=== PATIENT | male | born 1940 | race Caucasian/White ===

== ENCOUNTER 2018-03-11 14:46 | Outpatient (RCR) | payer MEDICARE, MEDICAID, SELFPAY ==
--- NOTE | 2018-03-11 18:17 | PCM.WC.HP ---
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 Current Visit: Yes Qualifiers: Diabetic foot ulcer location: toe Diabetes mellitus type: type 2 Qualified Code(s): E11.621 - Type 2 diabetes mellitus with foot ulcer; L97.524 - Non-pressure chronic ulcer of other part of left foot with necrosis of bone Code(s): E11.621 - Type 2 diabetes mellitus with foot ulcer; L97.524 - Non-pressure chronic ulcer of other part of left foot with necrosis of bone (3) Hyperlipidemia Status: Chronic Current Visit: Yes Qualifiers: Hyperlipidemia type: unspecified Qualified Code(s): E78.5 - Hyperlipidemia, unspecified Code(s): E78.5 - Hyperlipidemia, unspecified (4) Peripheral vascular disease Status: Chronic Current Visit: Yes Code(s): I73.9 - Peripheral vascular disease, unspecified (5) Obesity Status: Chronic Current Visit: Yes Qualifiers: Obesity type: due to excess calories Code(s): E66.9 - Obesity, unspecified (6) T2DM (type 2 diabetes mellitus) Status: Chronic Current Visit: Yes Qualifiers: Diabetes mellitus skilled nursing insulin use: with termite treater helper use Diabetes mellitus complication status: with neurologic complications Diabetes mellitus complication detail: with polyneuropathy Qualified Code(s): E11.42 - Type 2 diabetes mellitus with diabetic polyneuropathy; Z79.4 - oil heaterman (current) use of insulin Code(s): E11.9 - Type 2 diabetes mellitus without complications (7) CKD (chronic kidney disease) stage 3, GFR 30-59 ml/min Status: Chronic Current Visit: Yes Code(s): N18.3 - Chronic kidney disease, stage 3 (moderate) History of Present Illness Date of Service: 03/11/18 Chief Complaint: nonhealing wounds to 3rd and 4th toes History of Wound: Marshal is a 77 yo male that has been referred to the wound center for evaluation and treatment for nonhealing wounds of his 3rd and 4th toes by Dr. Testrake, his dairy chemist. He is a poor historian. He has had these wounds for several months, review of his recoords show that he was diagnosed with osteomyelitis possibly in December. He has been evaluated by vascular surgeon at [facility] regarding possible amputation of his affected toes and they have felt that he is not a candidate for surgery due to poor circulation and are concerned that he would not heal after surgery. His most recent xray wa sdone on 03/02/18 and showed continued osteomyelitis with loss of bone to distal phalanx of both his 3rd and 4th toes. He has been on doxycycline for several weeks for treatment of osteomyelitis but has not seen ID yet. He is currently on doxycycline BID and recent wound culture showed staph epidermidis. His wounds have been being dressed with betadine and gauze dressings. He was instructed to use a surgical shoe but has not been doing so consistently. His most recent A1C was 8.5% on 12/22/17. He is on dialysis T, , Sat. for ESRD. Hgb 03/02/18 was 11.5. ESR 96, CRP 6.3. Vascular studies have been done at [facility] and results have been requested. He denies any pain, fever or chills. He does note purulent drainage from his third toe when it is squeezed. 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 H/O coronary artery bypass surgery (Chronic) CAB10/16/02 @ [facility]: FALL to LAD, radial artery to the ramus intermedius, and SVG to the RCA. Hyperlipidemia (Chronic) Atherosclerotic heart disease of seminole coronary artery without angina pectoris (Chronic) PTCA with bare metal stent to seminole ramus intermedius and seminole cx July 2008; 05-07-09 PTCA/BMS to graft to ramus Intermedius. CAB10/16/02 @ [facility]: FALL to LAD, radial artery to the ramus intermedius, and SVG to the RCA. S/P coronary artery bypass graft x 2 (Chronic) CABG X 3, 10/16/2002 @ [facility], FALL to LAD, radial artery to ramus intermedius, SVG to RCA residential use of drug (Chronic) Peripheral vascular disease (Chronic) Family history of hypertension (Chronic) Shortness of breath (Chronic) Nonrheumatic tricuspid valve regurgitation (Chronic) Leg edema (Chronic) Bilateral Acute renal failure (ARF) (Chronic) Obesity (Chronic) T2DM (type 2 diabetes mellitus) (Chronic) CKD (chronic kidney disease) stage 3, GFR 30-59 ml/min (Chronic) Acute diastolic CHF (congestive heart failure) (Chronic) Chest pain (Chronic) Diabetes (Chronic) Hypertension (Chronic) Coronary artery disease (Chronic) Past Medical History: Chronic diastolic heart failure. CAD s/p CABG x 3 and 2 stents. Revascularization of left leg with angioplasty 02/15/13. revascularization of right SFA w/ stent 12/30/12. DM type II. ESRD on dialysis. HTN. Hyperlipidemia. Illiterate. PAD Surgical History: coronary bypass surgery, - - Orthopedic surgery of the right leg Allergies/Adverse Reactions: Allergies No Known Allergies Allergy (Verified 03/11/18 15:41) Home Medications: Ambulatory Orders Medication Instructions Recorded Amlodipine Besylate [Norvasc] 10 mg PO DAILY 09/18/16 Isosorbide Mononitrate [Isosorbide 60 mg PO DAILY 09/18/16 Mononitrate ER] Nitroglycerin [Nitrostat] 0.4 mg SUBLINGUAL Q5M PRN 09/18/16 Rosuvastatin Calcium [Crestor] 40 mg PO DAILY 09/18/16 Insulin Glargine,Hum.rec.anlog 10 unit SQ QHS 01/30/17 [Melva Garcia] Carvedilol [Coreg (Beta Tiburcio)] 6.25 mg PO BID #60 tab 02/11/17 Insulin Aspart [Novolog Flexpen] 16 units SC TIDAC 02/11/17 Tamsulosin HCl [Flomax] 0.4 mg PO DAILY@1730 #30 cap 02/11/17 hydrALAZINE [Apresoline] 25 mg PO TID #90 tab 02/11/17 Aspirin 03/11/18 Insulin Glargine,Hum.rec.anlog 300 unit SQ 03/11/18 [Melva Garcia] - Family History Maternal Family History: Family History (Last Updated 08/27/17 @ 13:13 by Marcelo Sanchez) Father CAD (coronary artery disease) Mother CAD (coronary artery disease) Daughter Hypertension CAD (coronary artery disease) Myocardial infarction Aunt Diabetes Unknown Lives: Alone Smoking Status: Former smoker Tobacco Use: Non-smoker Alcohol: None Drugs: None Review of Systems Constitutional: Denies: Chills, Fever, Weight Change Eyes: Denies: Pain, Vision Change HEENT: Denies: Difficulty Hearing, Difficulty Swallowing, Sinus Congestion Cardiovascular: Denies: Chest Pain, Palpitations Respiratory: Denies: Cough, Shortness of Breath Gastrointestinal: Denies: Diarrhea, Nausea, Vomiting Genitourinary: Denies: Dysuria, Hematuria Skin: Reports: Wounds Neurological: Reports: Numbness Endocrine: Denies: Heat/ Cold Intolerance, Polydipsia, Polyuria Hematologic/ Lymphatic: Denies: Easy Bruising, Easy Bleeding - Physical Exam General: Alert, Oriented x3, Cooperative, No apparent distress HEENT: Atraumatic, Normocephalic Oral: Moist Mucosa Lungs: Clear to auscultation Cardiovascular: Regular rate, Regular Rhythm Abdomen: Soft, Non Tender, Obese Extremities: No edema, Capillary Refill Less than 3 Seconds, Cool, Diminished Peripheral Pulses Skin: Ulcer/ Wound Wound Measurements and Assessment WC - Nurse 1 - General Ulcer Measurement Start: 03/11/18 14:59 Freq: Status: Active Protocol: Activity Type Activity Date Activity User E-Sign Co-Sign Detail Recorded Client Recorded Date Recorded By Document 03/11/18 16:03 TN [id number] 03/11/18 16:11 TN 03/11/18 16:03 Wound Center Nurse 1 [Ulcer Assessment] #2 L 4th toe -Combined with other wound No -Current Size (cm) - Length 0.5 -Current Size (cm) - Width 1.1 -Current Size (cm) - Depth 0.6 -Total Square Cm 0.55 -Date of Last Picture (Recall this 03/11/18 field) -Photo Taken Yes -Tunneling No -Undermining/Tunneling No -Circular Undermining No -Classification - Thickness Full Thickness without Exposed Support Structure -Change in Wound Grade/Stage No Query Text:If change please identify the Stage/Grade in the comment (ie. S2 G3) -Exudate Amt Small (1-33%) -Exudate Type Serous -Wound Margin Indistinct, Non -Visible -Granulation Amt None Present (0 %) -Necrosis Amt None Present (0 %) -Structure Exposed None/Limited to Skin Breakdown -Texture (Kalani-wound Skin Appearance) Assessed Localized Edema -Moisture (Kalani-wound Skin Appearance Assessed ) Maceration -Color (Kalani-wound Skin Appearance) Assessed Erythema -Temperature (Kalani-wound Skin No Abnormality Appearance) (Pt Warm) -Tenderness on Palpation (Kalani-wound No Skin Appearance) -Ulcer Cleansing Rinsed/ Irrigated with Saline -Foul Odor after Cleansing No -Anesthetic Used 5% Lidocaine Gel #1 L 3rd toe -Combined with other wound No -Current Size (cm) - Length 0.2 -Current Size (cm) - Width 0.2 -Current Size (cm) - Depth 0.2 -Total Square Cm 0.04 -Date of Last Picture (Recall this 03/11/18 field) -Photo Taken Yes -Epithelialization None Present -Tunneling No -Undermining/Tunneling No -Circular Undermining No -Classification - Thickness Full Thickness without Exposed Support Structure -Change in Wound Grade/Stage No Query Text:If change please identify the Stage/Grade in the comment (ie. S2 G3) -Exudate Amt Large (67-100%) -Exudate Type Purulent -Wound Margin Indistinct, Non -Visible -Granulation Amt None Present (0 %) -Slough/Fibrin No -Structure Exposed None/Limited to Skin Breakdown -Texture (Kalani-wound Skin Appearance) Assessed Localized Edema -Moisture (Kalani-wound Skin Appearance Assessed ) Maceration -Color (Kalani-wound Skin Appearance) Assessed Erythema -Temperature (Kalani-wound Skin No Abnormality Appearance) (Pt Warm) -Tenderness on Palpation (Kalani-wound No Skin Appearance) -Ulcer Cleansing Rinsed/ Irrigated with Saline -Foul Odor after Cleansing No -Anesthetic Used 5% Lidocaine Gel [Edema Assessment] -Lower Limb Edema Present No WC - Nurse 2 - General Ulcer CM Notes Start: 03/11/18 14:59 Freq: Status: Active Protocol: Activity Type Activity Date Activity User E-Sign Co-Sign Detail Recorded Client Recorded Date Recorded By Document 03/11/18 16:01 TM [id number] 03/11/18 16:38 03/11/18 16:01 Wound Center Nurse 2 [Procedure/Treatment] #3 left 3rd toe Superior @ 2oclock -Time 16:31 -Correct Patient Yes -Correct Side, Site, Position Yes -Correct Procedure Yes -Procedure Performed Yes -Type of Procedure Debridement -Clinical Debridement Subcutaneous -Post Debridement Size (cm) - Length 0.1 -Post Debridement Size (cm) - Width 0.2 -Post Debridement Size (cm) - Depth 0.6 -Total Square Cm 0.02 -Wound/Ulcer Outcome Not Healed -Ulcer Cleansing Rinsed/ Irrigated with Saline -Foul Odor after Cleansing No -Bioengineered Tissue No -Topical Lidocaine (%) 5 -Bleeding Controlled with Pressure -Treatment Response Procedure Tolerated Well #2 left 4th toe -Time 16:05 -Correct Patient Yes -Correct Side, Site, Position Yes -Correct Procedure Yes -Procedure Performed Yes -Type of Procedure Debridement -Clinical Debridement Subcutaneous -Post Debridement Size (cm) - Length 1.1 -Post Debridement Size (cm) - Width 1.2 -Post Debridement Size (cm) - Depth 0.6 -Total Square Cm 1.32 -Wound/Ulcer Outcome Not Healed -Ulcer Cleansing Rinsed/ Irrigated with Saline -Foul Odor after Cleansing No -Bioengineered Tissue No -Topical Lidocaine (%) 5 -Bleeding Controlled with Pressure -Treatment Response Procedure Tolerated Well #1 left 3rd toe inferior @ 12 oclock -Time 16:04 -Correct Patient Yes -Correct Side, Site, Position Yes -Correct Procedure Yes -Procedure Performed Yes -Type of Procedure Debridement -Clinical Debridement Subcutaneous -Post Debridement Size (cm) - Length 0.1 -Post Debridement Size (cm) - Width 0.1 -Post Debridement Size (cm) - Depth 1.7 -Total Square Cm 0.01 -Wound/Ulcer Outcome Not Healed -Ulcer Cleansing Rinsed/ Irrigated with Saline -Foul Odor after Cleansing No -Bioengineered Tissue No -Topical Lidocaine (%) 5 -Bleeding Controlled with Pressure -Treatment Response Procedure Tolerated Well [See Physician Procedure note for Specifics] Pain Scale: 0-10 Numeric [Pain] -Is Patient Pain Free? Yes Psych/Mental Status: Normal Affect, Appropriate Debridement Note Post-Debridement Measurements/Treatment WC - Nurse 2 - General Ulcer CM Notes Start: 03/11/18 14:59 Freq: Status: Active Protocol: Activity Type Activity Date Activity User E-Sign Co-Sign Detail Recorded Client Recorded Date Recorded By Document 03/11/18 16:01 [id number] 03/11/18 16:38 03/11/18 16:01 Wound Center Nurse 2 #3 left 3rd toe Superior @ 2oclock -Time 16:31 -Correct Patient Yes -Correct Side, Site, Position Yes -Correct Procedure Yes -Procedure Performed Yes -Type of Procedure Debridement -Clinical Debridement Subcutaneous -Post Debridement Size (cm) - Length 0.1 -Post Debridement Size (cm) - Width 0.2 -Post Debridement Size (cm) - Depth 0.6 -Total Square Cm 0.02 -Wound/Ulcer Outcome Not Healed -Ulcer Cleansing Rinsed/ Irrigated with Saline -Foul Odor after Cleansing No -Bioengineered Tissue No -Topical Lidocaine (%) 5 -Bleeding Controlled with Pressure -Treatment Response Procedure Tolerated Well #2 left 4th toe -Time 16:05 -Correct Patient Yes -Correct Side, Site, Position Yes -Correct Procedure Yes -Procedure Performed Yes -Type of Procedure Debridement -Clinical Debridement Subcutaneous -Post Debridement Size (cm) - Length 1.1 -Post Debridement Size (cm) - Width 1.2 -Post Debridement Size (cm) - Depth 0.6 -Total Square Cm 1.32 -Wound/Ulcer Outcome Not Healed -Ulcer Cleansing Rinsed/ Irrigated with Saline -Foul Odor after Cleansing No -Bioengineered Tissue No -Topical Lidocaine (%) 5 -Bleeding Controlled with Pressure -Treatment Response Procedure Tolerated Well #1 left 3rd toe inferior @ 12 oclock -Time 16:04 -Correct Patient Yes -Correct Side, Site, Position Yes -Correct Procedure Yes -Procedure Performed Yes -Type of Procedure Debridement -Clinical Debridement Subcutaneous -Post Debridement Size (cm) - Length 0.1 -Post Debridement Size (cm) - Width 0.1 -Post Debridement Size (cm) - Depth 1.7 -Total Square Cm 0.01 -Wound/Ulcer Outcome Not Healed -Ulcer Cleansing Rinsed/ Irrigated with Saline -Foul Odor after Cleansing No -Bioengineered Tissue No -Topical Lidocaine (%) 5 -Bleeding Controlled with Pressure -Treatment Response Procedure Tolerated Well Pain Scale: 0-10 Numeric Is Patient Pain Free? Yes Wound debrided: left 3rd toe superior @ 2 o'clock Laterality: Left Wound Grade/Stage: sargent stage 3 Type of Debridement: Excisional debridement Anesthesia Used: 4% Lidocaine Solution Depth: Down to and including healthy tissue, in the subcutaneous layer, to muscle, to bone Percentage of wound debrided: 100 Instrument Used: #15 blade, Forceps Tissue Removed: devitalized tissue, slough Severity: Necrosis of Bone Amount of bleeding with debridement: Mild Bleeding Controlled with: Compression and gauze Patient tolerated procedure well - Additional Wound Wound debrided: left 4th toe Laterality: Left Wound Grade/Stage: sargent stage 3 Type of Debridement: Excisional debridement Anesthesia Used: 4% Lidocaine Solution Depth: Down to and including healthy tissue, in the subcutaneous layer, to muscle, to bone Percentage of wound debrided: 100 Instrument Used: #15 blade, Forceps Tissue Removed: devitalized tissue, slough Severity: Necrosis of Bone Amount of bleeding with debridement: Mild Bleeding Controlled with: Compression and gauze Patient tolerated procedure: Patient tolerated procedure well - Additional Wound Wound debrided: left 3rd toe inferior @12 o'clock Laterality: Left Wound Grade/Stage: sargent stage 3 Type of Debridement: Excisional debridement Anesthesia Used: 4% Lidocaine Solution Depth: Down to and including healthy tissue, in the subcutaneous layer, to muscle, to bone Percentage of wound debrided: 100 Instrument Used: #15 blade, Forceps Tissue Removed: devitalized tissue, slough Severity: Necrosis of Bone Amount of bleeding with debridement: Mild Bleeding Controlled with: Compression and gauze Patient tolerated procedure: Patient tolerated procedure well Assessment/Plan Active Problems (Last Updated 08/27/17 @ 15:05 by JOHNY Brown) Diabetic foot ulcer with osteomyelitis (Chronic) 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 Chronic osteomyelitis. PAD. 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 Wound cultures were taken. Will have him continue doxycycline and would adjust based on wound culture results if needed as well as ID input. He is being referred for treatment recommendations for his chronic osteomyelitis to ID for consultation. Records regarding his vascular evaluation are being obtained. Will continue dressings with betadine and gauze presently. Advised consistent use of offloading surgical shoe that was previously prescribed for him which he has at home. Will discuss with podiatry at once all records are obtained and consider evaluation by podiatry staff here regarding his case. Will evaluate and consider treatment with HBO given his chronic osteomyelitis and diabetic foot ulcers. Encouraged improved glucose control and increased protein intake to promote healing. F/U in 1 week.
--- NOTE | 2018-03-16 13:05 | PCM.HP.ID ---
Reason for Consult: Diabetic host with chronic left foot wound concern of possible infection Consulted by: Dr. Roberta Ruiz History of Present Illness: The patient is a 77 year old M [] This is a 77-year-old gentleman with multiple comorbidities including long-standing type 2 diabetes mellitus, hypertension, chronic renal disease who is managed at the wound care center for his left foot wounds. He has had previous debridements of those left foot wounds in the past. Currently denies any fevers or chills denies any constitutional symptoms. He is currently on doxycycline which started roughly a week ago. On March 11 he had a wound culture obtained from his left foot mainly his third and fourth toe that grew coagulase-negative Staphylococcus. 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 H/O coronary artery bypass surgery (Chronic) CAB10/16/02 @ [facility]: FALL to LAD, radial artery to the ramus intermedius, and SVG to the RCA. Hyperlipidemia (Chronic) Atherosclerotic heart disease of platinum coronary artery without angina pectoris (Chronic) PTCA with bare metal stent to platinum ramus intermedius and platinum cx July 2008; 05-07-09 PTCA/BMS to graft to ramus Intermedius. CAB10/16/02 @ [facility]: FALL to LAD, radial artery to the ramus intermedius, and SVG to the RCA. S/P coronary artery bypass graft x 2 (Chronic) CABG X 3, 10/16/2002 @ [facility], FALL to LAD, radial artery to ramus intermedius, SVG to RCA intermodal customer service use of drug (Chronic) Peripheral vascular disease (Chronic) Family history of hypertension (Chronic) Shortness of breath (Chronic) Nonrheumatic tricuspid valve regurgitation (Chronic) Leg edema (Chronic) Bilateral Acute renal failure (ARF) (Chronic) Obesity (Chronic) T2DM (type 2 diabetes mellitus) (Chronic) CKD (chronic kidney disease) stage 3, GFR 30-59 ml/min (Chronic) Acute diastolic CHF (congestive heart failure) (Chronic) Chest pain (Chronic) Diabetes (Chronic) Hypertension (Chronic) Coronary artery disease (Chronic) Allergies/Adverse Reactions: Allergies No Known Allergies Allergy (Verified 03/11/18 15:41) Home Medications: Ambulatory Orders Medication Instructions Recorded Amlodipine Besylate [Norvasc] 10 mg PO DAILY 09/18/16 Isosorbide Mononitrate [Isosorbide 60 mg PO DAILY 09/18/16 Mononitrate ER] Nitroglycerin [Nitrostat] 0.4 mg SUBLINGUAL Q5M PRN 09/18/16 Rosuvastatin Calcium [Crestor] 40 mg PO DAILY 09/18/16 Insulin Glargine,Hum.rec.anlog 10 unit SQ QHS 01/30/17 [Toujeo Solostar] Carvedilol [Coreg (Beta Tiburcio)] 6.25 mg PO BID #60 tab 02/11/17 Insulin Aspart [Novolog Flexpen] 16 units SC TIDAC 02/11/17 Tamsulosin HCl [Flomax] 0.4 mg PO DAILY@1730 #30 cap 02/11/17 hydrALAZINE [Apresoline] 25 mg PO TID #90 tab 02/11/17 Aspirin 03/11/18 Insulin Glargine,Hum.rec.anlog 300 unit SQ 03/11/18 [Toujeo Solostar] Microbiology Past 72 Hours 03/11/18 17:47 Gram Stain - Final Wound - Toe Wound Culture - Final Staphylococcus haemolyticus Staphylococcus epidermidis Anaerobic Culture - Final No anaerobic bacteria isolated. - Other Studies Radiology: [] Other Studies: [] Route of nutrition/ use of supplements: [] Nutritional Intake: [] IV Site: [] Naqvi Catheter: [] Patient is alert and oriented ?3 does not appear toxic lungs are clear heart exam S1-S2 abdomen is obese but soft his left foot the third and fourth toe there is mild swelling but no gross purulent drainage. - Assessment/Plan Antibiotics: [] Assessment/Plan: [] Diabetic with small chronic left foot ulcers that do not look grossly infected. I strongly suspect that the cultures from March 11 with coagulase-negative Staphylococcus represent skin pathogens. At this point I advised him to finish off his course of doxycycline. No need for any further antibiotics beyond that point.
== END 2018-03-18 23:59 ==
LOC: WC 14:46
PROVIDERS: PCP Family Medicine; Visit Provider Family Medicine
DX: E11.621 Type 2 diabetes mellitus with foot ulcer (principal); E78.5 Hyperlipidemia, unspecified; E11.51 Type 2 diabetes mellitus with diabetic peripheral angiopathy without gangrene; E11.22 Type 2 diabetes mellitus with diabetic chronic kidney disease; N18.3 Chronic kidney disease, stage 3 (moderate); I50.32 Chronic diastolic (congestive) heart failure; I13.0 Hypertensive heart and chronic kidney disease with heart failure and stage 1 through stage 4 chronic kidney disease, or unspecified chronic kidney disease; I25.10 Atherosclerotic heart disease of native coronary artery without angina pectoris; Z95.1 Presence of aortocoronary bypass graft; L97.524 Non-pressure chronic ulcer of other part of left foot with necrosis of bone
CPT/HCPCS: 11042; 87070; 87075; 87077; 87186; 87205; 99213; G0463

== ENCOUNTER 2018-04-15 08:41 | Outpatient (RCR) | payer MEDICARE, MEDICAID, SELFPAY ==
[2018-04-15 15:58] VITALS: BP 133/66; PULSE 85; RESP 16; TEMP 36.4
--- NOTE | 2018-04-15 18:21 | PCM.WC.PN ---
(1) Chronic diastolic (congestive) heart failure Status: Chronic Current Visit: Yes Code(s): I50.32 - Chronic diastolic (congestive) heart failure (2) Coronary artery disease Status: Chronic Current Visit: Yes Qualifiers: Coronary Disease-Associated Artery/Lesion type: [place] artery [place] vs. transplanted heart: [place] heart Associated angina: angina presence unspecified Qualified Code(s): I25.10 - Atherosclerotic heart disease of [place] coronary artery without angina pectoris Code(s): I25.10 - Atherosclerotic heart disease of [place] coronary artery without angina pectoris (3) Diabetes Status: Chronic Current Visit: Yes Qualifiers: Diabetes mellitus type: type 2 Diabetes mellitus mcfp insulin use: with mcfp use Diabetes mellitus complication status: with kidney complications Diabetes mellitus complication detail: with chronic kidney disease Chronic kidney disease stage: on chronic dialysis Qualified Code(s): E11.22 - Type 2 diabetes mellitus with diabetic chronic kidney disease; N18.6 - End stage renal disease; Z79.4 - [facility]FP (current) use of insulin; Z99.2 - Dependence on renal dialysis Code(s): E11.9 - Type 2 diabetes mellitus without complications (4) Diabetic foot ulcer with osteomyelitis Status: Chronic Current Visit: Yes Code(s): E11.621 - Type 2 diabetes mellitus with foot ulcer; E11.69 - Type 2 diabetes mellitus with other specified complication; L97.509 - Non-pressure chronic ulcer of other part of unspecified foot with unspecified severity; M86.9 - Osteomyelitis, unspecified (5) 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 Status: Chronic Current Visit: Yes Qualifiers: Diabetic foot ulcer location: toe Diabetes mellitus type: type 2 Qualified Code(s): E11.621 - Type 2 diabetes mellitus with foot ulcer; L97.524 - Non-pressure chronic ulcer of other part of left foot with necrosis of bone Code(s): E11.621 - Type 2 diabetes mellitus with foot ulcer; L97.524 - Non-pressure chronic ulcer of other part of left foot with necrosis of bone (6) Peripheral vascular disease Status: Chronic Current Visit: Yes Code(s): I73.9 - Peripheral vascular disease, unspecified Type of Wound Chief Complaint: nonhealing wounds to 3rd and 4th toes History of Wound: Marshal is a 77 yo male that has been referred to the wound center for evaluation and treatment for nonhealing wounds of his 3rd and 4th toes by Dr. 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 He is a poor historian. He has had these wounds for several months, review of his records show that he was diagnosed with osteomyelitis possibly in December. He has been evaluated by vascular surgeon at [facility] regarding possible amputation of his affected toes and they have felt that he is not a candidate for surgery due to poor circulation and are concerned that he would not heal after surgery. His most recent xray was done on 03/02/18 and showed continued osteomyelitis with loss of bone to distal phalanx of both his 3rd and 4th toes. He has been on doxycycline for several weeks for treatment of osteomyelitis but has not seen ID yet. He is currently on doxycycline BID and recent wound culture showed staph epidermidis. His wounds have been being dressed with betadine and gauze dressings. He was instructed to use a surgical shoe but has not been doing so consistently. His most recent A1C was 8.5% on 12/22/17. He is on dialysis , , Wed. for ESRD. Hgb 03/02/18 was 11.5. ESR 96, CRP 6.3. He denies any pain, fever or chills. He does note purulent drainage from his third toe when it is squeezed. Progress of Wound: Marshal was seen by ID and they recommended completing oral antibiotics as ordered and did not add or feel it necessary to initiate IV antibiotics. He then failed to follow up for several weeks. He has not been using his surgical shoe and it is unclear as to whether he has been faithful with treating his toes with betadine. He presents in socks withou bandages and wearing sneakers. He denies any drainage from his toes or pain or any changes. He has not followed up with Dr. Dukes as he states he was told he does not need to return if he is being treated here. He continues to receive dialysis Tuesdays, and Saturdays. He denies any recent xrays of his foot or toes. - Physical Exam Vital Signs Temp Pulse Resp BP 97.5 F L 85 16 133/66 H 04/15/18 15:58 04/15/18 15:58 04/15/18 15:58 04/15/18 15:58 General: Alert, Oriented x3, Cooperative, No apparent distress HEENT: Atraumatic, Normocephalic Oral: Moist Mucosa Abdomen: Obese Extremities: Diminished Peripheral Pulses, Edema Skin: Ulcer/ Wound Wound Measurements and Assessment WC - Nurse 1 - General Ulcer Measurement Start: 04/15/18 13:50 Freq: Status: Active Protocol: Activity Type Activity Date Activity User E-Sign Co-Sign Detail Recorded Client Recorded Date Recorded By Document 04/15/18 15:58 [id number] 04/15/18 16:07 04/15/18 15:58 Wound Center Nurse 1 [Ulcer Assessment] #2 L 4th toe -Combined with other wound No -Current Size (cm) - Length 0.1 -Current Size (cm) - Width 0.1 -Current Size (cm) - Depth 0.1 -Total Square Cm 0.01 -Date of Last Picture (Recall this 04/15/18 field) -Photo Taken Yes #1 L 3rd toe -Combined with other wound No -Current Size (cm) - Length 0.1 -Current Size (cm) - Width 0.1 -Current Size (cm) - Depth 0.1 -Total Square Cm 0.01 -Date of Last Picture (Recall this 04/15/18 field) -Photo Taken Yes -Epithelialization Large 67-100% #3 left 3rd toe Superior @ 2oclock -Combined with other wound No -Current Size (cm) - Length 0.1 -Current Size (cm) - Width 0.1 -Current Size (cm) - Depth 0.1 -Total Square Cm 0.01 -Date of Last Picture (Recall this 04/15/18 field) -Photo Taken Yes -Epithelialization Large 67-100% - Nurse 2 - General Ulcer CM Notes Start: 04/15/18 13:50 Freq: Status: Active Protocol: Activity Type Activity Date Activity User E-Sign Co-Sign Detail Recorded Client Recorded Date Recorded By Document 04/15/18 16:30 [id number] 04/15/18 16:39 04/15/18 16:30 Wound Center Nurse 2 [Procedure/Treatment] #2 L 4th toe -Time 16:36 -Correct Patient Yes -Correct Side, Site, Position Yes -Correct Procedure Yes -Procedure Performed Yes -Type of Procedure Debridement -Clinical Debridement Subcutaneous -Post Debridement Size (cm) - Length 0.1 -Post Debridement Size (cm) - Width 0.8 -Post Debridement Size (cm) - Depth 0.3 -Total Square Cm 0.08 -Wound/Ulcer Outcome Not Healed -Ulcer Cleansing Rinsed/ Irrigated with Saline -Foul Odor after Cleansing No -Bioengineered Tissue No -Topical Lidocaine (%) 4 -Bleeding Controlled with Pressure -Treatment Response Procedure Tolerated Well #1 L 3rd toe -Time 16:36 -Correct Patient Yes -Correct Side, Site, Position Yes -Correct Procedure Yes -Procedure Performed Yes -Type of Procedure Debridement -Clinical Debridement Subcutaneous -Post Debridement Size (cm) - Length 0.1 -Post Debridement Size (cm) - Width 0.1 -Post Debridement Size (cm) - Depth 0.6 -Total Square Cm 0.01 -Wound/Ulcer Outcome Not Healed -Ulcer Cleansing Rinsed/ Irrigated with Saline -Foul Odor after Cleansing No -Bioengineered Tissue No -Topical Lidocaine (%) 4 -Bleeding Controlled with Pressure -Treatment Response Procedure Tolerated Well #3 left 3rd toe Superior @ 2oclock -Time 16:36 -Correct Patient Yes -Correct Side, Site, Position Yes -Correct Procedure Yes -Procedure Performed Yes -Type of Procedure Debridement -Clinical Debridement Subcutaneous -Post Debridement Size (cm) - Length 0.1 -Post Debridement Size (cm) - Width 0.1 -Post Debridement Size (cm) - Depth 0.8 -Total Square Cm 0.01 -Wound/Ulcer Outcome Not Healed -Ulcer Cleansing Rinsed/ Irrigated with Saline -Foul Odor after Cleansing No -Bioengineered Tissue No -Topical Lidocaine (%) 4 -Bleeding Controlled with Pressure -Treatment Response Procedure Tolerated Well [See Physician Procedure note for Specifics] Pain Scale: 0-10 Numeric [Pain] -Is Patient Pain Free? Yes Psych/Mental Status: Normal Affect, Appropriate Debridement Note Post-Debridement Measurements/Treatment WC - Nurse 2 - General Ulcer CM Notes Start: 04/15/18 13:50 Freq: Status: Active Protocol: Activity Type Activity Date Activity User E-Sign Co-Sign Detail Recorded Client Recorded Date Recorded By Document 04/15/18 16:30 TM [id number] 04/15/18 16:39 TM 04/15/18 16:30 Wound Center Nurse 2 #2 L 4th toe -Time 16:36 -Correct Patient Yes -Correct Side, Site, Position Yes -Correct Procedure Yes -Procedure Performed Yes -Type of Procedure Debridement -Clinical Debridement Subcutaneous -Post Debridement Size (cm) - Length 0.1 -Post Debridement Size (cm) - Width 0.8 -Post Debridement Size (cm) - Depth 0.3 -Total Square Cm 0.08 -Wound/Ulcer Outcome Not Healed -Ulcer Cleansing Rinsed/ Irrigated with Saline -Foul Odor after Cleansing No -Bioengineered Tissue No -Topical Lidocaine (%) 4 -Bleeding Controlled with Pressure -Treatment Response Procedure Tolerated Well #1 L 3rd toe -Time 16:36 -Correct Patient Yes -Correct Side, Site, Position Yes -Correct Procedure Yes -Procedure Performed Yes -Type of Procedure Debridement -Clinical Debridement Subcutaneous -Post Debridement Size (cm) - Length 0.1 -Post Debridement Size (cm) - Width 0.1 -Post Debridement Size (cm) - Depth 0.6 -Total Square Cm 0.01 -Wound/Ulcer Outcome Not Healed -Ulcer Cleansing Rinsed/ Irrigated with Saline -Foul Odor after Cleansing No -Bioengineered Tissue No -Topical Lidocaine (%) 4 -Bleeding Controlled with Pressure -Treatment Response Procedure Tolerated Well #3 left 3rd toe Superior @ 2oclock -Time 16:36 -Correct Patient Yes -Correct Side, Site, Position Yes -Correct Procedure Yes -Procedure Performed Yes -Type of Procedure Debridement -Clinical Debridement Subcutaneous -Post Debridement Size (cm) - Length 0.1 -Post Debridement Size (cm) - Width 0.1 -Post Debridement Size (cm) - Depth 0.8 -Total Square Cm 0.01 -Wound/Ulcer Outcome Not Healed -Ulcer Cleansing Rinsed/ Irrigated with Saline -Foul Odor after Cleansing No -Bioengineered Tissue No -Topical Lidocaine (%) 4 -Bleeding Controlled with Pressure -Treatment Response Procedure Tolerated Well Pain Scale: 0-10 Numeric Is Patient Pain Free? Yes Wound debrided: left fourth toe Laterality: Left Type of Debridement: Excisional debridement Anesthesia Used: 4% Lidocaine Solution Depth: Down to and including healthy tissue, in the subcutaneous layer Percentage of wound debrided: 100 Instrument Used: - - probe Tissue Removed: devitalized tissue Severity: Fat Layer Exposed Amount of bleeding with debridement: None Bleeding Controlled with: Pressure Patient tolerated procedure well - Additional Wound Wound debrided: left third toe 12 o'clock Laterality: Left Type of Debridement: Excisional debridement Anesthesia Used: 4% Lidocaine Solution Depth: Down to and including healthy tissue, in the subcutaneous layer Percentage of wound debrided: 100 Instrument Used: - - probe Tissue Removed: devitalized tissue Severity: Fat Layer Exposed Amount of bleeding with debridement: None Bleeding Controlled with: Pressure Patient tolerated procedure: Patient tolerated procedure well - Additional Wound Wound debrided: left htird toe 2 o'clock Laterality: Left Type of Debridement: Excisional debridement Anesthesia Used: 4% Lidocaine Solution Depth: Down to and including healthy tissue, in the subcutaneous layer Percentage of wound debrided: 100 Instrument Used: - - probe Tissue Removed: devitalized tissue Severity: Fat Layer Exposed Amount of bleeding with debridement: None Bleeding Controlled with: Pressure Patient tolerated procedure: Patient tolerated procedure well Assessment/Plan Active Problems (Last Updated 08/27/17 @ 15:05 by JOHNY Brown) Diabetic foot ulcer with osteomyelitis (Chronic) 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 Chronic osteomyelitis. PAD. 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 The openings in his toes are still present and purulence can be expressed upon placing pressure on his toes. Orders given to evaluate him for possible treatment with hyperbaric oxygen. EKG, chest xray and xrays of his foot and toes ordered as well as updated labs. Concerns for noncompliance with medical treatment are present. He was encouraged to wear surgical shoe to offload his toes and to dress his wounds daily with betadine and gauze even if he feels that they are healed. Advised against soaking his feet in Epsom salts. Records regarding his vascular evaluation peripheral arterial disease without significant venous disease. Will continue dressings with betadine and gauze presently. Advised consistent use of offloading surgical shoe that was previously prescribed for him which he has at home. Will evaluate and consider treatment with HBO given his chronic osteomyelitis and diabetic foot ulcers. Encouraged improved glucose control and increased protein intake to promote healing. F/U in 1 week for formal HBO consult. If he does not complete requested testing and/or does not show up for appintment next week would consider discharge for noncompliance.
== END 2018-04-17 23:59 ==
LOC: WC 08:41
PROVIDERS: PCP Family Medicine; Visit Provider Family Medicine
DX: E11.621 Type 2 diabetes mellitus with foot ulcer (principal); L97.523 Non-pressure chronic ulcer of other part of left foot with necrosis of muscle; I25.10 Atherosclerotic heart disease of native coronary artery without angina pectoris; E11.22 Type 2 diabetes mellitus with diabetic chronic kidney disease; Z79.4 Long term (current) use of insulin; N18.6 End stage renal disease; I50.32 Chronic diastolic (congestive) heart failure; E11.51 Type 2 diabetes mellitus with diabetic peripheral angiopathy without gangrene; M86.679 Other chronic osteomyelitis, unspecified ankle and foot
CPT/HCPCS: 11042

== ENCOUNTER 2018-06-17 14:30 | Outpatient (RCR) | payer MEDICARE, MEDICAID, SELFPAY ==
[2018-04-18 01:27] VITALS: BP 133/66; PULSE 85; RESP 16; TEMP 36.4
[2018-05-20 16:14] VITALS: BP 117/56; PULSE 81; RESP 16; TEMP 35.7
--- NOTE | 2018-05-20 18:31 | PCM.WC.PN ---
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 Current Visit: Yes Qualifiers: Diabetic foot ulcer location: toe Diabetes mellitus type: type 2 Qualified Code(s): E11.621 - Type 2 diabetes mellitus with foot ulcer; L97.524 - Non-pressure chronic ulcer of other part of left foot with necrosis of bone Code(s): E11.621 - Type 2 diabetes mellitus with foot ulcer; L97.524 - Non-pressure chronic ulcer of other part of left foot with necrosis of bone (3) T2DM (type 2 diabetes mellitus) Status: Chronic Current Visit: Yes Qualifiers: Diabetes mellitus terminal clerk insulin use: with fci use Diabetes mellitus complication status: with kidney complications Diabetes mellitus complication detail: with chronic kidney disease Chronic kidney disease stage: on chronic dialysis Qualified Code(s): E11.22 - Type 2 diabetes mellitus with diabetic chronic kidney disease; N18.6 - End stage renal disease; Z79.4 - meterman (current) use of insulin; Z99.2 - Dependence on renal dialysis Code(s): E11.9 - Type 2 diabetes mellitus without complications (4) Chronic kidney disease (CKD) stage G5/A1, glomerular filtration rate (GFR) less than or equal to 15 mL/min/1.73 square meter and albuminuria creatinine ratio less than 30 mg/g Status: Chronic Current Visit: Yes Code(s): N18.5 - Chronic kidney disease, stage 5 Type of Wound Date of Service: 05/20/18 Chief Complaint: nonhealing wounds to all toes History of Wound: Marshal is a 77 yo male that has been referred to the wound center for evaluation and treatment for nonhealing wounds of his 3rd and 4th toes by Dr. Dukes, his blanket inspector. He is a poor historian. He has had these wounds for several months, review of his records show that he was diagnosed with osteomyelitis possibly in December. He has been evaluated by vascular surgeon at [facility] regarding possible amputation of his affected toes and they have felt that he is not a candidate for surgery due to poor circulation and are concerned that he would not heal after surgery. His most recent xray was done on 03/02/18 and showed continued osteomyelitis with loss of bone to distal phalanx of both his 3rd and 4th toes. He has been on doxycycline for several weeks for treatment of osteomyelitis but has not seen ID yet. He is currently on doxycycline BID and recent wound culture showed staph epidermidis. His wounds have been being dressed with betadine and gauze dressings. He was instructed to use a surgical shoe but has not been doing so consistently. His most recent A1C was 8.5% on 12/22/17. He is on dialysis T, , Sat. for ESRD. Hgb 03/02/18 was 11.5. ESR 96, CRP 6.3. He denies any pain, fever or chills. He does note purulent drainage from his third toe when it is squeezed. Progress of Wound: Marshal was seen by ID and they recommended completing oral antibiotics as ordered and did not add or feel it necessary to initiate IV antibiotics. He then failed to follow up for several weeks. He has not been using his surgical shoe and it is unclear as to whether he has been faithful with treating his toes with betadine. He presents in socks without bandages and wearing sneakers. He denies any drainage from his toes or pain or any changes. He has not followed up with Dr. Dukes as he states he was told he does not need to return if he is being treated here. He continues to receive dialysis Tuesdays, and Saturdays. Xray on 04/21/18, showed progression of osteomyelitis to all toes. He has been noncompliant with visits at the wound center and questionable compliance with podiatry visits as well. - Physical Exam Vital Signs Temp Pulse Resp BP 96.2 F L 81 16 117/56 L 05/20/18 16:14 05/20/18 16:14 05/20/18 16:14 05/20/18 16:14 General: Alert, Oriented x3, Cooperative, No apparent distress HEENT: Atraumatic, Normocephalic Oral: Moist Mucosa Abdomen: Obese Extremities: Edema Skin: Ulcer/ Wound Wound Measurements and Assessment WC - Nurse 1 - General Ulcer Measurement Start: 05/20/18 16:14 Freq: Status: Active Protocol: Activity Type Activity Date Activity User E-Sign Co-Sign Detail Recorded Client Recorded Date Recorded By Document 05/20/18 16:14 [facility] [id number] 05/20/18 16:22 [facility] 05/20/18 16:14 Wound Center Nurse 1 [Ulcer Assessment] #2 L 4th toe -Combined with other wound No -Current Size (cm) - Length 0.1 -Current Size (cm) - Width 0.1 -Current Size (cm) - Depth 0.1 -Total Square Cm 0.01 -Date of Last Picture (Recall this 05/20/18 field) -Photo Taken Yes -Epithelialization Large 67-100% #1 L 3rd toe -Combined with other wound No -Current Size (cm) - Length 0.1 -Current Size (cm) - Width 0.1 -Current Size (cm) - Depth 0.1 -Total Square Cm 0.01 -Date of Last Picture (Recall this 05/20/18 field) -Photo Taken Yes -Epithelialization Large 67-100% #3 left 3rd toe Superior @ 2oclock -Combined with other wound No -Current Size (cm) - Length 0.1 -Current Size (cm) - Width 0.1 -Current Size (cm) - Depth 0.1 -Total Square Cm 0.01 -Date of Last Picture (Recall this 05/20/18 field) -Photo Taken Yes -Epithelialization Large 67-100% WC - Nurse 2 - General Ulcer CM Notes Start: 05/20/18 16:14 Freq: Status: Active Protocol: Activity Type Activity Date Activity User E-Sign Co-Sign Detail Recorded Client Recorded Date Recorded By Document 05/20/18 16:37 [id number] 05/20/18 16:50 05/20/18 16:37 Wound Center Nurse 2 [Procedure/Treatment] #2 L 4th toe -Time 16:38 -Correct Patient Yes -Correct Side, Site, Position Yes -Correct Procedure Yes -Procedure Performed Yes -Type of Procedure Debridement -Clinical Debridement Subcutaneous -Post Debridement Size (cm) - Length 0.5 -Post Debridement Size (cm) - Width 0.2 -Post Debridement Size (cm) - Depth 0.6 -Total Square Cm 0.10 -Wound/Ulcer Outcome Not Healed -Ulcer Cleansing Not Cleansed -Foul Odor after Cleansing No -Bioengineered Tissue No -Bleeding Controlled with NA -Treatment Response Procedure Tolerated Well #1 L 3rd toe -Time 16:39 -Correct Patient Yes -Correct Side, Site, Position Yes -Correct Procedure Yes -Procedure Performed Yes -Type of Procedure Debridement -Clinical Debridement Subcutaneous -Post Debridement Size (cm) - Length 0.1 -Post Debridement Size (cm) - Width 0.1 -Post Debridement Size (cm) - Depth 0.5 -Total Square Cm 0.01 -Wound/Ulcer Outcome Not Healed -Ulcer Cleansing Not Cleansed -Foul Odor after Cleansing No -Bioengineered Tissue No -Bleeding Controlled with NA -Treatment Response Procedure Tolerated Well #3 left 3rd toe Superior @ 2oclock -Time 16:39 -Correct Patient Yes -Correct Side, Site, Position Yes -Correct Procedure Yes -Procedure Performed Yes -Type of Procedure Debridement -Clinical Debridement Subcutaneous -Post Debridement Size (cm) - Length 0.2 -Post Debridement Size (cm) - Width 0.1 -Post Debridement Size (cm) - Depth 0.6 -Total Square Cm 0.02 -Wound/Ulcer Outcome Not Healed -Ulcer Cleansing Not Cleansed -Foul Odor after Cleansing No -Bioengineered Tissue No -Bleeding Controlled with NA -Treatment Response Procedure Tolerated Well [See Physician Procedure note for Specifics] Pain Scale: 0-10 Numeric [Pain] -Is Patient Pain Free? Yes Psych/Mental Status: Normal Affect, Appropriate Debridement Note Post-Debridement Measurements/Treatment WC - Nurse 2 - General Ulcer CM Notes Start: 05/20/18 16:14 Freq: Status: Active Protocol: Activity Type Activity Date Activity User E-Sign Co-Sign Detail Recorded Client Recorded Date Recorded By Document 05/20/18 16:37 [id number] 05/20/18 16:50 05/20/18 16:37 Wound Center Nurse 2 #2 L 4th toe -Time 16:38 -Correct Patient Yes -Correct Side, Site, Position Yes -Correct Procedure Yes -Procedure Performed Yes -Type of Procedure Debridement -Clinical Debridement Subcutaneous -Post Debridement Size (cm) - Length 0.5 -Post Debridement Size (cm) - Width 0.2 -Post Debridement Size (cm) - Depth 0.6 -Total Square Cm 0.10 -Wound/Ulcer Outcome Not Healed -Ulcer Cleansing Not Cleansed -Foul Odor after Cleansing No -Bioengineered Tissue No -Bleeding Controlled with NA -Treatment Response Procedure Tolerated Well #1 L 3rd toe -Time 16:39 -Correct Patient Yes -Correct Side, Site, Position Yes -Correct Procedure Yes -Procedure Performed Yes -Type of Procedure Debridement -Clinical Debridement Subcutaneous -Post Debridement Size (cm) - Length 0.1 -Post Debridement Size (cm) - Width 0.1 -Post Debridement Size (cm) - Depth 0.5 -Total Square Cm 0.01 -Wound/Ulcer Outcome Not Healed -Ulcer Cleansing Not Cleansed -Foul Odor after Cleansing No -Bioengineered Tissue No -Bleeding Controlled with NA -Treatment Response Procedure Tolerated Well #3 left 3rd toe Superior @ 2oclock -Time 16:39 -Correct Patient Yes -Correct Side, Site, Position Yes -Correct Procedure Yes -Procedure Performed Yes -Type of Procedure Debridement -Clinical Debridement Subcutaneous -Post Debridement Size (cm) - Length 0.2 -Post Debridement Size (cm) - Width 0.1 -Post Debridement Size (cm) - Depth 0.6 -Total Square Cm 0.02 -Wound/Ulcer Outcome Not Healed -Ulcer Cleansing Not Cleansed -Foul Odor after Cleansing No -Bioengineered Tissue No -Bleeding Controlled with NA -Treatment Response Procedure Tolerated Well Pain Scale: 0-10 Numeric Is Patient Pain Free? Yes Wound debrided: left 4th toe Laterality: Left Type of Debridement: Excisional debridement Anesthesia Used: 4% Lidocaine Solution Depth: Down to and including healthy tissue, in the subcutaneous layer Percentage of wound debrided: 100 Instrument Used: - - 1 cm curette Tissue Removed: devitalized tissue, yellow slough Severity: Necrosis of Bone Amount of bleeding with debridement: None Patient tolerated procedure well - Additional Wound Wound debrided: left 3rd toe superior 2 o'clock Laterality: Left Type of Debridement: Excisional debridement Anesthesia Used: 4% Lidocaine Solution Depth: Down to and including healthy tissue, in the subcutaneous layer Percentage of wound debrided: 100 Instrument Used: - - 1 cm curette Tissue Removed: devitalized tissue, yellow slough Severity: Necrosis of Bone Amount of bleeding with debridement: None Patient tolerated procedure: Patient tolerated procedure well - Additional Wound Wound debrided: left 3rd toe Laterality: Left Type of Debridement: Excisional debridement Anesthesia Used: 4% Lidocaine Solution Depth: Down to and including healthy tissue, in the subcutaneous layer Percentage of wound debrided: 100 Instrument Used: - - 1 cm curette Tissue Removed: devitalized tissue, yellow slough Severity: Fat Layer Exposed Amount of bleeding with debridement: None Patient tolerated procedure: Patient tolerated procedure well Assessment/Plan Active Problems (Last Updated 08/27/17 @ 15:05 by JOHNY Brown) Diabetic foot ulcer with osteomyelitis (Chronic) 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 Chronic osteomyelitis. PAD. DM type 2 w/ ESRD on dialysis, uncontrolled last A1C 05/05 8.8% Plan: Marshal was evaluated today and his wounds were debrided. The openings in his toes are still present and purulence can be expressed upon placing pressure on his toes. Orders given to evaluate him for possible treatment with hyperbaric oxygen at his last visit a month ago but weren't completed. Xrays of his foot and toes ordered to evaluate his osteomyelitis for further progression. Worsened as of 04/21/18. Concerns for noncompliance with medical treatment are present. He was encouraged to wear surgical shoe to offload his toes and to dress his wounds daily with betadine and gauze even if he feels that they are healed. Advised against soaking his feet in Epsom salts. Records regarding his vascular evaluation peripheral arterial disease without significant venous disease. Will continue dressings with betadine and gauze presently. Advised consistent use of offloading surgical shoe that was previously prescribed for him which he has at home. Will evaluate and consider treatment with HBO given his chronic osteomyelitis and diabetic foot ulcers. Encouraged improved glucose control and increased protein intake to promote healing. F/U in 1 week. If he does not complete requested testing and/or does not show up for appintment next week would consider discharge for noncompliance.
--- NOTE | 2018-05-20 18:42 | PN.PCM_ITS ---
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 Current Visit: Yes Qualifiers: Diabetic foot ulcer location: toe Diabetes mellitus type: type 2 Qualified Code(s): E11.621 - Type 2 diabetes mellitus with foot ulcer; L97.524 - Non-pressure chronic ulcer of other part of left foot with necrosis of bone Code(s): E11.621 - Type 2 diabetes mellitus with foot ulcer; L97.524 - Non- pressure chronic ulcer of other part of left foot with necrosis of bone (3) T2DM (type 2 diabetes mellitus) Status: Chronic Current Visit: Yes Qualifiers: 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 Diabetes mellitus complication status: with kidney complications Diabetes mellitus complication detail: with chronic kidney disease Chronic kidney disease stage: on chronic dialysis Qualified Code(s): E11.22 - Type 2 diabetes mellitus with diabetic chronic kidney disease; N18.6 - End stage renal disease; 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; Z99.2 - Dependence on renal dialysis Code(s): E11.9 - Type 2 diabetes mellitus without complications (4) Chronic kidney disease (CKD) stage G5/A1, glomerular filtration rate (GFR) less than or equal to 15 mL/min/1.73 square meter and albuminuria creatinine ratio less than 30 mg/g Status: Chronic Current Visit: Yes Code(s): N18.5 - Chronic kidney disease, stage 5 Type of Wound Date of Service: 05/20/18 Chief Complaint: nonhealing wounds to all toes History of Wound: Marshal is a 77 yo male that has been referred to the wound center for evaluation and treatment for nonhealing wounds of his 3rd and 4th toes 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 He is a poor historian. He has had these wounds for several months, review of his records show that he was diagnosed with osteomyelitis possibly in December. He has been evaluated by vascular surgeon at [facility] regarding possible amputation of his affected toes and they have felt that he is not a candidate for surgery due to poor circulation and are concerned that he would not heal after surgery. His most recent xray was done on 03/02/18 and showed continued osteomyelitis with loss of bone to distal phalanx of both his 3rd and 4th toes. He has been on doxycycline for several weeks for treatment of osteomyelitis but has not seen ID yet. He is currently on doxycycline BID and recent wound culture showed staph epidermidis. His wounds have been being dressed with betadine and gauze dressings. He was instructed to use a surgical shoe but has not been doing so consistently. His most recent A1C was 8.5% on 12/22/17. He is on dialysis T, , Sat. for ESRD. Hgb 03/02/18 was 11.5. ESR 96, CRP 6.3. He denies any pain, fever or chills. He does note purulent drainage from his third toe when it is squeezed. Progress of Wound: Marshal was seen by ID and they recommended completing oral antibiotics as ordered and did not add or feel it necessary to initiate IV antibiotics. He then failed to follow up for several weeks. He has not been using his surgical shoe and it is unclear as to whether he has been faithful with treating his toes with betadine. He presents in socks without bandages and wearing sneakers. He denies any drainage from his toes or pain or any changes. He has not followed up with Dr. Dukes as he states he was told he does not need to return if he is being treated here. He continues to receive dialysis Tuesdays, and Saturdays. Xray on 04/21/18, showed progression of osteomyelitis to all toes. He has been noncompliant with visits at the wound center and questionable compliance with podiatry visits as well. - Physical Exam Vital Signs Temp Pulse Resp BP 96.2 F L 81 16 117/56 L 05/20/18 16:14 05/20/18 16:14 05/20/18 16:14 05/20/18 16:14 General: Alert, Oriented x3, Cooperative, No apparent distress HEENT: Atraumatic, Normocephalic Oral: Moist Mucosa Abdomen: Obese Extremities: Edema Skin: Ulcer/ Wound Wound Measurements and Assessment WC - Nurse 1 - General Ulcer Measurement Start: 05/20/18 16:14 Freq: Status: Active Protocol: Activity Type Activity Date Activity User E-Sign Co-Sign Detail Recorded Client Recorded Date Recorded By Document 05/20/18 16:14 [facility] [id number] 05/20/18 16:22 [facility] 05/20/18 16:14 Wound Center Nurse 1 [Ulcer Assessment] #2 L 4th toe -Combined with other wound No -Current Size (cm) - Length 0.1 -Current Size (cm) - Width 0.1 -Current Size (cm) - Depth 0.1 -Total Square Cm 0.01 -Date of Last Picture (Recall this 05/20/18 field) -Photo Taken Yes -Epithelialization Large 67-100% #1 L 3rd toe -Combined with other wound No -Current Size (cm) - Length 0.1 -Current Size (cm) - Width 0.1 -Current Size (cm) - Depth 0.1 -Total Square Cm 0.01 -Date of Last Picture (Recall this 05/20/18 field) -Photo Taken Yes -Epithelialization Large 67-100% #3 left 3rd toe Superior @ 2oclock -Combined with other wound No -Current Size (cm) - Length 0.1 -Current Size (cm) - Width 0.1 -Current Size (cm) - Depth 0.1 -Total Square Cm 0.01 -Date of Last Picture (Recall this 05/20/18 field) -Photo Taken Yes -Epithelialization Large 67-100% WC - Nurse 2 - General Ulcer CM Notes Start: 05/20/18 16:14 Freq: Status: Active Protocol: Activity Type Activity Date Activity User E-Sign Co-Sign Detail Recorded Client Recorded Date Recorded By Document 05/20/18 16:37 [id number] 05/20/18 16:50 05/20/18 16:37 Wound Center Nurse 2 [Procedure/Treatment] #2 L 4th toe -Time 16:38 -Correct Patient Yes -Correct Side, Site, Position Yes -Correct Procedure Yes -Procedure Performed Yes -Type of Procedure Debridement -Clinical Debridement Subcutaneous -Post Debridement Size (cm) - Length 0.5 -Post Debridement Size (cm) - Width 0.2 -Post Debridement Size (cm) - Depth 0.6 -Total Square Cm 0.10 -Wound/Ulcer Outcome Not Healed -Ulcer Cleansing Not Cleansed -Foul Odor after Cleansing No -Bioengineered Tissue No -Bleeding Controlled with NA -Treatment Response Procedure Tolerated Well #1 L 3rd toe -Time 16:39 -Correct Patient Yes -Correct Side, Site, Position Yes -Correct Procedure Yes -Procedure Performed Yes -Type of Procedure Debridement -Clinical Debridement Subcutaneous -Post Debridement Size (cm) - Length 0.1 -Post Debridement Size (cm) - Width 0.1 -Post Debridement Size (cm) - Depth 0.5 -Total Square Cm 0.01 -Wound/Ulcer Outcome Not Healed -Ulcer Cleansing Not Cleansed -Foul Odor after Cleansing No -Bioengineered Tissue No -Bleeding Controlled with NA -Treatment Response Procedure Tolerated Well #3 left 3rd toe Superior @ 2oclock -Time 16:39 -Correct Patient Yes -Correct Side, Site, Position Yes -Correct Procedure Yes -Procedure Performed Yes -Type of Procedure Debridement -Clinical Debridement Subcutaneous -Post Debridement Size (cm) - Length 0.2 -Post Debridement Size (cm) - Width 0.1 -Post Debridement Size (cm) - Depth 0.6 -Total Square Cm 0.02 -Wound/Ulcer Outcome Not Healed -Ulcer Cleansing Not Cleansed -Foul Odor after Cleansing No -Bioengineered Tissue No -Bleeding Controlled with NA -Treatment Response Procedure Tolerated Well [See Physician Procedure note for Specifics] Pain Scale: 0-10 Numeric [Pain] -Is Patient Pain Free? Yes Psych/Mental Status: Normal Affect, Appropriate Debridement Note Post-Debridement Measurements/Treatment WC - Nurse 2 - General Ulcer CM Notes Start: 05/20/18 16:14 Freq: Status: Active Protocol: Activity Type Activity Date Activity User E-Sign Co-Sign Detail Recorded Client Recorded Date Recorded By Document 05/20/18 16:37 [id number] 05/20/18 16:50 05/20/18 16:37 Wound Center Nurse 2 #2 L 4th toe -Time 16:38 -Correct Patient Yes -Correct Side, Site, Position Yes -Correct Procedure Yes -Procedure Performed Yes -Type of Procedure Debridement -Clinical Debridement Subcutaneous -Post Debridement Size (cm) - Length 0.5 -Post Debridement Size (cm) - Width 0.2 -Post Debridement Size (cm) - Depth 0.6 -Total Square Cm 0.10 -Wound/Ulcer Outcome Not Healed -Ulcer Cleansing Not Cleansed -Foul Odor after Cleansing No -Bioengineered Tissue No -Bleeding Controlled with NA -Treatment Response Procedure Tolerated Well #1 L 3rd toe -Time 16:39 -Correct Patient Yes -Correct Side, Site, Position Yes -Correct Procedure Yes -Procedure Performed Yes -Type of Procedure Debridement -Clinical Debridement Subcutaneous -Post Debridement Size (cm) - Length 0.1 -Post Debridement Size (cm) - Width 0.1 -Post Debridement Size (cm) - Depth 0.5 -Total Square Cm 0.01 -Wound/Ulcer Outcome Not Healed -Ulcer Cleansing Not Cleansed -Foul Odor after Cleansing No -Bioengineered Tissue No -Bleeding Controlled with NA -Treatment Response Procedure Tolerated Well #3 left 3rd toe Superior @ 2oclock -Time 16:39 -Correct Patient Yes -Correct Side, Site, Position Yes -Correct Procedure Yes -Procedure Performed Yes -Type of Procedure Debridement -Clinical Debridement Subcutaneous -Post Debridement Size (cm) - Length 0.2 -Post Debridement Size (cm) - Width 0.1 -Post Debridement Size (cm) - Depth 0.6 -Total Square Cm 0.02 -Wound/Ulcer Outcome Not Healed -Ulcer Cleansing Not Cleansed -Foul Odor after Cleansing No -Bioengineered Tissue No -Bleeding Controlled with NA -Treatment Response Procedure Tolerated Well Pain Scale: 0-10 Numeric Is Patient Pain Free? Yes Wound debrided: left 4th toe Laterality: Left Type of Debridement: Excisional debridement Anesthesia Used: 4% Lidocaine Solution Depth: Down to and including healthy tissue, in the subcutaneous layer Percentage of wound debrided: 100 Instrument Used: - - 1 cm curette Tissue Removed: devitalized tissue, yellow slough Severity: Necrosis of Bone Amount of bleeding with debridement: None Patient tolerated procedure well - Additional Wound Wound debrided: left 3rd toe superior 2 o'clock Laterality: Left Type of Debridement: Excisional debridement Anesthesia Used: 4% Lidocaine Solution Depth: Down to and including healthy tissue, in the subcutaneous layer Percentage of wound debrided: 100 Instrument Used: - - 1 cm curette Tissue Removed: devitalized tissue, yellow slough Severity: Necrosis of Bone Amount of bleeding with debridement: None Patient tolerated procedure: Patient tolerated procedure well - Additional Wound Wound debrided: left 3rd toe Laterality: Left Type of Debridement: Excisional debridement Anesthesia Used: 4% Lidocaine Solution Depth: Down to and including healthy tissue, in the subcutaneous layer Percentage of wound debrided: 100 Instrument Used: - - 1 cm curette Tissue Removed: devitalized tissue, yellow slough Severity: Fat Layer Exposed Amount of bleeding with debridement: None Patient tolerated procedure: Patient tolerated procedure well Assessment/Plan Active Problems (Last Updated 08/27/17 @ 15:05 by JOHNY Brown) Diabetic foot ulcer with osteomyelitis (Chronic) 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 Chronic osteomyelitis. PAD. DM type 2 w/ ESRD on dialysis, uncontrolled last A1C 05/05 8.8% Plan: Marshal was evaluated today and his wounds were debrided. The openings in his toes are still present and purulence can be expressed upon placing pressure on his toes. Orders given to evaluate him for possible treatment with hyperbaric oxygen at his last visit a month ago but weren't completed. Xrays of his foot and toes ordered to evaluate his osteomyelitis for further progression. Worsened as of 04/21/18. Concerns for noncompliance with medical treatment are present. He was encouraged to wear surgical shoe to offload his toes and to dress his wounds daily with betadine and gauze even if he feels that they are healed. Advised against soaking his feet in Epsom salts. Records regarding his vascular evaluation peripheral arterial disease without significant venous disease. Will continue dressings with betadine and gauze presently. Advised consistent use of offloading surgical shoe that was previously prescribed for him which he has at home. Will evaluate and consider treatment with HBO given his chronic osteomyelitis and diabetic foot ulcers. Encouraged improved glucose control and increased protein intake to promote healing. F/U in 1 week. If he does not complete requested testing and/or does not show up for appintment next week w ould consider discharge for noncompliance.
[2018-05-27 15:49] VITALS: BP 117/67; PULSE 78; RESP 18; TEMP 36.8
--- NOTE | 2018-05-27 17:35 | PCM.WC.PN ---
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 Current Visit: Yes Qualifiers: Diabetic foot ulcer location: toe Diabetes mellitus type: type 2 Qualified Code(s): E11.621 - Type 2 diabetes mellitus with foot ulcer; L97.524 - Non-pressure chronic ulcer of other part of left foot with necrosis of bone Code(s): E11.621 - Type 2 diabetes mellitus with foot ulcer; L97.524 - Non-pressure chronic ulcer of other part of left foot with necrosis of bone (3) T2DM (type 2 diabetes mellitus) Status: Chronic Current Visit: Yes Qualifiers: 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 insulin 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: with chcf use Diabetes mellitus complication status: with kidney complications Diabetes mellitus complication detail: with chronic kidney disease Chronic kidney disease stage: on chronic dialysis Qualified Code(s): E11.22 - Type 2 diabetes mellitus with diabetic chronic kidney disease; N18.6 - End stage renal disease; 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 of 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; Z99.2 - Dependence on renal dialysis Code(s): E11.9 - Type 2 diabetes mellitus without complications (4) Chronic kidney disease (CKD) stage G5/A1, glomerular filtration rate (GFR) less than or equal to 15 mL/min/1.73 square meter and albuminuria creatinine ratio less than 30 mg/g Status: Chronic Current Visit: Yes Code(s): N18.5 - Chronic kidney disease, stage 5 Type of Wound Date of Service: 05/27/18 Chief Complaint: nonhealing wounds to all toes History of Wound: Marshal is a 77 yo male that has been referred to the wound center for evaluation and treatment for nonhealing wounds of his 3rd and 4th toes by 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 He is a poor historian. He has had these wounds for several months, review of his records show that he was diagnosed with osteomyelitis possibly in December. He has been evaluated by vascular surgeon at [facility] regarding possible amputation of his affected toes and they have felt that he is not a candidate for surgery due to poor circulation and are concerned that he would not heal after surgery. His most recent xray was done on 03/02/18 and showed continued osteomyelitis with loss of bone to distal phalanx of both his 3rd and 4th toes. He has been on doxycycline for several weeks for treatment of osteomyelitis but has not seen ID yet. He is currently on doxycycline BID and recent wound culture showed staph epidermidis. His wounds have been being dressed with betadine and gauze dressings. He was instructed to use a surgical shoe but has not been doing so consistently. His most recent A1C was 8.5% on 12/22/17. He is on dialysis T, , Sat. for ESRD. Hgb 03/02/18 was 11.5. ESR 96, CRP 6.3. He denies any pain, fever or chills. He does note purulent drainage from his third toe when it is squeezed. Progress of Wound: Marshal was seen by ID and they recommended completing oral antibiotics as ordered and did not add or feel it necessary to initiate IV antibiotics. He then failed to follow up for several weeks. He continues to be noncompliant with wearing his sirgical shoe but states that he has been using betadine to his toes. He presents in socks without bandages and wearing sneakers. He denies any drainage from his toes or pain or any changes. He has not followed up with Dr. Dukes as he states he was told he does not need to return if he is being treated here. He continues to receive dialysis Tuesdays, and Saturdays. Xray on 04/21/18, showed progression of osteomyelitis to all toes. He has been noncompliant with visits at the wound center and questionable compliance with podiatry visits as well. A repeat xray was ordered last week and he completed this but results are not available. Denies fever or chills. - Physical Exam Vital Signs Temp Pulse Resp BP 98.2 F 78 18 117/67 05/27/18 15:49 05/27/18 15:49 05/27/18 15:49 05/27/18 15:49 General: Alert, Oriented x3, Cooperative, No apparent distress HEENT: Atraumatic, Normocephalic Abdomen: Obese Extremities: Edema Skin: Ulcer/ Wound Wound Measurements and Assessment WC - Nurse 1 - General Ulcer Measurement Start: 05/20/18 16:14 Freq: Status: Active Protocol: Activity Type Activity Date Activity User E-Sign Co-Sign Detail Recorded Client Recorded Date Recorded By Document 05/27/18 15:49 [id number] 05/27/18 15:53 05/27/18 15:49 Wound Center Nurse 1 [Ulcer Assessment] #2 L 4th toe -Combined with other wound No -Current Size (cm) - Length 0.4 -Current Size (cm) - Width 0.7 -Current Size (cm) - Depth 0.1 -Total Square Cm 0.28 -Photo Taken No -Epithelialization None Present -Tunneling No -Undermining/Tunneling No -Circular Undermining No -Exudate Amt None Present (0 %) -Granulation Amt None Present (0 %) -Slough/Fibrin No -Necrosis Amt None Present (0 %) -Texture (Kalani-wound Skin Appearance) No Abnormality Assessed -Moisture (Kalani-wound Skin Appearance No Abnormality ) Assessed -Color (Kalani-wound Skin Appearance) No Abnormality Assessed -Temperature (Kalani-wound Skin No Abnormality Appearance) (Pt Warm) -Tenderness on Palpation (Kalani-wound No Skin Appearance) -Ulcer Cleansing Rinsed/ Irrigated with Saline -Foul Odor after Cleansing No -Anesthetic Used 4% Lidocaine Solution #1 L 3rd toe -Combined with other wound No -Current Size (cm) - Length 0.7 -Current Size (cm) - Width 1.3 -Current Size (cm) - Depth 0.1 -Total Square Cm 0.91 -Photo Taken No -Epithelialization None Present -Tunneling No -Undermining/Tunneling No -Circular Undermining No -Exudate Amt None Present (0 %) -Wound Margin Distinct, Outline Attached -Granulation Amt None Present (0 %) -Slough/Fibrin No -Necrosis Amt None Present (0 %) -Texture (Kalani-wound Skin Appearance) No Abnormality Assessed -Moisture (Kalani-wound Skin Appearance No Abnormality ) Assessed -Color (Kalani-wound Skin Appearance) No Abnormality Assessed -Temperature (Kalani-wound Skin No Abnormality Appearance) (Pt Warm) -Tenderness on Palpation (Kalani-wound No Skin Appearance) -Ulcer Cleansing Rinsed/ Irrigated with Saline -Foul Odor after Cleansing No -Anesthetic Used 4% Lidocaine Solution #3 left 3rd toe Superior @ 2oclock -Combined with other wound No -Current Size (cm) - Length 0.1 -Current Size (cm) - Width 0.1 -Current Size (cm) - Depth 0.1 -Total Square Cm 0.01 -Photo Taken No -Epithelialization None Present -Tunneling No -Undermining/Tunneling No -Circular Undermining No -Exudate Amt None Present (0 %) -Granulation Amt None Present (0 %) -Slough/Fibrin No -Necrosis Amt None Present (0 %) -Texture (Kalani-wound Skin Appearance) No Abnormality Assessed -Moisture (Kalani-wound Skin Appearance No Abnormality ) Assessed -Color (Kalani-wound Skin Appearance) No Abnormality Assessed -Temperature (Kalani-wound Skin No Abnormality Appearance) (Pt Warm) -Tenderness on Palpation (Kalani-wound No Skin Appearance) -Ulcer Cleansing Rinsed/ Irrigated with Saline -Foul Odor after Cleansing Yes, Due to Product Use WC - Nurse 2 - General Ulcer CM Notes Start: 05/20/18 16:14 Freq: Status: Active Protocol: Activity Type Activity Date Activity User E-Sign Co-Sign Detail Recorded Client Recorded Date Recorded By Document 05/27/18 16:08 [id number] 05/27/18 16:17 05/27/18 16:08 Wound Center Nurse 2 [Procedure/Treatment] #2 L 4th toe -Time 16:11 -Correct Patient Yes -Correct Side, Site, Position Yes -Correct Procedure Yes -Procedure Performed Yes -Type of Procedure Debridement -Clinical Debridement Subcutaneous -Post Debridement Size (cm) - Length 0.5 -Post Debridement Size (cm) - Width 0.2 -Post Debridement Size (cm) - Depth 0.7 -Total Square Cm 0.10 -Wound/Ulcer Outcome Not Healed -Ulcer Cleansing Not Cleansed -Foul Odor after Cleansing No -Bioengineered Tissue No -Bleeding Controlled with NA -Treatment Response Procedure Tolerated Well #1 L 3rd toe -Time 16:10 -Correct Patient Yes -Correct Side, Site, Position Yes -Correct Procedure Yes -Procedure Performed Yes -Type of Procedure Debridement -Clinical Debridement Subcutaneous -Post Debridement Size (cm) - Length 0.2 -Post Debridement Size (cm) - Width 0.3 -Post Debridement Size (cm) - Depth 0.7 -Total Square Cm 0.06 -Wound/Ulcer Outcome Not Healed -Ulcer Cleansing Not Cleansed -Foul Odor after Cleansing No -Bioengineered Tissue No -Bleeding Controlled with NA -Treatment Response Procedure Tolerated Well #3 left 3rd toe Superior @ 2oclock -Time 16:11 -Correct Patient Yes -Correct Side, Site, Position Yes -Correct Procedure Yes -Procedure Performed Yes -Type of Procedure Debridement -Clinical Debridement Subcutaneous -Post Debridement Size (cm) - Length 0.2 -Post Debridement Size (cm) - Width 0.3 -Post Debridement Size (cm) - Depth 0.6 -Total Square Cm 0.06 -Wound/Ulcer Outcome Not Healed -Ulcer Cleansing Not Cleansed -Foul Odor after Cleansing No -Bioengineered Tissue No -Bleeding Controlled with NA -Treatment Response Procedure Tolerated Well [See Physician Procedure note for Specifics] Pain Scale: 0-10 Numeric [Pain] -Is Patient Pain Free? Yes Psych/Mental Status: Normal Affect, Appropriate Debridement Note Post-Debridement Measurements/Treatment WC - Nurse 2 - General Ulcer CM Notes Start: 05/20/18 16:14 Freq: Status: Active Protocol: Activity Type Activity Date Activity User E-Sign Co-Sign Detail Recorded Client Recorded Date Recorded By Document 05/20/18 16:37 [id number] 05/20/18 16:50 Document 05/27/18 16:08 [id number] 05/27/18 16:17 05/20/18 05/27/18 16:37 16:08 Wound Center Nurse 2 #2 L 4th toe -Time 16:38 16:11 -Correct Patient Yes Yes -Correct Side, Site, Position Yes Yes -Correct Procedure Yes Yes -Procedure Performed Yes Yes -Type of Procedure Debridement Debridement -Clinical Debridement Subcutaneous Subcutaneous -Post Debridement Size (cm) - Length 0.5 0.5 -Post Debridement Size (cm) - Width 0.2 0.2 -Post Debridement Size (cm) - Depth 0.6 0.7 -Total Square Cm 0.10 0.10 -Wound/Ulcer Outcome Not Healed Not Healed -Ulcer Cleansing Not Cleansed Not Cleansed -Foul Odor after Cleansing No No -Bioengineered Tissue No No -Bleeding Controlled with NA NA -Treatment Response Procedure Procedure Tolerated Well Tolerated Well #1 L 3rd toe -Time 16:39 16:10 -Correct Patient Yes Yes -Correct Side, Site, Position Yes Yes -Correct Procedure Yes Yes -Procedure Performed Yes Yes -Type of Procedure Debridement Debridement -Clinical Debridement Subcutaneous Subcutaneous -Post Debridement Size (cm) - Length 0.1 0.2 -Post Debridement Size (cm) - Width 0.1 0.3 -Post Debridement Size (cm) - Depth 0.5 0.7 -Total Square Cm 0.01 0.06 -Wound/Ulcer Outcome Not Healed Not Healed -Ulcer Cleansing Not Cleansed Not Cleansed -Foul Odor after Cleansing No No -Bioengineered Tissue No No -Bleeding Controlled with NA NA -Treatment Response Procedure Procedure Tolerated Well Tolerated Well #3 left 3rd toe Superior @ 2oclock -Time 16:39 16:11 -Correct Patient Yes Yes -Correct Side, Site, Position Yes Yes -Correct Procedure Yes Yes -Procedure Performed Yes Yes -Type of Procedure Debridement Debridement -Clinical Debridement Subcutaneous Subcutaneous -Post Debridement Size (cm) - Length 0.2 0.2 -Post Debridement Size (cm) - Width 0.1 0.3 -Post Debridement Size (cm) - Depth 0.6 0.6 -Total Square Cm 0.02 0.06 -Wound/Ulcer Outcome Not Healed Not Healed -Ulcer Cleansing Not Cleansed Not Cleansed -Foul Odor after Cleansing No No -Bioengineered Tissue No No -Bleeding Controlled with NA NA -Treatment Response Procedure Procedure Tolerated Well Tolerated Well Pain Scale: 0-10 Numeric Is Patient Pain Free? Yes Yes Wound debrided: left 4th toe Laterality: Left Type of Debridement: Excisional debridement Anesthesia Used: 4% Lidocaine Solution Depth: Down to and including healthy tissue, in the subcutaneous layer, to bone Percentage of wound debrided: 100 Instrument Used: - - 1mm curette Tissue Removed: devitalized tissue, yellow slough Severity: Necrosis of Bone Amount of bleeding with debridement: None Patient tolerated procedure well - Additional Wound Wound debrided: left 3rd toe Laterality: Left Type of Debridement: Excisional debridement Anesthesia Used: 4% Lidocaine Solution Depth: Down to and including healthy tissue, in the subcutaneous layer, to bone Instrument Used: - - 1 mm curette Tissue Removed: devitalized tissue, yellow slough Severity: Necrosis of Bone Amount of bleeding with debridement: None Patient tolerated procedure: Patient tolerated procedure well - Additional Wound Wound debrided: left 3rd toe superior 2 o'clock Laterality: Left Type of Debridement: Excisional debridement Anesthesia Used: 4% Lidocaine Solution Depth: Down to and including healthy tissue, in the subcutaneous layer, to bone Percentage of wound debrided: 100 Instrument Used: - - 1 mm currete Tissue Removed: devitalized tissue, yellow slough Severity: Necrosis of Bone Amount of bleeding with debridement: None Patient tolerated procedure: Patient tolerated procedure well Assessment/Plan Active Problems (Last Updated 08/27/17 @ 15:05 by JOHNY Brown) Diabetic foot ulcer with osteomyelitis (Chronic) 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 Chronic osteomyelitis. PAD. DM type 2 w/ ESRD on dialysis, uncontrolled last A1C 05/05 8.8% Plan: Marshal was evaluated today and his wounds were debrided. The openings in his toes are still present and purulence can be expressed upon placing pressure on his toes. Orders given to evaluate him for possible treatment with hyperbaric oxygen at his last visit a month ago but weren't completed. Xrays of his foot and toes ordered to evaluate his osteomyelitis for further progression were done but results are unavailable. Worsened as of 04/21/18. Concerns for noncompliance with medical treatment are present. He was encouraged to wear surgical shoe to offload his toes and to dress his wounds daily with betadine and gauze even if he feels that they are healed. Advised against soaking his feet in Epsom salts. Records regarding his vascular evaluation peripheral arterial disease without significant venous disease. Will continue dressings with betadine and gauze presently. Advised consistent use of offloading surgical shoe that was previously prescribed for him which he has at home. Will evaluate and consider treatment with HBO given his chronic osteomyelitis and diabetic foot ulcers. Encouraged improved glucose control and increased protein intake to promote healing. Spoke with his daughter Lin who did not offer any additional information regarding what testing or the plan of care had been when he was discharged from the hospital at [facility] several months ago without IV antibiotic treatment. She is agreeable to a second opinion regarding his condition. Plan to call Dr. Dukes to see if there is any additional information regarding the testing and decision to not perform surgery or pursue treatment with IV antibiotics previously. F/U in 1 week.
--- NOTE | 2018-05-27 17:39 | PN.PCM_ITS ---
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 Current Visit: Yes Qualifiers: Diabetic foot ulcer location: toe Diabetes mellitus type: type 2 Qualified Code(s): E11.621 - Type 2 diabetes mellitus with foot ulcer; L97.524 - Non-pressure chronic ulcer of other part of left foot with necrosis of bone Code(s): E11.621 - Type 2 diabetes mellitus with foot ulcer; L97.524 - Non- pressure chronic ulcer of other part of left foot with necrosis of bone (3) T2DM (type 2 diabetes mellitus) Status: Chronic Current Visit: Yes Qualifiers: Diabetes mellitus fdc insulin use: with fdc use Diabetes mellitus complication status: with kidney complications Diabetes mellitus complication detail: with chronic kidney disease Chronic kidney disease stage: on chronic dialysis Qualified Code(s): E11.22 - Type 2 diabetes mellitus with diabetic chronic kidney disease; N18.6 - End stage renal disease; Z79.4 - intermediate accountant (current) use of insulin; Z99.2 - Dependence on renal dialysis Code(s): E11.9 - Type 2 diabetes mellitus without complications (4) Chronic kidney disease (CKD) stage G5/A1, glomerular filtration rate (GFR) less than or equal to 15 mL/min/1.73 square meter and albuminuria creatinine ratio less than 30 mg/g Status: Chronic Current Visit: Yes Code(s): N18.5 - Chronic kidney disease, stage 5 Type of Wound Date of Service: 05/27/18 Chief Complaint: nonhealing wounds to all toes History of Wound: Marshal is a 77 yo male that has been referred to the wound center for evaluation and treatment for nonhealing wounds of his 3rd and 4th toes by Dr. Dukes, his net web developer. He is a poor historian. He has had these wounds for several months, review of his records show that he was diagnosed with osteomyelitis possibly in December. He has been evaluated by vascular surgeon at [facility] regarding possible amputation of his affected toes and they have felt that he is not a candidate for surgery due to poor circulation and are concerned that he would not heal after surgery. His most recent xray was done on 03/02/18 and showed continued osteomyelitis with loss of bone to distal phalanx of both his 3rd and 4th toes. He has been on doxycycline for several weeks for treatment of osteomyelitis but has not seen ID yet. He is currently on doxycycline BID and recent wound culture showed staph epidermidis. His wounds have been being dressed with betadine and gauze dressings. He was instructed to use a surgical shoe but has not been doing so consistently. His most recent A1C was 8.5% on 12/22/17. He is on dialysis T, , Sat. for ESRD. Hgb 03/02/18 was 11.5. ESR 96, CRP 6.3. He denies any pain, fever or chills. He does note purulent drainage from his third toe when it is squeezed. Progress of Wound: Marshal was seen by ID and they recommended completing oral antibiotics as ordered and did not add or feel it necessary to initiate IV antibiotics. He then failed to follow up for several weeks. He continues to be noncompliant with wearing his sirgical shoe but states that he has been using betadine to his toes. He presents in socks without bandages and wearing sneakers. He denies any drainage from his toes or pain or any changes. He has not followed up with Dr. Dukes as he states he was told he does not need to return if he is being treated here. He continues to receive dialysis Tuesdays, and Saturdays. Xray on 04/21/18, showed progression of osteomyelitis to all toes. He has been noncompliant with visits at the wound center and questionable compliance with podiatry visits as well. A repeat xray was ordered last week and he completed this but results are not available. Denies fever or chills. - Physical Exam Vital Signs Temp Pulse Resp BP 98.2 F 78 18 117/67 05/27/18 15:49 05/27/18 15:49 05/27/18 15:49 05/27/18 15:49 General: Alert, Oriented x3, Cooperative, No apparent distress HEENT: Atraumatic, Normocephalic Abdomen: Obese Extremities: Edema Skin: Ulcer/ Wound Wound Measurements and Assessment WC - Nurse 1 - General Ulcer Measurement Start: 05/20/18 16:14 Freq: Status: Active Protocol: Activity Type Activity Date Activity User E-Sign Co-Sign Detail Recorded Client Recorded Date Recorded By Document 05/27/18 15:49 [id number] 05/27/18 15:53 05/27/18 15:49 Wound Center Nurse 1 [Ulcer Assessment] #2 L 4th toe -Combined with other wound No -Current Size (cm) - Length 0.4 -Current Size (cm) - Width 0.7 -Current Size (cm) - Depth 0.1 -Total Square Cm 0.28 -Photo Taken No -Epithelialization None Present -Tunneling No -Undermining/Tunneling No -Circular Undermining No -Exudate Amt None Present (0 %) -Granulation Amt None Present (0 %) -Slough/Fibrin No -Necrosis Amt None Present (0 %) -Texture (Kalani-wound Skin Appearance) No Abnormality Assessed -Moisture (Kalani-wound Skin Appearance No Abnormality ) Assessed -Color (Kalani-wound Skin Appearance) No Abnormality Assessed -Temperature (Kalani-wound Skin No Abnormality Appearance) (Pt Warm) -Tenderness on Palpation (Kalani-wound No Skin Appearance) -Ulcer Cleansing Rinsed/ Irrigated with Saline -Foul Odor after Cleansing No -Anesthetic Used 4% Lidocaine Solution #1 L 3rd toe -Combined with other wound No -Current Size (cm) - Length 0.7 -Current Size (cm) - Width 1.3 -Current Size (cm) - Depth 0.1 -Total Square Cm 0.91 -Photo Taken No -Epithelialization None Present -Tunneling No -Undermining/Tunneling No -Circular Undermining No -Exudate Amt None Present (0 %) -Wound Margin Distinct, Outline Attached -Granulation Amt None Present (0 %) -Slough/Fibrin No -Necrosis Amt None Present (0 %) -Texture (Kalani-wound Skin Appearance) No Abnormality Assessed -Moisture (Kalani-wound Skin Appearance No Abnormality ) Assessed -Color (Kalani-wound Skin Appearance) No Abnormality Assessed -Temperature (Kalani-wound Skin No Abnormality Appearance) (Pt Warm) -Tenderness on Palpation (Kalani-wound No Skin Appearance) -Ulcer Cleansing Rinsed/ Irrigated with Saline -Foul Odor after Cleansing No -Anesthetic Used 4% Lidocaine Solution #3 left 3rd toe Superior @ 2oclock -Combined with other wound No -Current Size (cm) - Length 0.1 -Current Size (cm) - Width 0.1 -Current Size (cm) - Depth 0.1 -Total Square Cm 0.01 -Photo Taken No -Epithelialization None Present -Tunneling No -Undermining/Tunneling No -Circular Undermining No -Exudate Amt None Present (0 %) -Granulation Amt None Present (0 %) -Slough/Fibrin No -Necrosis Amt None Present (0 %) -Texture (Kalani-wound Skin Appearance) No Abnormality Assessed -Moisture (Kalani-wound Skin Appearance No Abnormality ) Assessed -Color (Kalani-wound Skin Appearance) No Abnormality Assessed -Temperature (Kalani-wound Skin No Abnormality Appearance) (Pt Warm) -Tenderness on Palpation (Kalani-wound No Skin Appearance) -Ulcer Cleansing Rinsed/ Irrigated with Saline -Foul Odor after Cleansing Yes, Due to Product Use WC - Nurse 2 - General Ulcer CM Notes Start: 05/20/18 16:14 Freq: Status: Active Protocol: Activity Type Activity Date Activity User E-Sign Co-Sign Detail Recorded Client Recorded Date Recorded By Document 05/27/18 16:08 [id number] 05/27/18 16:17 05/27/18 16:08 Wound Center Nurse 2 [Procedure/Treatment] #2 L 4th toe -Time 16:11 -Correct Patient Yes -Correct Side, Site, Position Yes -Correct Procedure Yes -Procedure Performed Yes -Type of Procedure Debridement -Clinical Debridement Subcutaneous -Post Debridement Size (cm) - Length 0.5 -Post Debridement Size (cm) - Width 0.2 -Post Debridement Size (cm) - Depth 0.7 -Total Square Cm 0.10 -Wound/Ulcer Outcome Not Healed -Ulcer Cleansing Not Cleansed -Foul Odor after Cleansing No -Bioengineered Tissue No -Bleeding Controlled with NA -Treatment Response Procedure Tolerated Well #1 L 3rd toe -Time 16:10 -Correct Patient Yes -Correct Side, Site, Position Yes -Correct Procedure Yes -Procedure Performed Yes -Type of Procedure Debridement -Clinical Debridement Subcutaneous -Post Debridement Size (cm) - Length 0.2 -Post Debridement Size (cm) - Width 0.3 -Post Debridement Size (cm) - Depth 0.7 -Total Square Cm 0.06 -Wound/Ulcer Outcome Not Healed -Ulcer Cleansing Not Cleansed -Foul Odor after Cleansing No -Bioengineered Tissue No -Bleeding Controlled with NA -Treatment Response Procedure Tolerated Well #3 left 3rd toe Superior @ 2oclock -Time 16:11 -Correct Patient Yes -Correct Side, Site, Position Yes -Correct Procedure Yes -Procedure Performed Yes -Type of Procedure Debridement -Clinical Debridement Subcutaneous -Post Debridement Size (cm) - Length 0.2 -Post Debridement Size (cm) - Width 0.3 -Post Debridement Size (cm) - Depth 0.6 -Total Square Cm 0.06 -Wound/Ulcer Outcome Not Healed -Ulcer Cleansing Not Cleansed -Foul Odor after Cleansing No -Bioengineered Tissue No -Bleeding Controlled with NA -Treatment Response Procedure Tolerated Well [See Physician Procedure note for Specifics] Pain Scale: 0-10 Numeric [Pain] -Is Patient Pain Free? Yes Psych/Mental Status: Normal Affect, Appropriate Debridement Note Post-Debridement Measurements/Treatment WC - Nurse 2 - General Ulcer CM Notes Start: 05/20/18 16:14 Freq: Status: Active Protocol: Activity Type Activity Date Activity User E-Sign Co-Sign Detail Recorded Client Recorded Date Recorded By Document 05/20/18 16:37 [id number] 05/20/18 16:50 Document 05/27/18 16:08 [id number] 05/27/18 16:17 05/20/18 05/27/18 16:37 16:08 Wound Center Nurse 2 #2 L 4th toe -Time 16:38 16:11 -Correct Patient Yes Yes -Correct Side, Site, Position Yes Yes -Correct Procedure Yes Yes -Procedure Performed Yes Yes -Type of Procedure Debridement Debridement -Clinical Debridement Subcutaneous Subcutaneous -Post Debridement Size (cm) - Length 0.5 0.5 -Post Debridement Size (cm) - Width 0.2 0.2 -Post Debridement Size (cm) - Depth 0.6 0.7 -Total Square Cm 0.10 0.10 -Wound/Ulcer Outcome Not Healed Not Healed -Ulcer Cleansing Not Cleansed Not Cleansed -Foul Odor after Cleansing No No -Bioengineered Tissue No No -Bleeding Controlled with NA NA -Treatment Response Procedure Procedure Tolerated Well Tolerated Well #1 L 3rd toe -Time 16:39 16:10 -Correct Patient Yes Yes -Correct Side, Site, Position Yes Yes -Correct Procedure Yes Yes -Procedure Performed Yes Yes -Type of Procedure Debridement Debridement -Clinical Debridement Subcutaneous Subcutaneous -Post Debridement Size (cm) - Length 0.1 0.2 -Post Debridement Size (cm) - Width 0.1 0.3 -Post Debridement Size (cm) - Depth 0.5 0.7 -Total Square Cm 0.01 0.06 -Wound/Ulcer Outcome Not Healed Not Healed -Ulcer Cleansing Not Cleansed Not Cleansed -Foul Odor after Cleansing No No -Bioengineered Tissue No No -Bleeding Controlled with NA NA -Treatment Response Procedure Procedure Tolerated Well Tolerated Well #3 left 3rd toe Superior @ 2oclock -Time 16:39 16:11 -Correct Patient Yes Yes -Correct Side, Site, Position Yes Yes -Correct Procedure Yes Yes -Procedure Performed Yes Yes -Type of Procedure Debridement Debridement -Clinical Debridement Subcutaneous Subcutaneous -Post Debridement Size (cm) - Length 0.2 0.2 -Post Debridement Size (cm) - Width 0.1 0.3 -Post Debridement Size (cm) - Depth 0.6 0.6 -Total Square Cm 0.02 0.06 -Wound/Ulcer Outcome Not Healed Not Healed -Ulcer Cleansing Not Cleansed Not Cleansed -Foul Odor after Cleansing No No -Bioengineered Tissue No No -Bleeding Controlled with NA NA -Treatment Response Procedure Procedure Tolerated Well Tolerated Well Pain Scale: 0-10 Numeric Is Patient Pain Free? Yes Yes Wound debrided: left 4th toe Laterality: Left Type of Debridement: Excisional debridement Anesthesia Used: 4% Lidocaine Solution Depth: Down to and including healthy tissue, in the subcutaneous layer, to bone Percentage of wound debrided: 100 Instrument Used: - - 1mm curette Tissue Removed: devitalized tissue, yellow slough Severity: Necrosis of Bone Amount of bleeding with debridement: None Patient tolerated procedure well - Additional Wound Wound debrided: left 3rd toe Laterality: Left Type of Debridement: Excisional debridement Anesthesia Used: 4% Lidocaine Solution Depth: Down to and including healthy tissue, in the subcutaneous layer, to bone Instrument Used: - - 1 mm curette Tissue Removed: devitalized tissue, yellow slough Severity: Necrosis of Bone Amount of bleeding with debridement: None Patient tolerated procedure: Patient tolerated procedure well - Additional Wound Wound debrided: left 3rd toe superior 2 o'clock Laterality: Left Type of Debridement: Excisional debridement Anesthesia Used: 4% Lidocaine Solution Depth: Down to and including healthy tissue, in the subcutaneous layer, to bone Percentage of wound debrided: 100 Instrument Used: - - 1 mm currete Tissue Removed: devitalized tissue, yellow slough Severity: Necrosis of Bone Amount of bleeding with debridement: None Patient tolerated procedure: Patient tolerated procedure well Assessment/Plan Active Problems (Last Updated 08/27/17 @ 15:05 by JOHNY Brown) Diabetic foot ulcer with osteomyelitis (Chronic) 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 Chronic osteomyelitis. PAD. DM type 2 w/ ESRD on dialysis, uncontrolled last A1C 05/05 8.8% Plan: Marshal was evaluated today and his wounds were debrided. The openings in his toes are still present and purulence can be expressed upon placing pressure on his toes. Orders given to evaluate him for possible treatment with hyperbaric oxygen at his last visit a month ago but weren't completed. Xrays of his foot and toes ordered to evaluate his osteomyelitis for further progression were done but results are unavailable. Worsened as of 04/21/18. Concerns for noncompliance with medical treatment are present. He was encouraged to wear surgical shoe to offload his toes and to dress his wounds daily with betadine and gauze even if he feels that they are healed. Advised against soaking his feet in Epsom salts. Records regarding his vascular evaluation peripheral arterial disease without significant venous disease. Will continue dressings with betadine and gauze presently. Advised consistent use of offloading surgical shoe that was previously prescribed for him which he has at home. Will evaluate and consider treatment with HBO given his chronic osteomyelitis and diabetic foot ulcers. Encouraged improved glucose control and increased protein intake to promote healing. Spoke with his daughter Lin who did not offer any additional information regarding what testing or the plan of care had been when he was discharged from the hospital at [facility] several months ago without IV antibiotic treatment. She is agreeable to a second opinion regarding his condition. Plan to call Dr. Dukes to see if there is any additional information regarding the testing and decision to not perform surgery or pursue treatment with IV antibiotics previously. F/U in 1 week.
[2018-06-03 14:26] VITALS: BP 133/53; PULSE 83; RESP 16; TEMP 36.1
--- NOTE | 2018-06-03 17:23 | PCM.WC.PN ---
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 Current Visit: Yes Qualifiers: Diabetic foot ulcer location: toe Diabetes mellitus type: type 2 Qualified Code(s): E11.621 - Type 2 diabetes mellitus with foot ulcer; L97.524 - Non-pressure chronic ulcer of other part of left foot with necrosis of bone Code(s): E11.621 - Type 2 diabetes mellitus with foot ulcer; L97.524 - Non-pressure chronic ulcer of other part of left foot with necrosis of bone (3) T2DM (type 2 diabetes mellitus) Status: Chronic Current Visit: Yes Qualifiers: Diabetes mellitus watermaster insulin use: with [facility] use Diabetes mellitus complication status: with kidney complications Diabetes mellitus complication detail: with chronic kidney disease Chronic kidney disease stage: on chronic dialysis Qualified Code(s): E11.22 - Type 2 diabetes mellitus with diabetic chronic kidney disease; N18.6 - End stage renal disease; Z79.4 - terminologist (current) use of insulin; Z99.2 - Dependence on renal dialysis Code(s): E11.9 - Type 2 diabetes mellitus without complications (4) Chronic kidney disease (CKD) stage G5/A1, glomerular filtration rate (GFR) less than or equal to 15 mL/min/1.73 square meter and albuminuria creatinine ratio less than 30 mg/g Status: Chronic Current Visit: Yes Code(s): N18.5 - Chronic kidney disease, stage 5 (5) Chronic osteomyelitis of left foot Status: Chronic Current Visit: Yes Code(s): M86.672 - Other chronic osteomyelitis, left ankle and foot Type of Wound Date of Service: 06/03/18 Chief Complaint: nonhealing wounds to all toes History of Wound: Marshal is a 77 yo male that has been referred to the wound center for evaluation and treatment for nonhealing wounds of his 3rd and 4th toes by Dr. Dukes, his director medical economics. He is a poor historian. He has had these wounds for several months, review of his records show that he was diagnosed with osteomyelitis possibly in December. He has been evaluated by vascular surgeon at [facility] regarding possible amputation of his affected toes and they have felt that he is not a candidate for surgery due to poor circulation and are concerned that he would not heal after surgery. His most recent xray was done on 03/02/18 and showed continued osteomyelitis with loss of bone to distal phalanx of both his 3rd and 4th toes. He has been on doxycycline for several weeks for treatment of osteomyelitis but has not seen ID yet. He is currently on doxycycline BID and recent wound culture showed staph epidermidis. His wounds have been being dressed with betadine and gauze dressings. He was instructed to use a surgical shoe but has not been doing so consistently. His most recent A1C was 8.5% on 12/22/17. He is on dialysis , , Wed. for ESRD. Hgb 03/02/18 was 11.5. ESR 96, CRP 6.3. He denies any pain, fever or chills. Marshal was seen by ID and they recommended completing oral antibiotics as ordered and did not add or feel it necessary to initiate IV antibiotics. He then failed to follow up for several weeks. He continues to be noncompliant with wearing his surgical shoe but states that he has been using betadine to his toes. He presents in socks without bandages and wearing sneakers. Progress of Wound: He denies any drainage from his toes or pain or any changes. He has not followed up with Dr. Dukes as he states he was told he does not need to return if he is being treated here. He continues to receive dialysis Tuesdays, and Saturdays. Xray on 05/27/18, showed progression of osteomyelitis to all toes. He has been noncompliant with visits at the wound center and questionable compliance with podiatry visits as well. Spoke with his daughter last week and it is still unclear as to why surgery was not recommended or revascularization not recommended. Denies fever or chills. Called Dr. Dukes but was unable to connect with him. We have both left messages for one another. - Physical Exam Vital Signs Temp Pulse Resp BP 96.9 F L 83 16 133/53 H 06/03/18 14:26 06/03/18 14:26 06/03/18 14:26 06/03/18 14:26 General: Alert, Oriented x3, Cooperative, No apparent distress HEENT: Atraumatic, Normocephalic Oral: Moist Mucosa Abdomen: Obese Skin: Ulcer/ Wound Wound Measurements and Assessment WC - Nurse 1 - General Ulcer Measurement Start: 05/20/18 16:14 Freq: Status: Active Protocol: Activity Type Activity Date Activity User E-Sign Co-Sign Detail Recorded Client Recorded Date Recorded By Document 06/03/18 14:26 AN [id number] 06/03/18 14:33 AN 06/03/18 14:26 Wound Center Nurse 1 [Ulcer Assessment] #2 L 4th toe -Current Size (cm) - Length 0.1 -Current Size (cm) - Width 0.1 -Current Size (cm) - Depth 0.1 -Total Square Cm 0.01 -Date of Last Picture (Recall this 06/03/18 field) -Photo Taken Yes -Epithelialization None Present -Exudate Amt Medium (34-66%) -Exudate Type Purulent -Wound Margin Thickened -Granulation Amt None Present (0 %) -Necrosis Amt Large (67-100%) -Necrotic Tissue Type Eschar -Structure Exposed N/A -Texture (Kalani-wound Skin Appearance) No Abnormality -Moisture (Kalani-wound Skin Appearance No Abnormality ) -Color (Kalani-wound Skin Appearance) No Abnormality Assessed -Temperature (Kalani-wound Skin No Abnormality Appearance) (Pt Warm) -Tenderness on Palpation (Kalani-wound No Skin Appearance) -Ulcer Cleansing Rinsed/ Irrigated with Saline -Foul Odor after Cleansing No -Anesthetic Used 4% Lidocaine Solution #1 L 3rd toe -Current Size (cm) - Length 0.1 -Current Size (cm) - Width 0.1 -Current Size (cm) - Depth 0.1 -Total Square Cm 0.01 -Date of Last Picture (Recall this 06/03/18 field) -Photo Taken Yes -Undermining/Tunneling No -Circular Undermining No -Exudate Amt None Present (0 %) -Wound Margin Thickened -Granulation Amt None Present (0 %) -Necrosis Amt Large (67-100%) -Necrotic Tissue Type Eschar -Texture (Kalani-wound Skin Appearance) No Abnormality Assessed -Moisture (Kalani-wound Skin Appearance No Abnormality ) Assessed -Color (Kalani-wound Skin Appearance) No Abnormality -Temperature (Kalani-wound Skin No Abnormality Appearance) (Pt Warm) -Tenderness on Palpation (Kalani-wound No Skin Appearance) -Ulcer Cleansing Rinsed/ Irrigated with Saline -Foul Odor after Cleansing No -Anesthetic Used 4% Lidocaine Solution WC - Nurse 2 - General Ulcer CM Notes Start: 05/20/18 16:14 Freq: Status: Active Protocol: Activity Type Activity Date Activity User E-Sign Co-Sign Detail Recorded Client Recorded Date Recorded By Document 06/03/18 15:01 [id number] 06/03/18 15:11 06/03/18 15:01 Wound Center Nurse 2 [Procedure/Treatment] #2 L 4th toe -Time 15:01 -Correct Patient Yes -Correct Side, Site, Position Yes -Correct Procedure Yes -Procedure Performed Yes -Type of Procedure Debridement -Clinical Debridement Subcutaneous -Post Debridement Size (cm) - Length 0.5 -Post Debridement Size (cm) - Width 0.2 -Post Debridement Size (cm) - Depth 0.8 -Total Square Cm 0.10 -Wound/Ulcer Outcome Not Healed -Ulcer Cleansing Not Cleansed -Foul Odor after Cleansing No -Bioengineered Tissue No -Bleeding Controlled with NA -Treatment Response Procedure Tolerated Well #1 L 3rd toe -Time 15:01 -Correct Patient Yes -Correct Side, Site, Position Yes -Correct Procedure Yes -Procedure Performed Yes -Type of Procedure Debridement -Clinical Debridement Subcutaneous -Post Debridement Size (cm) - Length 0.2 -Post Debridement Size (cm) - Width 0.5 -Post Debridement Size (cm) - Depth 0.8 -Total Square Cm 0.10 -Wound/Ulcer Outcome Not Healed -Ulcer Cleansing Not Cleansed -Foul Odor after Cleansing No -Bleeding Controlled with NA -Treatment Response Procedure Tolerated Well #3 left 3rd toe Superior @ 2oclock -Time 15:01 -Correct Patient Yes -Correct Side, Site, Position Yes -Correct Procedure Yes -Procedure Performed Yes -Type of Procedure Debridement -Clinical Debridement Subcutaneous -Wound/Ulcer Outcome Not Healed -Ulcer Cleansing Not Cleansed -Foul Odor after Cleansing No -Bioengineered Tissue No -Bleeding Controlled with NA -Treatment Response Procedure Tolerated Well [See Physician Procedure note for Specifics] Pain Scale: 0-10 Numeric [Pain] -Is Patient Pain Free? Yes Psych/Mental Status: Normal Affect, Appropriate Debridement Note Post-Debridement Measurements/Treatment WC - Nurse 2 - General Ulcer CM Notes Start: 05/20/18 16:14 Freq: Status: Active Protocol: Activity Type Activity Date Activity User E-Sign Co-Sign Detail Recorded Client Recorded Date Recorded By Document 05/20/18 16:37 [id number] 05/20/18 16:50 CS Document 05/27/18 16:08 [id number] 05/27/18 16:17 CS Document 06/03/18 15:01 [id number] 06/03/18 15:11 05/20/18 05/27/18 06/03/18 16:37 16:08 15:01 Wound Center Nurse 2 #2 L 4th toe -Time 16:38 16:11 15:01 -Correct Patient Yes Yes Yes -Correct Side, Site, Position Yes Yes Yes -Correct Procedure Yes Yes Yes -Procedure Performed Yes Yes Yes -Type of Procedure Debridement Debridement Debridement -Clinical Debridement Subcutaneous Subcutaneous Subcutaneous -Post Debridement Size (cm) - Length 0.5 0.5 0.5 -Post Debridement Size (cm) - Width 0.2 0.2 0.2 -Post Debridement Size (cm) - Depth 0.6 0.7 0.8 -Total Square Cm 0.10 0.10 0.10 -Wound/Ulcer Outcome Not Healed Not Healed Not Healed -Ulcer Cleansing Not Cleansed Not Cleansed Not Cleansed -Foul Odor after Cleansing No No No -Bioengineered Tissue No No No -Bleeding Controlled with NA NA NA -Treatment Response Procedure Procedure Procedure Tolerated Well Tolerated Well Tolerated Well #1 L 3rd toe -Time 16:39 16:10 15:01 -Correct Patient Yes Yes Yes -Correct Side, Site, Position Yes Yes Yes -Correct Procedure Yes Yes Yes -Procedure Performed Yes Yes Yes -Type of Procedure Debridement Debridement Debridement -Clinical Debridement Subcutaneous Subcutaneous Subcutaneous -Post Debridement Size (cm) - Length 0.1 0.2 0.2 -Post Debridement Size (cm) - Width 0.1 0.3 0.5 -Post Debridement Size (cm) - Depth 0.5 0.7 0.8 -Total Square Cm 0.01 0.06 0.10 -Wound/Ulcer Outcome Not Healed Not Healed Not Healed -Ulcer Cleansing Not Cleansed Not Cleansed Not Cleansed -Foul Odor after Cleansing No No No -Bioengineered Tissue No No -Bleeding Controlled with NA NA NA -Treatment Response Procedure Procedure Procedure Tolerated Well Tolerated Well Tolerated Well #3 left 3rd toe Superior @ 2oclock -Time 16:39 16:11 15:01 -Correct Patient Yes Yes Yes -Correct Side, Site, Position Yes Yes Yes -Correct Procedure Yes Yes Yes -Procedure Performed Yes Yes Yes -Type of Procedure Debridement Debridement Debridement -Clinical Debridement Subcutaneous Subcutaneous Subcutaneous -Post Debridement Size (cm) - Length 0.2 0.2 -Post Debridement Size (cm) - Width 0.1 0.3 -Post Debridement Size (cm) - Depth 0.6 0.6 -Total Square Cm 0.02 0.06 -Wound/Ulcer Outcome Not Healed Not Healed Not Healed -Ulcer Cleansing Not Cleansed Not Cleansed Not Cleansed -Foul Odor after Cleansing No No No -Bioengineered Tissue No No No -Bleeding Controlled with NA NA NA -Treatment Response Procedure Procedure Procedure Tolerated Well Tolerated Well Tolerated Well Pain Scale: 0-10 Numeric Is Patient Pain Free? Yes Yes Yes Wound debrided: left 4th toe Laterality: Left Type of Debridement: Excisional debridement Anesthesia Used: 4% Lidocaine Solution Depth: Down to and including healthy tissue, in the subcutaneous layer, to bone Percentage of wound debrided: 100 Instrument Used: - - probe Tissue Removed: devitalized tissue Severity: Necrosis of Bone Amount of bleeding with debridement: Mild Bleeding Controlled with: Compression and gauze Patient tolerated procedure well - Additional Wound Wound debrided: left 3rd toe Laterality: Left Type of Debridement: Excisional debridement Anesthesia Used: 4% Lidocaine Solution Depth: Down to and including healthy tissue, in the subcutaneous layer, to bone Percentage of wound debrided: 100 Instrument Used: - - 1 mm curette Tissue Removed: devitalized tissue Severity: Necrosis of Bone Amount of bleeding with debridement: Mild Bleeding Controlled with: Compression and gauze Patient tolerated procedure: Patient tolerated procedure well Assessment/Plan Active Problems (Last Updated 08/27/17 @ 15:05 by JOHNY Brown) Diabetic foot ulcer with osteomyelitis (Chronic) 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 Chronic osteomyelitis. PAD. DM type 2 w/ ESRD on dialysis, uncontrolled last A1C 05/05 8.8% Plan: Marshal was evaluated today and his wounds were debrided. He is taking doxycycline and wound culture was positive for anaerobic cocci. Jose called in but he has not started this yet. The openings in his toes are still present and purulence can be expressed upon placing pressure on his toes. Orders given to evaluate him for possible treatment with hyperbaric oxygen at his last visit a month ago but weren't completed. Xrays of his foot and toes ordered to evaluate his osteomyelitis for further progression were done and it is relatively unchanged. Concerns for noncompliance with medical treatment are present. He was encouraged to wear surgical shoe to offload his toes and to dress his wounds daily with betadine and gauze even if he feels that they are healed. Advised against soaking his feet in Epsom salts. Records regarding his vascular evaluation peripheral arterial disease without significant venous disease. Will continue dressings with betadine and gauze presently. Advised consistent use of offloading surgical shoe that was previously prescribed for him which he has at home. Will evaluate and consider treatment with HBO given his chronic osteomyelitis and diabetic foot ulcers. Encouraged improved glucose control and increased protein intake to promote healing. Spoke with his daughter Lin who did not offer any additional information regarding what testing or the plan of care had been when he was discharged from the hospital at [facility] several months ago without IV antibiotic treatment. She is agreeable to a second opinion regarding his condition. Plan to call Dr. Dukes to see if there is any additional information regarding the testing and decision to not perform surgery or pursue treatment with IV antibiotics previously. F/U in 2 weeks.
--- NOTE | 2018-06-03 17:28 | PN.PCM_ITS ---
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 Current Visit: Yes Qualifiers: Diabetic foot ulcer location: toe Diabetes mellitus type: type 2 Qualified Code(s): E11.621 - Type 2 diabetes mellitus with foot ulcer; L97.524 - Non-pressure chronic ulcer of other part of left foot with necrosis of bone Code(s): E11.621 - Type 2 diabetes mellitus with foot ulcer; L97.524 - Non- pressure chronic ulcer of other part of left foot with necrosis of bone (3) T2DM (type 2 diabetes mellitus) Status: Chronic Current Visit: Yes Qualifiers: Diabetes mellitus snf insulin use: with snf use Diabetes mellitus complication status: with kidney complications Diabetes mellitus complication detail: with chronic kidney disease Chronic kidney disease stage: on chronic dialysis Qualified Code(s): E11.22 - Type 2 diabetes mellitus with diabetic chronic kidney disease; N18.6 - End stage renal disease; 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; Z99.2 - Dependence on renal dialysis Code(s): E11.9 - Type 2 diabetes mellitus without complications (4) Chronic kidney disease (CKD) stage G5/A1, glomerular filtration rate (GFR) less than or equal to 15 mL/min/1.73 square meter and albuminuria creatinine ratio less than 30 mg/g Status: Chronic Current Visit: Yes Code(s): N18.5 - Chronic kidney disease, stage 5 (5) Chronic osteomyelitis of left foot Status: Chronic Current Visit: Yes Code(s): M86.672 - Other chronic osteomyelitis, left ankle and foot Type of Wound Date of Service: 06/03/18 Chief Complaint: nonhealing wounds to all toes History of Wound: Marshal is a 77 yo male that has been referred to the wound center for evaluation and treatment for nonhealing wounds of his 3rd and 4th toes by 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 He is a poor historian. He has had these wounds for several months, review of his records show that he was diagnosed with osteomyelitis possibly in December. He has been evaluated by vascular surgeon at [facility] regarding possible amputation of his affected toes and they have felt that he is not a candidate for surgery due to poor circulation and are concerned that he would not heal after surgery. His most recent xray was done on 03/02/18 and showed continued osteomyelitis with loss of bone to distal phalanx of both his 3rd and 4th toes. He has been on doxycycline for several weeks for treatment of osteomyelitis but has not seen ID yet. He is currently on doxycycline BID and recent wound culture showed staph epidermidis. His wounds have been being dressed with betadine and gauze dressings. He was instructed to use a surgical shoe but has not been doing so consistently. His most recent A1C was 8.5% on 12/22/17. He is on dialysis , , Wed. for ESRD. Hgb 03/02/18 was 11.5. ESR 96, CRP 6.3. He denies any pain, fever or chills. Marshal was seen by ID and they recommended completing oral antibiotics as ordered and did not add or feel it necessary to initiate IV antibiotics. He then failed to follow up for several weeks. He continues to be noncompliant with wearing his surgical shoe but states that he has been using betadine to his toes. He presents in socks without bandages and wearing sneakers. Progress of Wound: He denies any drainage from his toes or pain or any changes. He has not followed up with Dr. Dukes as he states he was told he does not need to return if he is being treated here. He continues to receive dialysis Tuesdays, and Saturdays. Xray on 05/27/18, showed progression of osteomyelitis to all toes. He has been noncompliant with visits at the wound center and questionable compliance with podiatry visits as well. Spoke with his daughter last week and it is still unclear as to why surgery was not recommended or revascularization not recommended. Denies fever or chills. Called Dr. Dukes but was unable to connect with him. We have both left messages for one another. - Physical Exam Vital Signs Temp Pulse Resp BP 96.9 F L 83 16 133/53 H 06/03/18 14:26 06/03/18 14:26 06/03/18 14:26 06/03/18 14:26 General: Alert, Oriented x3, Cooperative, No apparent distress HEENT: Atraumatic, Normocephalic Oral: Moist Mucosa Abdomen: Obese Skin: Ulcer/ Wound Wound Measurements and Assessment WC - Nurse 1 - General Ulcer Measurement Start: 05/20/18 16:14 Freq: Status: Active Protocol: Activity Type Activity Date Activity User E-Sign Co-Sign Detail Recorded Client Recorded Date Recorded By Document 06/03/18 14:26 AN [id number] 06/03/18 14:33 AN 06/03/18 14:26 Wound Center Nurse 1 [Ulcer Assessment] #2 L 4th toe -Current Size (cm) - Length 0.1 -Current Size (cm) - Width 0.1 -Current Size (cm) - Depth 0.1 -Total Square Cm 0.01 -Date of Last Picture (Recall this 06/03/18 field) -Photo Taken Yes -Epithelialization None Present -Exudate Amt Medium (34-66%) -Exudate Type Purulent -Wound Margin Thickened -Granulation Amt None Present (0 %) -Necrosis Amt Large (67-100%) -Necrotic Tissue Type Eschar -Structure Exposed N/A -Texture (Kalani-wound Skin Appearance) No Abnormality -Moisture (Kalani-wound Skin Appearance No Abnormality ) -Color (Kalani-wound Skin Appearance) No Abnormality Assessed -Temperature (Kalani-wound Skin No Abnormality Appearance) (Pt Warm) -Tenderness on Palpation (Kalani-wound No Skin Appearance) -Ulcer Cleansing Rinsed/ Irrigated with Saline -Foul Odor after Cleansing No -Anesthetic Used 4% Lidocaine Solution #1 L 3rd toe -Current Size (cm) - Length 0.1 -Current Size (cm) - Width 0.1 -Current Size (cm) - Depth 0.1 -Total Square Cm 0.01 -Date of Last Picture (Recall this 06/03/18 field) -Photo Taken Yes -Undermining/Tunneling No -Circular Undermining No -Exudate Amt None Present (0 %) -Wound Margin Thickened -Granulation Amt None Present (0 %) -Necrosis Amt Large (67-100%) -Necrotic Tissue Type Eschar -Texture (Kalani-wound Skin Appearance) No Abnormality Assessed -Moisture (Kalani-wound Skin Appearance No Abnormality ) Assessed -Color (Kalani-wound Skin Appearance) No Abnormality -Temperature (Kalani-wound Skin No Abnormality Appearance) (Pt Warm) -Tenderness on Palpation (Kalani-wound No Skin Appearance) -Ulcer Cleansing Rinsed/ Irrigated with Saline -Foul Odor after Cleansing No -Anesthetic Used 4% Lidocaine Solution WC - Nurse 2 - General Ulcer CM Notes Start: 05/20/18 16:14 Freq: Status: Active Protocol: Activity Type Activity Date Activity User E-Sign Co-Sign Detail Recorded Client Recorded Date Recorded By Document 06/03/18 15:01 [id number] 06/03/18 15:11 06/03/18 15:01 Wound Center Nurse 2 [Procedure/Treatment] #2 L 4th toe -Time 15:01 -Correct Patient Yes -Correct Side, Site, Position Yes -Correct Procedure Yes -Procedure Performed Yes -Type of Procedure Debridement -Clinical Debridement Subcutaneous -Post Debridement Size (cm) - Length 0.5 -Post Debridement Size (cm) - Width 0.2 -Post Debridement Size (cm) - Depth 0.8 -Total Square Cm 0.10 -Wound/Ulcer Outcome Not Healed -Ulcer Cleansing Not Cleansed -Foul Odor after Cleansing No -Bioengineered Tissue No -Bleeding Controlled with NA -Treatment Response Procedure Tolerated Well #1 L 3rd toe -Time 15:01 -Correct Patient Yes -Correct Side, Site, Position Yes -Correct Procedure Yes -Procedure Performed Yes -Type of Procedure Debridement -Clinical Debridement Subcutaneous -Post Debridement Size (cm) - Length 0.2 -Post Debridement Size (cm) - Width 0.5 -Post Debridement Size (cm) - Depth 0.8 -Total Square Cm 0.10 -Wound/Ulcer Outcome Not Healed -Ulcer Cleansing Not Cleansed -Foul Odor after Cleansing No -Bleeding Controlled with NA -Treatment Response Procedure Tolerated Well #3 left 3rd toe Superior @ 2oclock -Time 15:01 -Correct Patient Yes -Correct Side, Site, Position Yes -Correct Procedure Yes -Procedure Performed Yes -Type of Procedure Debridement -Clinical Debridement Subcutaneous -Wound/Ulcer Outcome Not Healed -Ulcer Cleansing Not Cleansed -Foul Odor after Cleansing No -Bioengineered Tissue No -Bleeding Controlled with NA -Treatment Response Procedure Tolerated Well [See Physician Procedure note for Specifics] Pain Scale: 0-10 Numeric [Pain] -Is Patient Pain Free? Yes Psych/Mental Status: Normal Affect, Appropriate Debridement Note Post-Debridement Measurements/Treatment WC - Nurse 2 - General Ulcer CM Notes Start: 05/20/18 16:14 Freq: Status: Active Protocol: Activity Type Activity Date Activity User E-Sign Co-Sign Detail Recorded Client Recorded Date Recorded By Document 05/20/18 16:37 [id number] 05/20/18 16:50 CS Document 05/27/18 16:08 [id number] 05/27/18 16:17 CS Document 06/03/18 15:01 [id number] 06/03/18 15:11 05/20/18 05/27/18 06/03/18 16:37 16:08 15:01 Wound Center Nurse 2 #2 L 4th toe -Time 16:38 16:11 15:01 -Correct Patient Yes Yes Yes -Correct Side, Site, Position Yes Yes Yes -Correct Procedure Yes Yes Yes -Procedure Performed Yes Yes Yes -Type of Procedure Debridement Debridement Debridement -Clinical Debridement Subcutaneous Subcutaneous Subcutaneous -Post Debridement Size (cm) - Length 0.5 0.5 0.5 -Post Debridement Size (cm) - Width 0.2 0.2 0.2 -Post Debridement Size (cm) - Depth 0.6 0.7 0.8 -Total Square Cm 0.10 0.10 0.10 -Wound/Ulcer Outcome Not Healed Not Healed Not Healed -Ulcer Cleansing Not Cleansed Not Cleansed Not Cleansed -Foul Odor after Cleansing No No No -Bioengineered Tissue No No No -Bleeding Controlled with NA NA NA -Treatment Response Procedure Procedure Procedure Tolerated Well Tolerated Well Tolerated Well #1 L 3rd toe -Time 16:39 16:10 15:01 -Correct Patient Yes Yes Yes -Correct Side, Site, Position Yes Yes Yes -Correct Procedure Yes Yes Yes -Procedure Performed Yes Yes Yes -Type of Procedure Debridement Debridement Debridement -Clinical Debridement Subcutaneous Subcutaneous Subcutaneous -Post Debridement Size (cm) - Length 0.1 0.2 0.2 -Post Debridement Size (cm) - Width 0.1 0.3 0.5 -Post Debridement Size (cm) - Depth 0.5 0.7 0.8 -Total Square Cm 0.01 0.06 0.10 -Wound/Ulcer Outcome Not Healed Not Healed Not Healed -Ulcer Cleansing Not Cleansed Not Cleansed Not Cleansed -Foul Odor after Cleansing No No No -Bioengineered Tissue No No -Bleeding Controlled with NA NA NA -Treatment Response Procedure Procedure Procedure Tolerated Well Tolerated Well Tolerated Well #3 left 3rd toe Superior @ 2oclock -Time 16:39 16:11 15:01 -Correct Patient Yes Yes Yes -Correct Side, Site, Position Yes Yes Yes -Correct Procedure Yes Yes Yes -Procedure Performed Yes Yes Yes -Type of Procedure Debridement Debridement Debridement -Clinical Debridement Subcutaneous Subcutaneous Subcutaneous -Post Debridement Size (cm) - Length 0.2 0.2 -Post Debridement Size (cm) - Width 0.1 0.3 -Post Debridement Size (cm) - Depth 0.6 0.6 -Total Square Cm 0.02 0.06 -Wound/Ulcer Outcome Not Healed Not Healed Not Healed -Ulcer Cleansing Not Cleansed Not Cleansed Not Cleansed -Foul Odor after Cleansing No No No -Bioengineered Tissue No No No -Bleeding Controlled with NA NA NA -Treatment Response Procedure Procedure Procedure Tolerated Well Tolerated Well Tolerated Well Pain Scale: 0-10 Numeric Is Patient Pain Free? Yes Yes Yes Wound debrided: left 4th toe Laterality: Left Type of Debridement: Excisional debridement Anesthesia Used: 4% Lidocaine Solution Depth: Down to and including healthy tissue, in the subcutaneous layer, to bone Percentage of wound debrided: 100 Instrument Used: - - probe Tissue Removed: devitalized tissue Severity: Necrosis of Bone Amount of bleeding with debridement: Mild Bleeding Controlled with: Compression and gauze Patient tolerated procedure well - Additional Wound Wound debrided: left 3rd toe Laterality: Left Type of Debridement: Excisional debridement Anesthesia Used: 4% Lidocaine Solution Depth: Down to and including healthy tissue, in the subcutaneous layer, to bone Percentage of wound debrided: 100 Instrument Used: - - 1 mm curette Tissue Removed: devitalized tissue Severity: Necrosis of Bone Amount of bleeding with debridement: Mild Bleeding Controlled with: Compression and gauze Patient tolerated procedure: Patient tolerated procedure well Assessment/Plan Active Problems (Last Updated 08/27/17 @ 15:05 by JOHNY Brown) Diabetic foot ulcer with osteomyelitis (Chronic) 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 Chronic osteomyelitis. PAD. DM type 2 w/ ESRD on dialysis, uncontrolled last A1C 05/05 8.8% Plan: Marshal was evaluated today and his wounds were debrided. He is taking doxycycline and wound culture was positive for anaerobic cocci. Jose called in but he has not started this yet. The openings in his toes are still present and purulence can be expressed upon placing pressure on his toes. Orders given to evaluate him for possible treatment with hyperbaric oxygen at his last visit a month ago but weren't completed. Xrays of his foot and toes ordered to evaluate his osteomyelitis for further progression were done and it is relatively unchanged. Concerns for noncompliance with medical treatment are present. He was encouraged to wear surgical shoe to offload his toes and to dress his wounds daily with betadine and gauze even if he feels that they are healed. Advised against soaking his feet in Epsom salts. Records regarding his vascular evaluation peripheral arterial disease without significant venous disease. Will continue dressings with betadine and gauze presently. Advised consistent use of offloading surgical shoe that was previously prescribed for him which he has at home. Will evaluate and consider treatment with HBO given his chronic osteomyelitis and diabetic foot ulcers. Encouraged improved glucose control and increased protein intake to promote healing. Spoke with his daughter Lin who did not offer any additional information regarding what testing or the plan of care had been when he was discharged from the hospital at [facility] several months ago without IV antibiotic treatment. She is agreeable to a second opinion regarding his condition. Plan to call Dr. Dukes to see if there is any additional information regarding the testing and decision to not perform surgery or pursue treatment with IV antibiotics previously. F/U in 2 weeks.
[2018-06-17 14:55] VITALS: BP 127/77; PULSE 81; RESP 20; TEMP 36.4
--- NOTE | 2018-06-17 18:20 | PCM.WC.PN ---
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 Current Visit: Yes Qualifiers: Diabetic foot ulcer location: toe Diabetes mellitus type: type 2 Qualified Code(s): E11.621 - Type 2 diabetes mellitus with foot ulcer; L97.524 - Non-pressure chronic ulcer of other part of left foot with necrosis of bone Code(s): E11.621 - Type 2 diabetes mellitus with foot ulcer; L97.524 - Non-pressure chronic ulcer of other part of left foot with necrosis of bone (3) T2DM (type 2 diabetes mellitus) Status: Chronic Current Visit: Yes Qualifiers: 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 Diabetes mellitus complication status: with kidney complications Diabetes mellitus complication detail: with chronic kidney disease Chronic kidney disease stage: on chronic dialysis Qualified Code(s): E11.22 - Type 2 diabetes mellitus with diabetic chronic kidney disease; N18.6 - End stage renal disease; Z79.4 - intermodal customer service (current) use of insulin; Z99.2 - Dependence on renal dialysis Code(s): E11.9 - Type 2 diabetes mellitus without complications (4) Chronic kidney disease (CKD) stage G5/A1, glomerular filtration rate (GFR) less than or equal to 15 mL/min/1.73 square meter and albuminuria creatinine ratio less than 30 mg/g Status: Chronic Current Visit: Yes Code(s): N18.5 - Chronic kidney disease, stage 5 Comment: on dialysis , , Wed (5) Chronic osteomyelitis of left foot Status: Chronic Current Visit: Yes Code(s): M86.672 - Other chronic osteomyelitis, left ankle and foot (6) Neuropathy due to type 2 diabetes mellitus Status: Chronic Current Visit: Yes Code(s): E11.40 - Type 2 diabetes mellitus with diabetic neuropathy, unspecified Type of Wound Date of Service: 06/17/18 Chief Complaint: nonhealing wounds to toes, osteomyelitis History of Wound: Marshal is a 77 yo male that has been referred to the wound center for evaluation and treatment for nonhealing wounds of his 3rd and 4th toes by Dr. Dukes, his food and nutrition professor. He is a poor historian. He has had these wounds for several months, review of his records show that he was diagnosed with osteomyelitis possibly in December. He has been evaluated by vascular surgeon at [facility] regarding possible amputation of his affected toes and they have felt that he is not a candidate for surgery due to poor circulation and are concerned that he would not heal after surgery. His most recent xray was done on 03/02/18 and showed continued osteomyelitis with loss of bone to distal phalanx of both his 3rd and 4th toes. He was on doxycycline orally for several weeks and saw ID and was told to discontinue doxycycline once current RX was completed. His wounds had been being dressed with betadine and gauze dressings. He was instructed to use a surgical shoe but has not been doing so consistently. His most recent A1C was 8.5% on 12/22/17. He is on dialysis , , Wed. for ESRD. Hgb 03/02/18 was 11.5. ESR 96, CRP 6.3. He denies any pain, fever or chills. Marshal was seen by Dr. Celis, CLAUDIA and was recommended completing oral antibiotics as ordered and did not add or feel it necessary to initiate IV antibiotics. Marshal then failed to follow up for several weeks. He continues to be noncompliant with wearing his surgical shoe but states that he had been using betadine to his toes. He presents in socks without bandages and wearing sneakers to all of his visits. Repeat xrays as of 05/27/18 show progression of osteomyelitis. He was restarted on doxycycline and wound cultures were repeated and were positive for anaerobic bacteria and he was started on Flagyl. Progress of Wound: He denies any drainage from his toes, pain or any changes. He has been using Aquacel Ag rope to his open wounds of his toes. He has not followed up with Dr. Dukes as he states he was told he does not need to return if he is being treated here. He continues to receive dialysis Tuesdays, and Saturdays. Xray on 05/27/18, showed progression of osteomyelitis to all toes. He has been noncompliant with visits at the wound center and questionable compliance with podiatry visits as well. Spoke with his daughter and it is still unclear as to why surgery was not recommended or revascularization not recommended. Unable to reach Dr. Dukes for further information. Patient denies fever or chills. - Physical Exam Vital Signs Temp Pulse Resp BP 97.6 F L 81 20 H 127/77 H 06/17/18 14:55 06/17/18 14:55 06/17/18 14:55 06/17/18 14:55 General: Alert, Oriented x3, Cooperative, No apparent distress HEENT: Atraumatic, Normocephalic Oral: Moist Mucosa Abdomen: Obese Extremities: Edema Skin: Ulcer/ Wound Wound Measurements and Assessment WC - Nurse 1 - General Ulcer Measurement Start: 05/20/18 16:14 Freq: Status: Active Protocol: Activity Type Activity Date Activity User E-Sign Co-Sign Detail Recorded Client Recorded Date Recorded By Document 06/17/18 14:55 DL [id number] 06/17/18 15:06 DL 06/17/18 14:55 Wound Center Nurse 1 [Ulcer Assessment] #2 L 4th toe -Current Size (cm) - Length 0.1 -Current Size (cm) - Width 0.1 -Current Size (cm) - Depth 0.1 -Total Square Cm 0.01 -Photo Taken No -Exudate Amt None Present (0 %) -Wound Margin Thickened -Granulation Amt Large (67-100%) -Granulation Quality Pale -Necrosis Amt Small (1-33%) -Necrotic Tissue Type Adherent Slough -Structure Exposed N/A -Texture (Kalani-wound Skin Appearance) Scarring -Moisture (Kalani-wound Skin Appearance Dry/Scaly ) -Color (Kalani-wound Skin Appearance) No Abnormality -Temperature (Kalani-wound Skin No Abnormality Appearance) (Pt Warm) -Tenderness on Palpation (Kalani-wound No Skin Appearance) -Ulcer Cleansing Rinsed/ Irrigated with Saline -Foul Odor after Cleansing No -Anesthetic Used 4% Lidocaine Solution #1 L 3rd toe -Current Size (cm) - Length 0.1 -Current Size (cm) - Width 0.1 -Current Size (cm) - Depth 0.1 -Total Square Cm 0.01 -Photo Taken No -Exudate Amt None Present (0 %) -Wound Margin Flat & Intact -Granulation Amt Large (67-100%) -Granulation Quality Pale -Necrosis Amt None Present (0 %) -Structure Exposed N/A -Texture (Kalani-wound Skin Appearance) Scarring -Moisture (Kalani-wound Skin Appearance No Abnormality ) -Color (Kalani-wound Skin Appearance) No Abnormality -Temperature (Kalani-wound Skin No Abnormality Appearance) (Pt Warm) -Tenderness on Palpation (Kalani-wound No Skin Appearance) -Ulcer Cleansing Rinsed/ Irrigated with Saline -Foul Odor after Cleansing No -Anesthetic Used 4% Lidocaine Solution WC - Nurse 2 - General Ulcer CM Notes Start: 05/20/18 16:14 Freq: Status: Active Protocol: Activity Type Activity Date Activity User E-Sign Co-Sign Detail Recorded Client Recorded Date Recorded By Document 06/17/18 15:50 [id number] 06/17/18 15:51 06/17/18 15:50 Wound Center Nurse 2 [Procedure/Treatment] #2 L 4th toe -Time 15:51 -Correct Patient Yes -Correct Side, Site, Position Yes -Correct Procedure Yes -Procedure Performed Yes -Type of Procedure Debridement -Clinical Debridement Subcutaneous -Post Debridement Size (cm) - Length 0.5 -Post Debridement Size (cm) - Width 0.2 -Post Debridement Size (cm) - Depth 1 -Total Square Cm 0.10 -Wound/Ulcer Outcome Not Healed -Ulcer Cleansing Not Cleansed -Foul Odor after Cleansing No -Bioengineered Tissue No -Bleeding Controlled with NA -Offloading No -Type of Offloading Surgical Shoe -Treatment Response Procedure Tolerated Well #1 L 3rd toe -Time 15:50 -Correct Patient Yes -Correct Side, Site, Position Yes -Correct Procedure Yes -Procedure Performed Yes -Type of Procedure Debridement -Clinical Debridement Subcutaneous -Post Debridement Size (cm) - Length 0.3 -Post Debridement Size (cm) - Width 0.4 -Post Debridement Size (cm) - Depth 1 -Total Square Cm 0.12 -Wound/Ulcer Outcome Not Healed -Ulcer Cleansing Rinsed/ Irrigated with Saline -Foul Odor after Cleansing No -Bioengineered Tissue No -Bleeding Controlled with NA -Offloading No -Type of Offloading Surgical Shoe -Treatment Response Procedure Tolerated Well [See Physician Procedure note for Specifics] Pain Scale: 0-10 Numeric [Pain] -Is Patient Pain Free? Yes Psych/Mental Status: Normal Affect - less erythema and swelling, there are now 2 pinpoint areas of ulceration on the dorsal aspect of his 4th toe, Appropriate Debridement Note Post-Debridement Measurements/Treatment WC - Nurse 2 - General Ulcer CM Notes Start: 05/20/18 16:14 Freq: Status: Active Protocol: Activity Type Activity Date Activity User E-Sign Co-Sign Detail Recorded Client Recorded Date Recorded By Document 05/20/18 16:37 [id number] 05/20/18 16:50 CS Document 05/27/18 16:08 [id number] 05/27/18 16:17 CS Document 06/03/18 15:01 [id number] 06/03/18 15:11 CS Document 06/17/18 15:50 [id number] 06/17/18 15:51 CS 05/20/18 05/27/18 06/03/18 16:37 16:08 15:01 Wound Center Nurse 2 #2 L 4th toe -Time 16:38 16:11 15:01 -Correct Patient Yes Yes Yes -Correct Side, Site, Position Yes Yes Yes -Correct Procedure Yes Yes Yes -Procedure Performed Yes Yes Yes -Type of Procedure Debridement Debridement Debridement -Clinical Debridement Subcutaneous Subcutaneous Subcutaneous -Post Debridement Size (cm) - Length 0.5 0.5 0.5 -Post Debridement Size (cm) - Width 0.2 0.2 0.2 -Post Debridement Size (cm) - Depth 0.6 0.7 0.8 -Total Square Cm 0.10 0.10 0.10 -Wound/Ulcer Outcome Not Healed Not Healed Not Healed -Ulcer Cleansing Not Cleansed Not Cleansed Not Cleansed -Foul Odor after Cleansing No No No -Bioengineered Tissue No No No -Bleeding Controlled with NA NA NA -Offloading -Type of Offloading -Treatment Response Procedure Procedure Procedure Tolerated Well Tolerated Well Tolerated Well #1 L 3rd toe -Time 16:39 16:10 15:01 -Correct Patient Yes Yes Yes -Correct Side, Site, Position Yes Yes Yes -Correct Procedure Yes Yes Yes -Procedure Performed Yes Yes Yes -Type of Procedure Debridement Debridement Debridement -Clinical Debridement Subcutaneous Subcutaneous Subcutaneous -Post Debridement Size (cm) - Length 0.1 0.2 0.2 -Post Debridement Size (cm) - Width 0.1 0.3 0.5 -Post Debridement Size (cm) - Depth 0.5 0.7 0.8 -Total Square Cm 0.01 0.06 0.10 -Wound/Ulcer Outcome Not Healed Not Healed Not Healed -Ulcer Cleansing Not Cleansed Not Cleansed Not Cleansed -Foul Odor after Cleansing No No No -Bioengineered Tissue No No -Bleeding Controlled with NA NA NA -Offloading -Type of Offloading -Treatment Response Procedure Procedure Procedure Tolerated Well Tolerated Well Tolerated Well #3 left 3rd toe Superior @ 2oclock -Time 16:39 16:11 15:01 -Correct Patient Yes Yes Yes -Correct Side, Site, Position Yes Yes Yes -Correct Procedure Yes Yes Yes -Procedure Performed Yes Yes Yes -Type of Procedure Debridement Debridement Debridement -Clinical Debridement Subcutaneous Subcutaneous Subcutaneous -Post Debridement Size (cm) - Length 0.2 0.2 -Post Debridement Size (cm) - Width 0.1 0.3 -Post Debridement Size (cm) - Depth 0.6 0.6 -Total Square Cm 0.02 0.06 -Wound/Ulcer Outcome Not Healed Not Healed Not Healed -Ulcer Cleansing Not Cleansed Not Cleansed Not Cleansed -Foul Odor after Cleansing No No No -Bioengineered Tissue No No No -Bleeding Controlled with NA NA NA -Treatment Response Procedure Procedure Procedure Tolerated Well Tolerated Well Tolerated Well Pain Scale: 0-10 Numeric Is Patient Pain Free? Yes Yes Yes 06/17/18 15:50 Wound Center Nurse 2 #2 L 4th toe -Time 15:51 -Correct Patient Yes -Correct Side, Site, Position Yes -Correct Procedure Yes -Procedure Performed Yes -Type of Procedure Debridement -Clinical Debridement Subcutaneous -Post Debridement Size (cm) - Length 0.5 -Post Debridement Size (cm) - Width 0.2 -Post Debridement Size (cm) - Depth 1 -Total Square Cm 0.10 -Wound/Ulcer Outcome Not Healed -Ulcer Cleansing Not Cleansed -Foul Odor after Cleansing No -Bioengineered Tissue No -Bleeding Controlled with NA -Offloading No -Type of Offloading Surgical Shoe -Treatment Response Procedure Tolerated Well #1 L 3rd toe -Time 15:50 -Correct Patient Yes -Correct Side, Site, Position Yes -Correct Procedure Yes -Procedure Performed Yes -Type of Procedure Debridement -Clinical Debridement Subcutaneous -Post Debridement Size (cm) - Length 0.3 -Post Debridement Size (cm) - Width 0.4 -Post Debridement Size (cm) - Depth 1 -Total Square Cm 0.12 -Wound/Ulcer Outcome Not Healed -Ulcer Cleansing Rinsed/ Irrigated with Saline -Foul Odor after Cleansing No -Bioengineered Tissue No -Bleeding Controlled with NA -Offloading No -Type of Offloading Surgical Shoe -Treatment Response Procedure Tolerated Well #3 left 3rd toe Superior @ 2oclock -Time -Correct Patient -Correct Side, Site, Position -Correct Procedure -Procedure Performed -Type of Procedure -Clinical Debridement -Post Debridement Size (cm) - Length -Post Debridement Size (cm) - Width -Post Debridement Size (cm) - Depth -Total Square Cm -Wound/Ulcer Outcome -Ulcer Cleansing -Foul Odor after Cleansing -Bioengineered Tissue -Bleeding Controlled with -Treatment Response Pain Scale: 0-10 Numeric Is Patient Pain Free? Yes Wound debrided: left 4th toe Laterality: Left Wound Grade/Stage: sargent grade 3 Type of Debridement: Excisional debridement Anesthesia Used: 4% Lidocaine Solution Depth: Down to and including healthy tissue, in the subcutaneous layer, to muscle, to bone Percentage of wound debrided: 100 Instrument Used: - - probe Tissue Removed: yellow slough, devitalized tissue/bone Severity: Necrosis of Bone Amount of bleeding with debridement: Mild Bleeding Controlled with: Compression and gauze Patient tolerated procedure well - Additional Wound Wound debrided: left 3rd toe Laterality: Left Wound Grade/Stage: Sargent grade 3 Type of Debridement: Excisional debridement Anesthesia Used: 4% Lidocaine Solution Depth: Down to and including healthy tissue, in the subcutaneous layer, to muscle, to bone Percentage of wound debrided: 100 Instrument Used: - - probe Tissue Removed: yellow slough, devitalized tissue/bone Severity: Necrosis of Bone Amount of bleeding with debridement: None Bleeding Controlled with: Compression and gauze Patient tolerated procedure: Patient tolerated procedure well Assessment/Plan Active Problems (Last Updated 08/27/17 @ 15:05 by JOHNY Brown) Diabetic foot ulcer with osteomyelitis (Chronic) 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 Chronic osteomyelitis. PAD. DM type 2 w/ ESRD on dialysis, uncontrolled last A1C 05/05 8.8% Plan: Marshal was evaluated today and his wounds were debrided. He is taking doxycycline. The openings in his toes are still present but no purulence can be expressed upon placing pressure on his toes today. Orders given to evaluate him for possible treatment with hyperbaric oxygen at his last visit a month ago but weren't completed. Xrays of his foot and toes ordered to evaluate his osteomyelitis for further progression were done and it is relatively unchanged from s xrays but has progressed from his initial presentation. Concerns for noncompliance with medical treatment are present. He was encouraged to wear surgical shoe to offload his toes and to dress his wounds daily but he does not wear surgical shoe. Records regarding his vascular evaluation reviewed show peripheral arterial disease without significant venous disease. Will continue dressings Aquacel Ag rope. Advised consistent use of offloading surgical shoe that was previously prescribed for him which he has at home. I do not feel that he is a good candidate at this time for HBO treatment due to complexity of his medical conditions and noncompliance. I am referring him to be evaluated by podiatry here as his current food and nutrition professor does not intend to do any further treatment at this time. Infectious disease consult is also requested regarding need for IV antibiotic treatment vs. continued oral treatment due to his chronic and progressing osteomyelitis. Records from vascular surgery and hospitalization to further evaluate whether revascularization is an option have been requested. Encouraged improved glucose control and increased protein intake to promote healing. Spoke with his daughter Lin who did not offer any additional information regarding what testing or the plan of care had been when he was discharged from the hospital at [facility] in December. She is agreeable to a second opinion regarding his condition. F/U with Dr. Han and will be willing to continue seeing him if she feels conservative or palliative treatment is his only option.
--- NOTE | 2018-06-17 18:25 | PN.PCM_ITS ---
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 Current Visit: Yes Qualifiers: Diabetic foot ulcer location: toe Diabetes mellitus type: type 2 Qualified Code(s): E11.621 - Type 2 diabetes mellitus with foot ulcer; L97.524 - Non-pressure chronic ulcer of other part of left foot with necrosis of bone Code(s): E11.621 - Type 2 diabetes mellitus with foot ulcer; L97.524 - Non- pressure chronic ulcer of other part of left foot with necrosis of bone (3) T2DM (type 2 diabetes mellitus) Status: Chronic Current Visit: Yes Qualifiers: Diabetes mellitus mcfp insulin use: with mcfp use Diabetes mellitus complication status: with kidney complications Diabetes mellitus complication detail: with chronic kidney disease Chronic kidney disease stage: on chronic dialysis Qualified Code(s): E11.22 - Type 2 diabetes mellitus with diabetic chronic kidney disease; N18.6 - End stage renal disease; Z79.4 - seo consultant (current) use of insulin; Z99.2 - Dependence on renal dialysis Code(s): E11.9 - Type 2 diabetes mellitus without complications (4) Chronic kidney disease (CKD) stage G5/A1, glomerular filtration rate (GFR) less than or equal to 15 mL/min/1.73 square meter and albuminuria creatinine ratio less than 30 mg/g Status: Chronic Current Visit: Yes Code(s): N18.5 - Chronic kidney disease, stage 5 Comment: on dialysis , , Wed (5) Chronic osteomyelitis of left foot Status: Chronic Current Visit: Yes Code(s): M86.672 - Other chronic osteomyelitis, left ankle and foot (6) Neuropathy due to type 2 diabetes mellitus Status: Chronic Current Visit: Yes Code(s): E11.40 - Type 2 diabetes mellitus with diabetic neuropathy, unspecified Type of Wound Date of Service: 06/17/18 Chief Complaint: nonhealing wounds to toes, osteomyelitis History of Wound: Marshal is a 77 yo male that has been referred to the wound center for evaluation and treatment for nonhealing wounds of his 3rd and 4th toes by Dr. Dukes, his manager strategy & account. He is a poor historian. He has had these wounds for several months, review of his records show that he was diagnosed with osteomyelitis possibly in December. He has been evaluated by vascular surgeon at [facility] regarding possible amputation of his affected toes and they have felt that he is not a candidate for surgery due to poor circulation and are concerned that he would not heal after surgery. His most recent xray was done on 03/02/18 and showed continued osteomyelitis with loss of bone to distal phalanx of both his 3rd and 4th toes. He was on doxycycline orally for several weeks and saw ID and was told to discontinue doxycycline once current RX was completed. His wounds had been being dressed with betadine and gauze dressings. He was instructed to use a surgical shoe but has not been doing so consistently. His most recent A1C was 8.5% on 12/22/17. He is on dialysis , , Wed. for ESRD. Hgb 03/02/18 was 11.5. ESR 96, CRP 6.3. He denies any pain, fever or chills. Marshal was seen by Dr. Celis, CLAUDIA and was recommended completing oral antibiotics as ordered and did not add or feel it necessary to initiate IV antibiotics. Marshal then failed to follow up for several weeks. He continues to be noncompliant with wearing his surgical shoe but states that he had been using betadine to his toes. He presents in socks without bandages and wearing sneakers to all of his visits. Repeat xrays as of 05/27/18 show progression of osteomyelitis. He was restarted on doxycycline and wound cultures were repeated and were positive for anaerobic bacteria and he was started on Flagyl. Progress of Wound: He denies any drainage from his toes, pain or any changes. He has been using Aquacel Ag rope to his open wounds of his toes. He has not followed up with Dr. Dukes as he states he was told he does not need to return if he is being treated here. He continues to receive dialysis Tuesdays, and Saturdays. Xray on 05/27/18, showed progression of osteomyelitis to all toes. He has been noncompliant with visits at the wound center and questionable compliance with podiatry visits as well. Spoke with his daughter and it is still unclear as to why surgery was not recommended or revascularization not recommended. Unable to reach Dr. Dukes for further information. Patient denies fever or chills. - Physical Exam Vital Signs Temp Pulse Resp BP 97.6 F L 81 20 H 127/77 H 06/17/18 14:55 06/17/18 14:55 06/17/18 14:55 06/17/18 14:55 General: Alert, Oriented x3, Cooperative, No apparent distress HEENT: Atraumatic, Normocephalic Oral: Moist Mucosa Abdomen: Obese Extremities: Edema Skin: Ulcer/ Wound Wound Measurements and Assessment WC - Nurse 1 - General Ulcer Measurement Start: 05/20/18 16:14 Freq: Status: Active Protocol: Activity Type Activity Date Activity User E-Sign Co-Sign Detail Recorded Client Recorded Date Recorded By Document 06/17/18 14:55 DL [id number] 06/17/18 15:06 DL 06/17/18 14:55 Wound Center Nurse 1 [Ulcer Assessment] #2 L 4th toe -Current Size (cm) - Length 0.1 -Current Size (cm) - Width 0.1 -Current Size (cm) - Depth 0.1 -Total Square Cm 0.01 -Photo Taken No -Exudate Amt None Present (0 %) -Wound Margin Thickened -Granulation Amt Large (67-100%) -Granulation Quality Pale -Necrosis Amt Small (1-33%) -Necrotic Tissue Type Adherent Slough -Structure Exposed N/A -Texture (Kalani-wound Skin Appearance) Scarring -Moisture (Kalani-wound Skin Appearance Dry/Scaly ) -Color (Kalani-wound Skin Appearance) No Abnormality -Temperature (Kalani-wound Skin No Abnormality Appearance) (Pt Warm) -Tenderness on Palpation (Kalani-wound No Skin Appearance) -Ulcer Cleansing Rinsed/ Irrigated with Saline -Foul Odor after Cleansing No -Anesthetic Used 4% Lidocaine Solution #1 L 3rd toe -Current Size (cm) - Length 0.1 -Current Size (cm) - Width 0.1 -Current Size (cm) - Depth 0.1 -Total Square Cm 0.01 -Photo Taken No -Exudate Amt None Present (0 %) -Wound Margin Flat & Intact -Granulation Amt Large (67-100%) -Granulation Quality Pale -Necrosis Amt None Present (0 %) -Structure Exposed N/A -Texture (Kalani-wound Skin Appearance) Scarring -Moisture (Kalani-wound Skin Appearance No Abnormality ) -Color (Kalani-wound Skin Appearance) No Abnormality -Temperature (Kalani-wound Skin No Abnormality Appearance) (Pt Warm) -Tenderness on Palpation (Kalani-wound No Skin Appearance) -Ulcer Cleansing Rinsed/ Irrigated with Saline -Foul Odor after Cleansing No -Anesthetic Used 4% Lidocaine Solution WC - Nurse 2 - General Ulcer CM Notes Start: 05/20/18 16:14 Freq: Status: Active Protocol: Activity Type Activity Date Activity User E-Sign Co-Sign Detail Recorded Client Recorded Date Recorded By Document 06/17/18 15:50 [id number] 06/17/18 15:51 06/17/18 15:50 Wound Center Nurse 2 [Procedure/Treatment] #2 L 4th toe -Time 15:51 -Correct Patient Yes -Correct Side, Site, Position Yes -Correct Procedure Yes -Procedure Performed Yes -Type of Procedure Debridement -Clinical Debridement Subcutaneous -Post Debridement Size (cm) - Length 0.5 -Post Debridement Size (cm) - Width 0.2 -Post Debridement Size (cm) - Depth 1 -Total Square Cm 0.10 -Wound/Ulcer Outcome Not Healed -Ulcer Cleansing Not Cleansed -Foul Odor after Cleansing No -Bioengineered Tissue No -Bleeding Controlled with NA -Offloading No -Type of Offloading Surgical Shoe -Treatment Response Procedure Tolerated Well #1 L 3rd toe -Time 15:50 -Correct Patient Yes -Correct Side, Site, Position Yes -Correct Procedure Yes -Procedure Performed Yes -Type of Procedure Debridement -Clinical Debridement Subcutaneous -Post Debridement Size (cm) - Length 0.3 -Post Debridement Size (cm) - Width 0.4 -Post Debridement Size (cm) - Depth 1 -Total Square Cm 0.12 -Wound/Ulcer Outcome Not Healed -Ulcer Cleansing Rinsed/ Irrigated with Saline -Foul Odor after Cleansing No -Bioengineered Tissue No -Bleeding Controlled with NA -Offloading No -Type of Offloading Surgical Shoe -Treatment Response Procedure Tolerated Well [See Physician Procedure note for Specifics] Pain Scale: 0-10 Numeric [Pain] -Is Patient Pain Free? Yes Psych/Mental Status: Normal Affect - less erythema and swelling, there are now 2 pinpoint areas of ulceration on the dorsal aspect of his 4th toe, Appropriate Debridement Note Post-Debridement Measurements/Treatment WC - Nurse 2 - General Ulcer CM Notes Start: 05/20/18 16:14 Freq: Status: Active Protocol: Activity Type Activity Date Activity User E-Sign Co-Sign Detail Recorded Client Recorded Date Recorded By Document 05/20/18 16:37 [id number] 05/20/18 16:50 CS Document 05/27/18 16:08 [id number] 05/27/18 16:17 CS Document 06/03/18 15:01 [id number] 06/03/18 15:11 CS Document 06/17/18 15:50 [id number] 06/17/18 15:51 CS 05/20/18 05/27/18 06/03/18 16:37 16:08 15:01 Wound Center Nurse 2 #2 L 4th toe -Time 16:38 16:11 15:01 -Correct Patient Yes Yes Yes -Correct Side, Site, Position Yes Yes Yes -Correct Procedure Yes Yes Yes -Procedure Performed Yes Yes Yes -Type of Procedure Debridement Debridement Debridement -Clinical Debridement Subcutaneous Subcutaneous Subcutaneous -Post Debridement Size (cm) - Length 0.5 0.5 0.5 -Post Debridement Size (cm) - Width 0.2 0.2 0.2 -Post Debridement Size (cm) - Depth 0.6 0.7 0.8 -Total Square Cm 0.10 0.10 0.10 -Wound/Ulcer Outcome Not Healed Not Healed Not Healed -Ulcer Cleansing Not Cleansed Not Cleansed Not Cleansed -Foul Odor after Cleansing No No No -Bioengineered Tissue No No No -Bleeding Controlled with NA NA NA -Offloading -Type of Offloading -Treatment Response Procedure Procedure Procedure Tolerated Well Tolerated Well Tolerated Well #1 L 3rd toe -Time 16:39 16:10 15:01 -Correct Patient Yes Yes Yes -Correct Side, Site, Position Yes Yes Yes -Correct Procedure Yes Yes Yes -Procedure Performed Yes Yes Yes -Type of Procedure Debridement Debridement Debridement -Clinical Debridement Subcutaneous Subcutaneous Subcutaneous -Post Debridement Size (cm) - Length 0.1 0.2 0.2 -Post Debridement Size (cm) - Width 0.1 0.3 0.5 -Post Debridement Size (cm) - Depth 0.5 0.7 0.8 -Total Square Cm 0.01 0.06 0.10 -Wound/Ulcer Outcome Not Healed Not Healed Not Healed -Ulcer Cleansing Not Cleansed Not Cleansed Not Cleansed -Foul Odor after Cleansing No No No -Bioengineered Tissue No No -Bleeding Controlled with NA NA NA -Offloading -Type of Offloading -Treatment Response Procedure Procedure Procedure Tolerated Well Tolerated Well Tolerated Well #3 left 3rd toe Superior @ 2oclock -Time 16:39 16:11 15:01 -Correct Patient Yes Yes Yes -Correct Side, Site, Position Yes Yes Yes -Correct Procedure Yes Yes Yes -Procedure Performed Yes Yes Yes -Type of Procedure Debridement Debridement Debridement -Clinical Debridement Subcutaneous Subcutaneous Subcutaneous -Post Debridement Size (cm) - Length 0.2 0.2 -Post Debridement Size (cm) - Width 0.1 0.3 -Post Debridement Size (cm) - Depth 0.6 0.6 -Total Square Cm 0.02 0.06 -Wound/Ulcer Outcome Not Healed Not Healed Not Healed -Ulcer Cleansing Not Cleansed Not Cleansed Not Cleansed -Foul Odor after Cleansing No No No -Bioengineered Tissue No No No -Bleeding Controlled with NA NA NA -Treatment Response Procedure Procedure Procedure Tolerated Well Tolerated Well Tolerated Well Pain Scale: 0-10 Numeric Is Patient Pain Free? Yes Yes Yes 06/17/18 15:50 Wound Center Nurse 2 #2 L 4th toe -Time 15:51 -Correct Patient Yes -Correct Side, Site, Position Yes -Correct Procedure Yes -Procedure Performed Yes -Type of Procedure Debridement -Clinical Debridement Subcutaneous -Post Debridement Size (cm) - Length 0.5 -Post Debridement Size (cm) - Width 0.2 -Post Debridement Size (cm) - Depth 1 -Total Square Cm 0.10 -Wound/Ulcer Outcome Not Healed -Ulcer Cleansing Not Cleansed -Foul Odor after Cleansing No -Bioengineered Tissue No -Bleeding Controlled with NA -Offloading No -Type of Offloading Surgical Shoe -Treatment Response Procedure Tolerated Well #1 L 3rd toe -Time 15:50 -Correct Patient Yes -Correct Side, Site, Position Yes -Correct Procedure Yes -Procedure Performed Yes -Type of Procedure Debridement -Clinical Debridement Subcutaneous -Post Debridement Size (cm) - Length 0.3 -Post Debridement Size (cm) - Width 0.4 -Post Debridement Size (cm) - Depth 1 -Total Square Cm 0.12 -Wound/Ulcer Outcome Not Healed -Ulcer Cleansing Rinsed/ Irrigated with Saline -Foul Odor after Cleansing No -Bioengineered Tissue No -Bleeding Controlled with NA -Offloading No -Type of Offloading Surgical Shoe -Treatment Response Procedure Tolerated Well #3 left 3rd toe Superior @ 2oclock -Time -Correct Patient -Correct Side, Site, Position -Correct Procedure -Procedure Performed -Type of Procedure -Clinical Debridement -Post Debridement Size (cm) - Length -Post Debridement Size (cm) - Width -Post Debridement Size (cm) - Depth -Total Square Cm -Wound/Ulcer Outcome -Ulcer Cleansing -Foul Odor after Cleansing -Bioengineered Tissue -Bleeding Controlled with -Treatment Response Pain Scale: 0-10 Numeric Is Patient Pain Free? Yes Wound debrided: left 4th toe Laterality: Left Wound Grade/Stage: sargent grade 3 Type of Debridement: Excisional debridement Anesthesia Used: 4% Lidocaine Solution Depth: Down to and including healthy tissue, in the subcutaneous layer, to muscle, to bone Percentage of wound debrided: 100 Instrument Used: - - probe Tissue Removed: yellow slough, devitalized tissue/bone Severity: Necrosis of Bone Amount of bleeding with debridement: Mild Bleeding Controlled with: Compression and gauze Patient tolerated procedure well - Additional Wound Wound debrided: left 3rd toe Laterality: Left Wound Grade/Stage: Sargent grade 3 Type of Debridement: Excisional debridement Anesthesia Used: 4% Lidocaine Solution Depth: Down to and including healthy tissue, in the subcutaneous layer, to muscle, to bone Percentage of wound debrided: 100 Instrument Used: - - probe Tissue Removed: yellow slough, devitalized tissue/bone Severity: Necrosis of Bone Amount of bleeding with debridement: None Bleeding Controlled with: Compression and gauze Patient tolerated procedure: Patient tolerated procedure well Assessment/Plan Active Problems (Last Updated 08/27/17 @ 15:05 by JOHNY Brown) Diabetic foot ulcer with osteomyelitis (Chronic) 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 Chronic osteomyelitis. PAD. DM type 2 w/ ESRD on dialysis, uncontrolled last A1C 05/05 8.8% Plan: Marshal was evaluated today and his wounds were debrided. He is taking doxycycline. The openings in his toes are still present but no purulence can be expressed upon placing pressure on his toes today. Orders given to evaluate him for possible treatment with hyperbaric oxygen at his last visit a month ago but weren't completed. Xrays of his foot and toes ordered to evaluate his o steomyelitis for further progression were done and it is relatively unchanged from s xrays but has progressed from his initial presentation. Concerns for noncompliance with medical treatment are present. He was encouraged to wear surgical shoe to offload his toes and to dress his wounds daily but he does not wear surgical shoe. Records regarding his vascular evaluation reviewed show peripheral arterial disease without significant venous disease. Will continue dressings Aquacel Ag rope. Advised consistent use of offloading surgical shoe that was previously prescribed for him which he has at home. I do not feel that he is a good candidate at this time for HBO treatment due to complexity of his medical conditions and noncompliance. I am referring him to be evaluated by podiatry here as his current manager strategy & account does not intend to do any further treatment at this time. Infectious disease consult is also requested regarding need for IV antibiotic treatment vs. continued oral treatment due to his chronic and progressing osteomyelitis. Records from vascular surgery and hospitalization to further evaluate whether revascularization is an option have been requested. Encouraged improved glucose control and increased protein intake to promote healing. Spoke with his daughter Lin who did not offer any additional information regarding what testing or the plan of care had been when he was discharged from the hospital at [facility] in December. She is agreeable to a second opinion regarding his condition. F/U with Dr. Han and will be willing to continue seeing him if she feels conservative or palliative treatment is his only option.
== END 2018-06-17 23:59 ==
LOC: WC 14:30
PROVIDERS: PCP Family Medicine; Visit Provider Family Medicine
DX: E11.621 Type 2 diabetes mellitus with foot ulcer (principal); E11.22 Type 2 diabetes mellitus with diabetic chronic kidney disease; I25.10 Atherosclerotic heart disease of native coronary artery without angina pectoris; E11.51 Type 2 diabetes mellitus with diabetic peripheral angiopathy without gangrene; M86.679 Other chronic osteomyelitis, unspecified ankle and foot; Z79.4 Long term (current) use of insulin; I50.32 Chronic diastolic (congestive) heart failure; L97.524 Non-pressure chronic ulcer of other part of left foot with necrosis of bone; L97.522 Non-pressure chronic ulcer of other part of left foot with fat layer exposed; N18.6 End stage renal disease; Z91.19 Patient's noncompliance with other medical treatment and regimen; E11.40 Type 2 diabetes mellitus with diabetic neuropathy, unspecified; E11.65 Type 2 diabetes mellitus with hyperglycemia
CPT/HCPCS: 11042; 87070; 87075; 87186; 87205

== ENCOUNTER 2018-07-06 13:00 | Outpatient (RCR) | payer MEDICARE, SELFPAY ==
[2017-08-27 14:55] VITALS: BMI 35.1
[2018-06-18 00:16] VITALS: BP 127/77; PULSE 81; RESP 20; TEMP 36.4
[2018-06-22 13:47] VITALS: BMI 35.1
--- NOTE | 2018-06-22 16:45 | PN.PCM_ITS ---
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 Status: Chronic Current Visit: Yes Qualifiers: Code(s): E11.621 - Type 2 diabetes mellitus with foot ulcer; L97.524 - Non- pressure chronic ulcer of other part of left foot with necrosis of bone (2) Type 2 diabetes mellitus with diabetic polyneuropathy Status: Chronic Current Visit: Yes Code(s): E11.42 - Type 2 diabetes mellitus with diabetic polyneuropathy (3) Diabetic foot ulcer with osteomyelitis Status: Chronic Current Visit: Yes Code(s): E11.621 - Type 2 diabetes mellitus with foot ulcer; E11.69 - Type 2 diabetes mellitus with other specified complication; L97.509 - Non-pressure chronic ulcer of other part of unspecified foot with unspecified severity; M86.9 - Osteomyelitis, unspecified (4) CKD (chronic kidney disease) stage 3, GFR 30-59 ml/min Status: Chronic Current Visit: Yes Code(s): N18.3 - Chronic kidney disease, stage 3 (moderate) (5) Chronic ulcer of left foot with fat layer exposed Status: Chronic Current Visit: Yes Code(s): L97.522 - Non-pressure chronic ulcer of other part of left foot with fat layer exposed (6) Peripheral vascular disease Status: Chronic Current Visit: Yes Code(s): I73.9 - Peripheral vascular disease, unspecified (7) Onycholysis of toenail Status: Chronic Current Visit: Yes Code(s): L60.1 - Onycholysis Type of Wound Date of Service: 06/22/18 Chief Complaint: nonhealing wounds to toes, osteomyelitis History of Wound: Marshal is a 77 yo male that has been referred to the wound center for evaluation and treatment for nonhealing wounds of his 3rd and 4th toes by Progress of Wound: He denies any drainage from his toes, pain or any changes. He has been using Aquacel Ag rope to his open wounds of his toes. He has had a prior vascular workup and was informed that he does not have adequate blood flow to the toes. This workup was performed at the [facility] and some of his noninvasive study results are on file here. He most recently saw Dr. Smith. He also has diabetes with lack of normal sensation. He continues to receive dialysis Tuesdays, and Saturdays. Xray on 05/27/18, showed progression of osteomyelitis to all toes. He has been noncompliant with visits at the wound center and questionable compliance with podiatry visits as well per chart review. He was previously advised to wear surgical shoe to offload however he is having trouble doing this with the cold weather. He defers shoe modification to his athletic sneaker that he presents with today he denies fever, chill, nausea, vomiting, loss of appetite, toe pain. - Physical Exam Vital Signs Temp Pulse Resp BP 97.6 F L 81 20 H 127/77 H 06/18/18 00:16 06/18/18 00:16 06/18/18 00:16 06/18/18 00:16 General: Alert, Oriented x3, Cooperative Extremities: No cyanosis, Capillary Refill Less than 3 Seconds, No Calf Tenderness - Negative Aleksandra and Snyder sign bilateral, Diminished Peripheral Pulses, Edema - Mild left lower extremity Skin: Ulcer/ Wound - Distal third toe to the medial aspect of the nail is granular and fibrous without purulence, erythema, streaking, odor, or infection. There is probe to deep structure at this site not directly to bone. The ulcer to the left fourth toenail site has adjacent loose nail bed with probe to deep structures. There is also a pinpoint opening to the dorsal aspect of the fourth toe with does have a seropurulent drainage on expression. There is no odor or sherlyn erythema. However there is some edema and periwound inflammation noted. Given the chronicity of this wound and previous x-ray changes per chart review ostial myelitis is a concern here. There is no interdigital maceration. The peripheral skin is hairless and atrophic. Wound Measurements and Assessment WC - Nurse 1 - General Ulcer Measurement Start: 06/22/18 13:47 Freq: Status: Active Protocol: Activity Type Activity Date Activity User E-Sign Co-Sign Detail Recorded Client Recorded Date Recorded By Document 06/22/18 13:47 DV [id number] 06/22/18 13:56 DV 06/22/18 13:47 Wound Center Nurse 1 [Ulcer Assessment] #2 L 4th toe -Combined with other wound No -Current Size (cm) - Length 0.4 -Current Size (cm) - Width 0.3 -Current Size (cm) - Depth 0.3 -Total Square Cm 0.12 -Photo Taken No -Epithelialization None Present -Tunneling No -Undermining/Tunneling No -Circular Undermining No -Classification - Thickness Full Thickness without Exposed Support Structure -Wound Margin Indistinct, Non -Visible -Slough/Fibrin Yes -Necrosis Amt Small (1-33%) -Necrotic Tissue Type Adherent Slough -Structure Exposed N/A -Texture (Kalani-wound Skin Appearance) Assessed Localized Edema -Moisture (Kalani-wound Skin Appearance Assessed ) Dry/Scaly -Color (Kalani-wound Skin Appearance) Assessed -Temperature (Kalani-wound Skin No Abnormality Appearance) (Pt Warm) -Ulcer Cleansing Rinsed/ Irrigated with Saline -Foul Odor after Cleansing No -Anesthetic Used 4% Lidocaine Solution #1 L 3rd toe -Combined with other wound No -Current Size (cm) - Length 0.3 -Current Size (cm) - Width 0.3 -Current Size (cm) - Depth 0.4 -Total Square Cm 0.09 -Photo Taken No -Epithelialization None Present -Tunneling No -Undermining/Tunneling No -Circular Undermining No -Classification - Thickness Full Thickness without Exposed Support Structure -Exudate Amt None Present (0 %) -Wound Margin Indistinct, Non -Visible -Granulation Amt None Present (0 %) -Necrosis Amt None Present (0 %) -Necrotic Tissue Type Adherent Slough -Texture (Kalani-wound Skin Appearance) No Abnormality -Moisture (Kalani-wound Skin Appearance No Abnormality ) -Color (Kalani-wound Skin Appearance) No Abnormality -Temperature (Kalani-wound Skin No Abnormality Appearance) (Pt Warm) -Ulcer Cleansing Rinsed/ Irrigated with Saline -Foul Odor after Cleansing No -Anesthetic Used 4% Lidocaine Solution [Edema Assessment] -Lower Limb Edema Present Yes -Left Calf (cm) 33.5 -Left Ankle (cm) 23.5 WC - Nurse 2 - General Ulcer CM Notes Start: 06/22/18 13:47 Freq: Status: Active Protocol: Activity Type Activity Date Activity User E-Sign Co-Sign Detail Recorded Client Recorded Date Recorded By Document 06/22/18 14:23 [email or web address] [id number] 06/22/18 14:49 LESVIA 06/22/18 14:23 Wound Center Nurse 2 [Procedure/Treatment] #2 L 4th toe -Time 14:35 -Correct Patient Yes -Correct Side, Site, Position Yes -Correct Procedure Yes -Procedure Performed Yes -Type of Procedure Debridement -Clinical Debridement Subcutaneous -Post Debridement Size (cm) - Length 0.5 -Post Debridement Size (cm) - Width 0.5 -Post Debridement Size (cm) - Depth 0.3 -Total Square Cm 0.25 -Wound/Ulcer Outcome Not Healed -Ulcer Cleansing Rinsed/ Irrigated with Saline -Foul Odor after Cleansing No -Bioengineered Tissue No -Bleeding Controlled with Pressure -Offloading Yes -Type of Offloading Surgical Shoe -Treatment Response Procedure Tolerated Well #1 L 3rd toe -Time 14:35 -Correct Patient Yes -Correct Side, Site, Position Yes -Correct Procedure Yes -Procedure Performed Yes -Type of Procedure Debridement -Clinical Debridement Subcutaneous -Post Debridement Size (cm) - Length 0.4 -Post Debridement Size (cm) - Width 0.3 -Post Debridement Size (cm) - Depth 0.4 -Total Square Cm 0.12 -Wound/Ulcer Outcome Not Healed -Ulcer Cleansing Rinsed/ Irrigated with Saline -Foul Odor after Cleansing No -Bioengineered Tissue No -Bleeding Controlled with Pressure -Offloading Yes -Type of Offloading Surgical Shoe -Treatment Response Procedure Tolerated Well [See Physician Procedure note for Specifics] Pain Scale: 0-10 Numeric [Pain] -Is Patient Pain Free? Yes Musculoskeletal: No Tenderness to Palpation of Joints or Extremities, Muscle Wasting, - - There is some dorsal contraction of the third and fourth toe of the left foot and this is mainly occurring at the metatarsophalangeal joint level. There is no sherlyn pain on palpation or manipulation of the ulcer sites are noted Neurological: - - Lack of normal epicritic sensation light touch bilateral lower extremities Psych/Mental Status: Normal Affect, Appropriate Debridement Note Post-Debridement Measurements/Treatment WC - Nurse 2 - General Ulcer CM Notes Start: 06/22/18 13:47 Freq: Status: Active Protocol: Activity Type Activity Date Activity User E-Sign Co-Sign Detail Recorded Client Recorded Date Recorded By Document 06/22/18 14:23 [email or web address] [id number] 06/22/18 14:49 LESVIA 06/22/18 14:23 Wound Center Nurse 2 #2 L 4th toe -Time 14:35 -Correct Patient Yes -Correct Side, Site, Position Yes -Correct Procedure Yes -Procedure Performed Yes -Type of Procedure Debridement -Clinical Debridement Subcutaneous -Post Debridement Size (cm) - Length 0.5 -Post Debridement Size (cm) - Width 0.5 -Post Debridement Size (cm) - Depth 0.3 -Total Square Cm 0.25 -Wound/Ulcer Outcome Not Healed -Ulcer Cleansing Rinsed/ Irrigated with Saline -Foul Odor after Cleansing No -Bioengineered Tissue No -Bleeding Controlled with Pressure -Offloading Yes -Type of Offloading Surgical Shoe -Treatment Response Procedure Tolerated Well #1 L 3rd toe -Time 14:35 -Correct Patient Yes -Correct Side, Site, Position Yes -Correct Procedure Yes -Procedure Performed Yes -Type of Procedure Debridement -Clinical Debridement Subcutaneous -Post Debridement Size (cm) - Length 0.4 -Post Debridement Size (cm) - Width 0.3 -Post Debridement Size (cm) - Depth 0.4 -Total Square Cm 0.12 -Wound/Ulcer Outcome Not Healed -Ulcer Cleansing Rinsed/ Irrigated with Saline -Foul Odor after Cleansing No -Bioengineered Tissue No -Bleeding Controlled with Pressure -Offloading Yes -Type of Offloading Surgical Shoe -Treatment Response Procedure Tolerated Well Pain Scale: 0-10 Numeric Is Patient Pain Free? Yes Wound debrided: distal 3 toe Laterality: Left Wound Grade/Stage: grade 3 Type of Debridement: Excisional debridement Anesthesia Used: 5% Lidocaine Gel Depth: in the subcutaneous layer Percentage of wound debrided: 100 Instrument Used: #15 blade Tissue Removed: fibrous, devitalized subcutaneous, biofilm, slough Severity: Fat Layer Exposed Amount of bleeding with debridement: Mild Bleeding Controlled with: Pressure Patient tolerated procedure well - Additional Wound Wound debrided: distal 4th toe Laterality: Left Wound Grade/Stage: grade 3 Type of Debridement: Excisional debridement Anesthesia Used: 5% Lidocaine Gel Depth: in the subcutaneous layer Percentage of wound debrided: 100 Instrument Used: #15 blade Tissue Removed: fibrous, devitalized subcutaneous, biofilm, slough Severity: Fat Layer Exposed Amount of bleeding with debridement: Mild Bleeding Controlled with: Pressure Patient tolerated procedure: Patient tolerated procedure well, - - Nail avulsion also performed at the site - Additional Wound Wound debrided: dorsal digit, 4th Laterality: Left Wound Grade/Stage: grade 1 Type of Debridement: Excisional debridement Anesthesia Used: 5% Lidocaine Gel Depth: in the subcutaneous layer Percentage of wound debrided: 100 Instrument Used: #15 blade Tissue Removed: fibrous, devitalized subcutaneous, biofilm, slough Severity: Fat Layer Exposed Amount of bleeding with debridement: Mild Bleeding Controlled with: Pressure Patient tolerated procedure: Patient tolerated procedure well Assessment/Plan Active Problems (Last Updated 08/27/17 @ 15:05 by JOHNY Brown) Diabetic foot ulcer with osteomyelitis (Chronic) 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 Chronic osteomyelitis. PAD. 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 I am also concerned of the loosening of the left fourth toenail. Verbal consent was obtained for nail avulsion and Betadine preparation was performed. This loose toenail was removed in total with a sterile hemostat and pressure was applied to maintain hemostasis. He has neuropathic and did not have any pain with this; no local anesthetic was utilized in addition to the topical anesthetic. He tolerated this well. The wound bed was evaluated and there is no visualized exposed bone or necrosis noted. To change the dressings with [employer] as he has been performing this well. He is taking doxycycline and Flagyl; refills were provided until he can see infectious disease next week. The openings in his toes are still present and there is some sero-purulence expressed to the fourth toe only. Orders given to evaluate him for possible treatment with hyperbaric oxygen at his last visit a month ago but weren't completed. Xrays of his foot and toes ordered to evaluate his osteomyelitis for further progression were done and it is relatively unchanged from s xrays but has progressed from his initial presentation per chart review. This was performed at an outside facility and I recommend updating this at this time regardless. Orders for new x-rays were ordered. He was encouraged to wear surgical shoe to offload his toes and to dress his wounds daily but he does not wear surgical shoe. I offered to modify his left athletic shoe to offload and he refuses. Compliance is a concern and this may be causing some limitation in healing potential. Records regarding his vascular evaluation reviewed show peripheral arterial disease without significant venous disease. I reviewed his previous noninvasive vascular studies from September 06, 2017 which were read by Dr. Smith. His right ankle-brachial index 0.54 and digital brachial index of 0.44. The left ankle-brachial index was 0.88 and the toe brachial index was 0.66. Calcification is noted. And these findings in the left lower extremity would be consistent with a vascular claudication range. It is also noted that his previous ejection fraction was 63%. I do not see any progress notes on file electronically or in the paper chart for office visit follow-up and develop plan. I will request these. If this has not been completed a referral will be reinitiated. I would like to consider either vascular intervention and possibly surgical amputation if delayed wound healing continues. . Updated labs were ordered today including CBC, CMP, and prealbumin. After toenail avulsion and saline irrigation of the left fourth toe, aerobic and anaerobic cultures were obtained at the previous seropurulent drainage site. I also encouraged improved glucose control and increased protein intake to promote healing. I answered all of his questions. I recommend he follows up to the wound healing center in 1 week or call sooner if he has any questions or concerns.
[2018-06-22 19:26] LABS: M R Staph aureus DNA By PCR Negative (Negative); Probe Check PASS; Specimen Processing Control PASS; Staph aureus DNA By PCR NEGATIVE (Negative)
[2018-07-06 13:16] LABS: Bedside Glucose 151 mg/dL (70-110)
[2018-07-06 13:21] VITALS: BP 151/66; PULSE 83; RESP 16; BMI 35.1
--- NOTE | 2018-07-06 14:49 | PN.PCM_ITS ---
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 Status: Chronic Current Visit: Yes Qualifiers: Code(s): E11.621 - Type 2 diabetes mellitus with foot ulcer; L97.524 - Non- pressure chronic ulcer of other part of left foot with necrosis of bone (2) Type 2 diabetes mellitus with diabetic polyneuropathy Status: Chronic Current Visit: Yes Code(s): E11.42 - Type 2 diabetes mellitus with diabetic polyneuropathy (3) Diabetic foot ulcer with osteomyelitis Status: Chronic Current Visit: Yes Code(s): E11.621 - Type 2 diabetes mellitus with foot ulcer; E11.69 - Type 2 diabetes mellitus with other specified complication; L97.509 - Non-pressure chronic ulcer of other part of unspecified foot with unspecified severity; M86.9 - Osteomyelitis, unspecified (4) CKD (chronic kidney disease) stage 3, GFR 30-59 ml/min Status: Chronic Current Visit: Yes Code(s): N18.3 - Chronic kidney disease, stage 3 (moderate) (5) Chronic ulcer of left foot with fat layer exposed Status: Chronic Current Visit: Yes Code(s): L97.522 - Non-pressure chronic ulcer of other part of left foot with fat layer exposed (6) Peripheral vascular disease Status: Chronic Current Visit: Yes Code(s): I73.9 - Peripheral vascular disease, unspecified (7) Onycholysis of toenail Status: Resolved Current Visit: Yes Code(s): L60.1 - Onycholysis Type of Wound Date of Service: 07/06/18 Chief Complaint: nonhealing wounds to toes, osteomyelitis History of Wound: Marshal is a 77 yo male that has been referred to the wound center for evaluation and treatment for nonhealing wounds of 4th toe. Progress of Wound: He denies any drainage from his toes, pain or any changes. He admits he does have neuropathy. He has been using Aquacel Ag rope to his open wounds of his toes. He has had a prior vascular workup and was informed that he does not have adequate blood flow to the toes. This workup was performed at the [facility] and some of his noninvasive study results are on file here. He most recently saw Dr. Smith. He also has diabetes with lack of normal sensation. He continues to receive dialysis Tuesdays, and Saturdays. Xray on 05/27/18, showed progression of osteomyelitis to all toes. He did not have updated x-rays at [facility]. He was previously advised to wear surgical shoe to offload however he is having trouble doing this with the cold weather. He is now amendable to have a shoe modification to his athletic sneaker that he presents with today. He denies fever, chill, nausea, vomiting, loss of appetite, toe pain. He continues to take oral antibiotics that were prescribed to him last week. He is scheduled to see infectious disease today. He admits he did have diarrhea with 2 episodes last night and this happens to him on an intermittent basis. He denies that this is related to his antibiotic use and this session has resolved. - Physical Exam Vital Signs Temp Pulse Resp BP 97.6 F L 83 16 151/66 H 06/18/18 00:16 07/06/18 13:21 07/06/18 13:21 07/06/18 13:21 General: Alert, Oriented x3, Cooperative Extremities: No cyanosis, Capillary Refill Less than 3 Seconds, No Calf Tenderness - Mild to left foot, Diminished Peripheral Pulses, Edema - Mild left foot, - - dorsal contraction of the left fourth toe at the metatarsophalangeal joint Skin: Ulcer/ Wound - There is fibrinous drainage of the dorsal left fourth toe ulcer site and this is very scant. The other left fourth toe ulcer site is fully epithelialized. There is no ulcer noted to the third toe. The previous nail avulsion site has healed and is fully epithelialized. There is no interdigital maceration. The peripheral skin is hairless and atrophic. The right foot was evaluated today and there are no ulcers or signs of infection. Wound Measurements and Assessment WC - Nurse 1 - General Ulcer Measurement Start: 06/22/18 13:47 Freq: Status: Active Protocol: Activity Type Activity Date Activity User E-Sign Co-Sign Detail Recorded Client Recorded Date Recorded By Document 07/06/18 13:21 [id number] 07/06/18 13:23 07/06/18 13:21 Wound Center Nurse 1 [Ulcer Assessment] #2 L 4th toe -Combined with other wound No -Current Size (cm) - Length 0.1 -Current Size (cm) - Width 0.1 -Current Size (cm) - Depth 0.1 -Total Square Cm 0.01 -Photo Taken No -Epithelialization None Present -Tunneling No -Undermining/Tunneling No -Circular Undermining No -Exudate Amt None Present (0 %) -Wound Margin Thickened -Texture (Kalani-wound Skin Appearance) Callus -Temperature (Kalani-wound Skin No Abnormality Appearance) (Pt Warm) -Tenderness on Palpation (Kalani-wound No Skin Appearance) -Ulcer Cleansing Rinsed/ Irrigated with Saline -Foul Odor after Cleansing No -Anesthetic Used 4% Lidocaine Solution #1 L 3rd toe -Combined with other wound No -Current Size (cm) - Length 0.1 -Current Size (cm) - Width 0.1 -Current Size (cm) - Depth 0.1 -Total Square Cm 0.01 -Photo Taken No -Epithelialization None Present -Tunneling No -Undermining/Tunneling No -Circular Undermining No -Wound Margin Thickened -Texture (Kalani-wound Skin Appearance) Callus -Temperature (Kalani-wound Skin No Abnormality Appearance) (Pt Warm) -Tenderness on Palpation (Kalani-wound No Skin Appearance) -Ulcer Cleansing Rinsed/ Irrigated with Saline -Foul Odor after Cleansing No -Anesthetic Used 4% Lidocaine Solution [Edema Assessment] -Lower Limb Edema Present NA WC - Nurse 2 - General Ulcer CM Notes Start: 06/22/18 13:47 Freq: Status: Active Protocol: Activity Type Activity Date Activity User E-Sign Co-Sign Detail Recorded Client Recorded Date Recorded By Document 07/06/18 13:35 LESVIA [id number] 07/06/18 13:37 LESVIA 07/06/18 13:35 Wound Center Nurse 2 [Procedure/Treatment] #2 L 4th toe -Time 13:35 -Correct Patient Yes -Correct Side, Site, Position Yes -Correct Procedure Yes -Procedure Performed Yes -Type of Procedure Debridement -Clinical Debridement Subcutaneous -Post Debridement Size (cm) - Length 0.3 -Post Debridement Size (cm) - Width 0.8 -Post Debridement Size (cm) - Depth 0.2 -Total Square Cm 0.24 -Wound/Ulcer Outcome Not Healed -Ulcer Cleansing Rinsed/ Irrigated with Saline -Foul Odor after Cleansing No -Bioengineered Tissue No -Bleeding Controlled with Pressure -Offloading Yes -Type of Offloading Surgical Shoe #1 L 3rd toe -Correct Patient No -Correct Side, Site, Position No -Correct Procedure No -Procedure Performed No -Post Debridement Size (cm) - Length 0 -Post Debridement Size (cm) - Width 0 -Post Debridement Size (cm) - Depth 0 -Total Square Cm 0 -Wound/Ulcer Outcome Healed- Epithelialized [See Physician Procedure note for Specifics] Pain Scale: 0-10 Numeric [Pain] -Is Patient Pain Free? Yes Musculoskeletal: No Tenderness to Palpation of Joints or Extremities, Muscle Wasting Neurological: - - Lack of normal epicritic sensation light touch left lower extremity Psych/Mental Status: Normal Affect, Appropriate Debridement Note Post-Debridement Measurements/Treatment WC - Nurse 2 - General Ulcer CM Notes Start: 06/22/18 13:47 Freq: Status: Active Protocol: Activity Type Activity Date Activity User E-Sign Co-Sign Detail Recorded Client Recorded Date Recorded By Document 06/22/18 14:23 [id number] 06/22/18 14:49 Document 07/06/18 13:35 [id number] 07/06/18 13:37 06/22/18 07/06/18 14:23 13:35 Wound Center Nurse 2 #2 L 4th toe -Time 14:35 13:35 -Correct Patient Yes Yes -Correct Side, Site, Position Yes Yes -Correct Procedure Yes Yes -Procedure Performed Yes Yes -Type of Procedure Debridement Debridement -Clinical Debridement Subcutaneous Subcutaneous -Post Debridement Size (cm) - Length 0.5 0.3 -Post Debridement Size (cm) - Width 0.5 0.8 -Post Debridement Size (cm) - Depth 0.3 0.2 -Total Square Cm 0.25 0.24 -Wound/Ulcer Outcome Not Healed Not Healed -Ulcer Cleansing Rinsed/ Rinsed/ Irrigated with Irrigated with Saline Saline -Foul Odor after Cleansing No No -Bioengineered Tissue No No -Bleeding Controlled with Pressure Pressure -Offloading Yes Yes -Type of Offloading Surgical Shoe Surgical Shoe -Treatment Response Procedure Tolerated Well #1 L 3rd toe -Time 14:35 -Correct Patient Yes No -Correct Side, Site, Position Yes No -Correct Procedure Yes No -Procedure Performed Yes No -Type of Procedure Debridement -Clinical Debridement Subcutaneous -Post Debridement Size (cm) - Length 0.4 0 -Post Debridement Size (cm) - Width 0.3 0 -Post Debridement Size (cm) - Depth 0.4 0 -Total Square Cm 0.12 0 -Wound/Ulcer Outcome Not Healed Healed- Epithelialized -Ulcer Cleansing Rinsed/ Irrigated with Saline -Foul Odor after Cleansing No -Bioengineered Tissue No -Bleeding Controlled with Pressure -Offloading Yes -Type of Offloading Surgical Shoe -Treatment Response Procedure Tolerated Well Pain Scale: 0-10 Numeric Is Patient Pain Free? 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 Healed third left toe ulcer. Chronic osteomyelitis. PAD. 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 His one ulcer site was debrided as noted in the clinical panel. The previous nail avulsion site has healed. He has neuropathy and did not have any pain with the debridement. He tolerated th is well. The wound bed was evaluated and there is no visualized exposed bone or necrosis noted. There is no longer infectious drainage and his kalani-ulcer site inflammation has resolved. There is continued fibrinous drainage. To continue on oral antibiotics; a refill will be provided for 6 weeks under the management of infectious disease. His microbiology results demonstrated Staphylococcus ep idermidis, anaerobic cocci, and enterococcus faecalis. Infectious disease physician, Dr. Celis, did evaluate and make this recommendation today. Input is greatly appreciated. If failure to improve continues IV antibiotics versus surgical intervention will be considered. We discussed the pros and cons to oral versus IV antibiotics. After further discussion with the patient it does not appear his short duration of diarrhea is related to his antibiotic use; he will monitor this and communicate if this returns. He continues to take Flagyl and doxycycline. Orders given to evaluate him for possible treatment with hyperbaric oxygen at his last visit a month ago but weren't completed. Xrays of his foot and toes ordered to evaluate his osteomyelitis for further progression were done and it is relatively unchanged from xrays but has progressed from his initial presentation per chart review. This was performed at an outside facility and I recommend updating this at this time regardless. Orders for new x-rays were previously provided he still did not obtain this. He was advised to get this done prior to his follow-up next week. He was encouraged to wear surgical shoe to offload his toes this. I offered to modify his left athletic shoe to offload and an 'x' was cut in the dorsal lateral aspect of the upper part of the shoe to take pressure off of the fourth toe ulceration site. Records regarding his vascular evaluation reviewed show peripheral arterial disease without significant venous disease. I reviewed his previous noninvasive vascular studies from September 06, 2017 which were read by Dr. Smith. His right ankle-brachial index 0.54 and digital brachial index of 0.44. The left ankle-brachial index was 0.88 and the toe brachial index was 0.66. Calcification is noted. And these findings in the left lower extremity would be consistent with a vascular claudication range. It is also noted that his previous ejection fraction was 63%. I do not see any progress notes on file electronically or in the paper chart for office visit follow-up and develop plan. The files have been faxed over. I would like to consider either vascular intervention and possibly surgical amputation if delayed wound healing continues. . Updated labs were ordered including CBC, CMP, and prealbumin. He did not obtain these yet and I encouraged him to to improve compliance. I also encouraged improved glucose control and increased protein intake to promote healing. In regards to the drainage noted, gout remains a differential diagnosis. If this fibrinous and potentially tophaceous drainage continues a pathology sample will be obtained with additional crystal analysis. Further medical management will be considered. I answered all of his questions. I uri mmend he follows up to the wound healing center in 1 week or call sooner if he has any questions or concerns.
== END 2018-07-18 23:59 ==
LOC: WC 13:00
PROVIDERS: PCP Family Medicine; Visit Provider Family Medicine
DX: E11.621 Type 2 diabetes mellitus with foot ulcer (principal); E11.22 Type 2 diabetes mellitus with diabetic chronic kidney disease; E11.51 Type 2 diabetes mellitus with diabetic peripheral angiopathy without gangrene; E11.42 Type 2 diabetes mellitus with diabetic polyneuropathy; N18.3 Chronic kidney disease, stage 3 (moderate); Z91.19 Patient's noncompliance with other medical treatment and regimen; R09.89 Other specified symptoms and signs involving the circulatory and respiratory systems; R60.0 Localized edema; L97.522 Non-pressure chronic ulcer of other part of left foot with fat layer exposed; M86.672 Other chronic osteomyelitis, left ankle and foot; E11.65 Type 2 diabetes mellitus with hyperglycemia
CPT/HCPCS: 11042; 82962; 87070; 87075; 87077; 87186; 87205; 87640

== ENCOUNTER 2018-08-10 11:00 | Outpatient (RCR) | payer MEDICARE, SELFPAY ==
[2018-07-19 00:25] VITALS: BP 151/66; PULSE 83; RESP 16; TEMP 36.4
[2018-07-27 11:37] VITALS: BP 148/83; PULSE 82; RESP 18; TEMP 35.7; BMI 35.1
--- NOTE | 2018-07-27 12:08 | PCM.WC.PN ---
(1) Diarrhea Status: Acute Current Visit: Yes Code(s): R19.7 - Diarrhea, unspecified (2) Chronic osteomyelitis of left foot Status: Chronic Current Visit: Yes Code(s): M86.672 - Other chronic osteomyelitis, left ankle and foot (3) Type 2 diabetes mellitus with diabetic polyneuropathy Status: Chronic Current Visit: Yes Code(s): E11.42 - Type 2 diabetes mellitus with diabetic polyneuropathy (4) Chronic ulcer of left foot with fat layer exposed Status: Resolved Current Visit: Yes Code(s): L97.522 - Non-pressure chronic ulcer of other part of left foot with fat layer exposed (5) Peripheral vascular disease Status: Chronic Current Visit: Yes Code(s): I73.9 - Peripheral vascular disease, unspecified Type of Wound Date of Service: 07/27/18 Chief Complaint: nonhealing wounds to toes, osteomyelitis. Diarrhea History of Wound: This pleasant 78-year-old male follows up for left fourth and third toe ulcers. He denies any drainage from his toes, pain, redness. He thinks the ulcer sites have healed. He admits he does have neuropathy. He has had a prior vascular workup and was informed that he does not have adequate blood flow to the toes. This workup was performed at the [facility] and some of his noninvasive study results are on file here. He did not follow-up with the vascular surgery physician and has a history of delayed healing to the foot. He continues to receive dialysis Tuesdays, and Saturdays. He wears a modified shoe. He also continues to take Zyvox and Augmentin as prescribed by infectious disease. He denies fever, chill, nausea, vomiting, loss of appetite, toe pain. He relates diarrhea approximately 2 times a day that has progressed during the duration of antibiotic use. Progress of Wound: Healed - Physical Exam Vital Signs Temp Pulse Resp BP 96.2 F L 82 18 148/83 H 07/27/18 11:37 07/27/18 11:37 07/27/18 11:37 07/27/18 11:37 General: Alert, Oriented x3, Cooperative HEENT: Atraumatic Extremities: No cyanosis, Capillary Refill Less than 3 Seconds - All digits left foot, No Calf Tenderness - Negative Aleksandra and Snyder sign left lower extremity, Diminished Peripheral Pulses, Edema - Mild left foot Skin: Ulcer/ Wound - Full epithelialization is noted and there is no purulence, erythema, streaking, odor, infection, interdigital maceration. The skin is hairless and atrophic left foot Wound Measurements and Assessment WC - Nurse 1 - General Ulcer Measurement Start: 07/27/18 11:36 Freq: Status: Active Protocol: Activity Type Activity Date Activity User E-Sign Co-Sign Detail Recorded Client Recorded Date Recorded By Document 07/27/18 11:37 [facility] [id number] 07/27/18 11:40 [facility] 07/27/18 11:37 Wound Center Nurse 1 [Ulcer Assessment] #2 L 4th toe -Combined with other wound No -Current Size (cm) - Length 0.1 -Current Size (cm) - Width 0.1 -Current Size (cm) - Depth 0.1 -Total Square Cm 0.01 -Photo Taken No -Epithelialization Large 67-100% -Tunneling No -Undermining/Tunneling No -Circular Undermining No -Exudate Amt None Present -Texture (Kalani-wound Skin Appearance) Assessed Scarring -Moisture (Kalani-wound Skin Appearance Dry/Scaly ) -Color (Kalani-wound Skin Appearance) Assessed -Temperature (Kalani-wound Skin No Abnormality Appearance) (Pt Warm) -Tenderness on Palpation (Kalani-wound No Skin Appearance) -Ulcer Cleansing Rinsed/ Irrigated with Saline -Foul Odor after Cleansing No -Anesthetic Used 5% Lidocaine Gel #1 L 3rd toe -Combined with other wound No -Current Size (cm) - Length 0.1 -Current Size (cm) - Width 0.1 -Current Size (cm) - Depth 0.1 -Total Square Cm 0.01 -Photo Taken No -Epithelialization Large 67-100% -Tunneling No -Undermining/Tunneling No -Circular Undermining No -Exudate Amt None Present -Texture (Kalani-wound Skin Appearance) Assessed Scarring -Moisture (Kalani-wound Skin Appearance Assessed ) Dry/Scaly -Color (Kalani-wound Skin Appearance) Assessed -Temperature (Kalani-wound Skin No Abnormality Appearance) (Pt Warm) -Tenderness on Palpation (Kalani-wound No Skin Appearance) -Ulcer Cleansing Rinsed/ Irrigated with Saline -Foul Odor after Cleansing No -Anesthetic Used 5% Lidocaine Gel WC - Nurse 2 - General Ulcer CM Notes Start: 07/27/18 11:36 Freq: Status: Active Protocol: Activity Type Activity Date Activity User E-Sign Co-Sign Detail Recorded Client Recorded Date Recorded By Document 07/27/18 11:54 [email or web address] [id number] 07/27/18 11:55 LESVIA 07/27/18 11:54 Wound Center Nurse 2 [Procedure/Treatment] #2 L 4th toe -Correct Patient No -Correct Side, Site, Position No -Correct Procedure No -Procedure Performed No -Post Debridement Size (cm) - Length 0 -Post Debridement Size (cm) - Width 0 -Post Debridement Size (cm) - Depth 0 -Total Square Cm 0 -Wound/Ulcer Outcome Healed- Epithelialized #1 L 3rd toe -Correct Patient No -Correct Side, Site, Position No -Correct Procedure No -Procedure Performed No -Post Debridement Size (cm) - Length 0 -Post Debridement Size (cm) - Width 0 -Post Debridement Size (cm) - Depth 0 -Total Square Cm 0 -Wound/Ulcer Outcome Healed- Epithelialized [See Physician Procedure note for Specifics] Pain Scale: 0-10 Numeric [Pain] -Is Patient Pain Free? Yes Musculoskeletal: No Tenderness to Palpation of Joints or Extremities, Muscle Wasting, - - No palpation pain on recently healed ulcer sites. There is no fluctuance or bogginess to left foot Neurological: - - Lack of normal epicritic sensation to light touch consistent with neuropathy left lower extremity Psych/Mental Status: Normal Affect, Appropriate Debridement Note Post-Debridement Measurements/Treatment WC - Nurse 2 - General Ulcer CM Notes Start: 07/27/18 11:36 Freq: Status: Active Protocol: Activity Type Activity Date Activity User E-Sign Co-Sign Detail Recorded Client Recorded Date Recorded By Document 07/27/18 11:54 [email or web address] [id number] 07/27/18 11:55 JF 07/27/18 11:54 Wound Center Nurse 2 #2 L 4th toe -Correct Patient No -Correct Side, Site, Position No -Correct Procedure No -Procedure Performed No -Post Debridement Size (cm) - Length 0 -Post Debridement Size (cm) - Width 0 -Post Debridement Size (cm) - Depth 0 -Total Square Cm 0 -Wound/Ulcer Outcome Healed- Epithelialized #1 L 3rd toe -Correct Patient No -Correct Side, Site, Position No -Correct Procedure No -Procedure Performed No -Post Debridement Size (cm) - Length 0 -Post Debridement Size (cm) - Width 0 -Post Debridement Size (cm) - Depth 0 -Total Square Cm 0 -Wound/Ulcer Outcome Healed- Epithelialized Pain Scale: 0-10 Numeric Is Patient Pain Free? 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 Healed third left toe ulcer. Chronic osteomyelitis. PAD. 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 No debridements were performed today due to ulcer healing. He was reassured no ulcers or infections clinically are noted today. The previous nail avulsion site also remains healed. To complete oral antibiotic course as prescribed by infectious disease. His previous microbiology results demonstrated Staphylococcus epidermidis, anaerobic cocci, and enterococcus faecalis. The anticipated stop date is August 10, 2018. After further discussion with the patient it does seemed to have continued ongoing diarrhea. He will be screened for C. difficile in order for stool sample was provided. I also advised him to take a probiotic once daily and to avoid taking this at the exact same time as his antibiotics. He plans to take the probiotic at lunchtime and the antibiotic in the morning and evening so these do not interfere. To continue to wear offloading shoe that was fabricated. Records regarding his vascular evaluation reviewed show peripheral arterial disease without significant venous disease. I reviewed his previous noninvasive vascular studies from September 06, 2017 which were read by Dr. Smith. His right ankle-brachial index 0.54 and digital brachial index of 0.44. The left ankle-brachial index was 0.88 and the toe brachial index was 0.66. Calcification is noted. And these findings in the left lower extremity would be consistent with a vascular claudication range. It is also noted that his previous ejection fraction was 63%. I do not see any progress notes on file electronically or in the paper chart for office visit follow-up and develop plan. A referral to Dr. Smith was recommended. To continue with proper glycemic control to prevent re-ulcer formation. He was reassured he does not need to perform any dressing changes because the ulcer site has healed. I answered all of his questions. I recommend he follows up to the wound healing center in 2 weeks or call sooner if he has any questions or concerns. I answered all his questions.
--- NOTE | 2018-07-27 12:13 | PN.PCM_ITS ---
(1) Diarrhea Status: Acute Current Visit: Yes Code(s): R19.7 - Diarrhea, unspecified (2) Chronic osteomyelitis of left foot Status: Chronic Current Visit: Yes Code(s): M86.672 - Other chronic osteomy elitis, left ankle and foot (3) Type 2 diabetes mellitus with diabetic polyneuropathy Status: Chronic Current Visit: Yes Code(s): E11.42 - Type 2 diabetes mellitus with diabetic polyneuropathy (4) Chronic ulcer of left foot with fat layer exposed Status: Resolved Current Visit: Yes Code(s): L97.522 - Non-pressure chronic ulcer of other part of left foot with fat layer exposed (5) Peripheral vascular disease Status: Chronic Current Visit: Yes Code(s): I73.9 - Peripheral vascular disease, unspecified Type of Wound Date of Service: 07/27/18 Chief Complaint: nonhealing wounds to toes, osteomyelitis. Diarrhea History of Wound: This pleasant 78-year-old male follows up for left fourth and third toe ulcers. He denies any drainage from his toes, pain, redness. He thinks the ulcer sites have healed. He admits he does have neuropathy. He has had a prior vascular workup and was informed that he does not have adequate blood flow to the toes. This workup was performed at the [facility] and some of his noninvasive study results are on file here. He did not follow-up with the vascular surgery physician and has a history of delayed healing to the foot. He continues to receive dialysis Tuesdays, and Saturdays. He wears a modified shoe. He also continues to take Zyvox and Augmentin as prescribed by infectious disease. He denies fever, chill, nausea, vomiting, loss of appetite, toe pain. He relates diarrhea approximately 2 times a day that has progressed during the duration of antibiotic use. Progress of Wound: Healed - Physical Exam Vital Signs Temp Pulse Resp BP 96.2 F L 82 18 148/83 H 07/27/18 11:37 07/27/18 11:37 07/27/18 11:37 07/27/18 11:37 General: Alert, Oriented x3, Cooperative HEENT: Atraumatic Extremities: No cyanosis, Capillary Refill Less than 3 Seconds - All digits left foot, No Calf Tenderness - Negative Aleksandra and Snyder sign left lower extremity, Diminished Peripheral Pulses, Edema - Mild left foot Skin: Ulcer/ Wound - Full epithelialization is noted and there is no purulence, erythema, streaking, odor, infection, interdigital maceration. The skin is hairless and atrophic left foot Wound Measurements and Assessment WC - Nurse 1 - General Ulcer Measurement Start: 07/27/18 11:36 Freq: Status: Active Protocol: Activity Type Activity Date Activity User E-Sign Co-Sign Detail Recorded Client Recorded Date Recorded By Document 07/27/18 11:37 [facility] [id number] 07/27/18 11:40 [facility] 07/27/18 11:37 Wound Center Nurse 1 [Ulcer Assessment] #2 L 4th toe -Combined with other wound No -Current Size (cm) - Length 0.1 -Current Size (cm) - Width 0.1 -Current Size (cm) - Depth 0.1 -Total Square Cm 0.01 -Photo Taken No -Epithelialization Large 67-100% -Tunneling No -Undermining/Tunneling No -Circular Undermining No -Exudate Amt None Present -Texture (Kalani-wound Skin Appearance) Assessed Scarring -Moisture (Kalani-wound Skin Appearance Dry/Scaly ) -Color (Kalani-wound Skin Appearance) Assessed -Temperature (Kalani-wound Skin No Abnormality Appearance) (Pt Warm) -Tenderness on Palpation (Kalani-wound No Skin Appearance) -Ulcer Cleansing Rinsed/ Irrigated with Saline -Foul Odor after Cleansing No -Anesthetic Used 5% Lidocaine Gel #1 L 3rd toe -Combined with other wound No -Current Size (cm) - Length 0.1 -Current Size (cm) - Width 0.1 -Current Size (cm) - Depth 0.1 -Total Square Cm 0.01 -Photo Taken No -Epithelialization Large 67-100% -Tunneling No -Undermining/Tunneling No -Circular Undermining No -Exudate Amt None Present -Texture (Kalani-wound Skin Appearance) Assessed Scarring -Moisture (Kalani-wound Skin Appearance Assessed ) Dry/Scaly -Color (Kalani-wound Skin Appearance) Assessed -Temperature (Kalani-wound Skin No Abnormality Appearance) (Pt Warm) -Tenderness on Palpation (Kalani-wound No Skin Appearance) -Ulcer Cleansing Rinsed/ Irrigated with Saline -Foul Odor after Cleansing No -Anesthetic Used 5% Lidocaine Gel WC - Nurse 2 - General Ulcer CM Notes Start: 07/27/18 11:36 Freq: Status: Active Protocol: Activity Type Activity Date Activity User E-Sign Co-Sign Detail Recorded Client Recorded Date Recorded By Document 07/27/18 11:54 [email or web address] [id number] 07/27/18 11:55 [facility] 07/27/18 11:54 Wound Center Nurse 2 [Procedure/Treatment] #2 L 4th toe -Correct Patient No -Correct Side, Site, Position No -Correct Procedure No -Procedure Performed No -Post Debridement Size (cm) - Length 0 -Post Debridement Size (cm) - Width 0 -Post Debridement Size (cm) - Depth 0 -Total Square Cm 0 -Wound/Ulcer Outcome Healed- Epithelialized #1 L 3rd toe -Correct Patient No -Correct Side, Site, Position No -Correct Procedure No -Procedure Performed No -Post Debridement Size (cm) - Length 0 -Post Debridement Size (cm) - Width 0 -Post Debridement Size (cm) - Depth 0 -Total Square Cm 0 -Wound/Ulcer Outcome Healed- Epithelialized [See Physician Procedure note for Specifics] Pain Scale: 0-10 Numeric [Pain] -Is Patient Pain Free? Yes Musculoskeletal: No Tenderness to Palpation of Joints or Extremities, Muscle Wasting, - - No palpation pain on recently healed ulcer sites. There is no fluctuance or bogginess to left foot Neurological: - - Lack of normal epicritic sensation to light touch consistent with neuropathy left lower extremity Psych/Mental Status: Normal Affect, Appropriate Debridement Note Post-Debridement Measurements/Treatment WC - Nurse 2 - General Ulcer CM Notes Start: 07/27/18 11:36 Freq: Status: Active Protocol: Activity Type Activity Date Activity User E-Sign Co-Sign Detail Recorded Client Recorded Date Recorded By Document 07/27/18 11:54 [email or web address] [id number] 07/27/18 11:55 07/27/18 11:54 Wound Center Nurse 2 #2 L 4th toe -Correct Patient No -Correct Side, Site, Position No -Correct Procedure No -Procedure Performed No -Post Debridement Size (cm) - Length 0 -Post Debridement Size (cm) - Width 0 -Post Debridement Size (cm) - Depth 0 -Total Square Cm 0 -Wound/Ulcer Outcome Healed- Epithelialized #1 L 3rd toe -Correct Patient No -Correct Side, Site, Position No -Correct Procedure No -Procedure Performed No -Post Debridement Size (cm) - Length 0 -Post Debridement Size (cm) - Width 0 -Post Debridement Size (cm) - Depth 0 -Total Square Cm 0 -Wound/Ulcer Outcome Healed- Epithelialized Pain Scale: 0-10 Numeric Is Patient Pain Free? 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 Healed third left toe ulcer. Chronic osteomyelitis. PAD. 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 No debridements were performed today due to ulcer healing. He was reassured no ulcers or infections clinically are noted today. The previous nail avulsion site also remains healed. To complete oral antibiotic course as prescribed by infectious disease. His previous microbiology results demonstrated Staphylococcus epidermidis, anaerobic cocci, and enterococcus faecalis. The anticipated stop date is August 10, 2018. After further discussion with the patient it does seemed to have continued ongoing diarrhea. He will be screened for C. difficile in order for stool sampl e was provided. I also advised him to take a probiotic once daily and to avoid taking this at the exact same time as his antibiotics. He plans to take the probiotic at lunchtime and the antibiotic in the morning and evening so these do not interfere. To continue to wear offloading shoe that was fabricated. Records regarding his vascular evaluation reviewed show peripheral arterial disease without significant venous disease. I reviewed his previous noninvasive vascular studies from September 06, 2017 which were read by Dr. Smith. His right ankle-brachial index 0.54 and digital brachial index of 0.44. The left ankle-brachial index was 0.88 and the toe brachial index was 0.66. Calcification is noted. And these findings in the left lower extremity would be consistent with a vascular claudication range. It is also noted that his previous ejection fraction was 63%. I do not see any progress notes on file electronically or in the paper chart for office visit follow-up and develop pl an. A referral to Dr. Smith was recommended. To continue with proper glycemic control to prevent re-ulcer formation. He was reassured he does not need to perform any dressing changes because the ulcer site has healed. I answered all of his questions. I recommend he follows up to the wound healing center in 2 weeks or call sooner if he has any questions or concerns. I answered all his questions.
[2018-08-10 11:06] VITALS: BP 159/65; PULSE 90; RESP 16; TEMP 35.8; BMI 35.1
--- NOTE | 2018-08-10 11:27 | PCM.WC.PN ---
(1) Chronic ulcer of left foot with fat layer exposed Status: Resolved Current Visit: Yes Code(s): L97.522 - Non-pressure chronic ulcer of other part of left foot with fat layer exposed (2) Chronic osteomyelitis of left foot Status: Resolved Current Visit: Yes Code(s): M86.672 - Other chronic osteomyelitis, left ankle and foot (3) Type 2 diabetes mellitus with diabetic polyneuropathy Status: Resolved Current Visit: Yes Code(s): E11.42 - Type 2 diabetes mellitus with diabetic polyneuropathy (4) Peripheral vascular disease Status: Chronic Current Visit: Yes Code(s): I73.9 - Peripheral vascular disease, unspecified Type of Wound Date of Service: 08/10/18 Chief Complaint: Ulcers to left foot History of Wound: This pleasant 78-year-old male follows up for left fourth and third toe ulcers. He denies any drainage from his toes, pain, redness. He thinks the ulcer sites have remained healed. He admits he does have neuropathy and did not feel that his shoes and socks are soaking wet upon arrival today. He has had a prior vascular workup and was informed that he does not have adequate blood flow to the toes. This workup was performed at the [facility] and some of his noninvasive study results are on file here. He did not follow-up with the vascular surgery physician and has a history of delayed healing to the foot. He is scheduled see Dr. Smith in September. He continues to receive dialysis Tuesdays, and Saturdays. He wears a modified shoe. He is completed a course of antibiotics for treatment of osteomyelitis under the management of infectious disease. he denies fever, chill, nausea, vomiting, loss of appetite, toe pain,, foot redness or drainage. He denies diarrhea today. Progress of Wound: Remains healed - Physical Exam Vital Signs Temp Pulse Resp BP 96.4 F L 90 16 159/65 H 08/10/18 11:06 08/10/18 11:06 08/10/18 11:06 08/10/18 11:06 General: Alert, Oriented x3, Cooperative Extremities: No cyanosis, Capillary Refill Less than 3 Seconds, No Calf Tenderness - Negative Aleksandra and Snyder, Diminished Peripheral Pulses, Edema - Minimal left foot, - - Lesser toe deformities noted Skin: Ulcer/ Wound - No purulence, erythema, streaking, odor, or infection or interdigital maceration or necrosis. The previous ulcer sites remain fully epithelialized and are healed. The peripheral skin is hairless and atrophic. Wound Measurements and Assessment WC - Nurse 1 - General Ulcer Measurement Start: 07/27/18 11:36 Freq: Status: Active Protocol: Activity Type Activity Date Activity User E-Sign Co-Sign Detail Recorded Client Recorded Date Recorded By Document 08/10/18 11:06 [id number] 08/10/18 11:07 08/10/18 11:06 Wound Center Nurse 1 [Edema Assessment] -Lower Limb Edema Present No - Nurse 2 - General Ulcer CM Notes Start: 07/27/18 11:36 Freq: Status: Active Protocol: Activity Type Activity Date Activity User E-Sign Co-Sign Detail Recorded Client Recorded Date Recorded By Document 08/10/18 11:12 [id number] 08/10/18 11:14 08/10/18 11:12 Pain Scale: 0-10 Numeric [Pain] -Is Patient Pain Free? Yes Musculoskeletal: No Tenderness to Palpation of Joints or Extremities, Muscle Wasting Neurological: - - Lack of epicritic sensation consistent with neuropathy left foot Psych/Mental Status: Normal Affect, Appropriate Debridement Note Post-Debridement Measurements/Treatment - Nurse 2 - General Ulcer CM Notes Start: 07/27/18 11:36 Freq: Status: Active Protocol: Activity Type Activity Date Activity User E-Sign Co-Sign Detail Recorded Client Recorded Date Recorded By Document 07/27/18 11:54 [id number] 07/27/18 11:55 Document 08/10/18 11:12 [id number] 08/10/18 11:14 07/27/18 08/10/18 11:54 11:12 Wound Center Nurse 2 #2 L 4th toe -Correct Patient No -Correct Side, Site, Position No -Correct Procedure No -Procedure Performed No -Post Debridement Size (cm) - Length 0 -Post Debridement Size (cm) - Width 0 -Post Debridement Size (cm) - Depth 0 -Total Square Cm 0 -Wound/Ulcer Outcome Healed- Epithelialized #1 L 3rd toe -Correct Patient No -Correct Side, Site, Position No -Correct Procedure No -Procedure Performed No -Post Debridement Size (cm) - Length 0 -Post Debridement Size (cm) - Width 0 -Post Debridement Size (cm) - Depth 0 -Total Square Cm 0 -Wound/Ulcer Outcome Healed- Epithelialized Pain Scale: 0-10 Numeric Is Patient Pain Free? 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 Healed third left toe ulcer. Chronic osteomyelitis - treated. PAD. 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 No debridements were performed today due to ulcer healing. He was reassured no ulcers or infections clinically are noted today. He completed a course of oral antibiotic prescribed by infectious disease. His previous microbiology results demonstrated Staphylococcus epidermidis, anaerobic cocci, and enterococcus faecalis. He will be screened for C. difficile in order for stool sample was provided. He did not proceed with this as advised. He does not complain of distinct diarrhea at this time today. To continue to wear offloading shoe that was fabricated. To resume dry shoes when he returns home. Stockinette was dispensed and he was advised to avoid wearing his wet socks outside. Records regarding his vascular evaluation reviewed show peripheral arterial disease without significant venous disease. I reviewed his previous noninvasive vascular studies from September 06, 2017 which were read by Dr. Smith. His right ankle-brachial index 0.54 and digital brachial index of 0.44. The left ankle-brachial index was 0.88 and the toe brachial index was 0.66. Calcification is noted. And these findings in the left lower extremity would be consistent with a vascular claudication range. It is also noted that his previous ejection fraction was 63%. A referral to Dr. Smith was recommended, and he has an appointment scheduled for September 2018. To continue with proper glycemic control to prevent re-ulcer formation. He was reassured he does not need to perform any dressing changes because the ulcer site has healed. I answered all of his questions. He is discharged from the wound healing center at this time due to ulcer healing. [facility] for [facility] care, diabetic foot reassessment, and for extra-depth diabetic shoes and specialized insoles to further prevent limb loss and further ulcer formation.
== END 2018-08-18 23:59 ==
LOC: WC 11:00
PROVIDERS: Family Provider Family Medicine; PCP Family Medicine; Visit Provider Family Medicine
DX: Z09 Encounter for follow-up examination after completed treatment for conditions other than malignant neoplasm (principal); E11.22 Type 2 diabetes mellitus with diabetic chronic kidney disease; E11.51 Type 2 diabetes mellitus with diabetic peripheral angiopathy without gangrene; Z91.19 Patient's noncompliance with other medical treatment and regimen; N18.6 End stage renal disease; Z99.2 Dependence on renal dialysis; E11.65 Type 2 diabetes mellitus with hyperglycemia
CPT/HCPCS: 99212; 99213; G0463

== ENCOUNTER → 2019-05-24 13:54 | Outpatient (CLI) | payer MEDICARE, SELFPAY ==
[2019-02-22 09:53] VITALS: BMI 35.1
[2019-05-08 10:37] VITALS: BMI 34.7
--- NOTE | 2019-05-24 15:45 | NEURO ---
NCS and/or EMG Patient Report Ordering Doctor: Jo-Ann Desai DATE OF SERVICE: 05/24/19 Mark Anthony Mares is a 78-year-old male presents for electrodiagnostic testing of the upper limbs. He has chief complaint of numbness and tingling in both hands. Electrodiagnostic findings: Median motor nerve demonstrates prolonged distal latency bilaterally with reduced amplitude. Proximal response could not be obtained on the left side. There is a drop in ulnar conduction velocity across the elbow bilaterally. Prolonged median and ulnar F waves are noted. Absent median sensory responses bilaterally at both the wrist and palm. Needle EMG testing was performed in the right upper limb. All muscles tested showed no evidence of denervation with normal motor unit action potentials. Electrodiagnostic impression: This is an abnormal study in the upper limbs. 1. Electrodiagnostic findings demonstrate bilateral median mononeuropathy. This is consistent with an advanced bilateral carpal tunnel syndrome. 2. Electrodiagnostic findings demonstrate bilateral ulnar neuropathy, consistent with a mild right cubital tunnel syndrome and a moderate left cubital tunnel syndrome If there are any further questions, please not hesitate to contact me
== END ==
PROVIDERS: Family Provider Family Medicine; PCP Family Medicine; Referring Provider Nurse Practitioner Primary Care; Visit Provider Nurse Practitioner Primary Care
DX: R20.0 Anesthesia of skin (principal)
CPT/HCPCS: 95886; 95912